=== PATIENT | female | born 1995 | race Caucasian/White ===

== ENCOUNTER 2023-10-18 16:47 | Outpatient (OUT) | payer OTHER, SELFPAY ==
[2023-10-18 17:05] LABS: Basophils Percent Auto 0.5 % (0.2-2.0); Eosinophils Absolute Auto 0.1 10^3/uL (0.0-0.7); Eosinophils Percent Auto 1.8 % (0.9-7.0); Hematocrit 37.3 % (36.0-48.0); Hemoglobin 12.3 g/dL (12.0-16.0); Immature Granulocytes Abs Auto 0.01 10^3/uL (0.00-0.03); Immature Granulocytes Pct Auto 0.2 % (0.0-0.5); Lymphocytes Absolute Auto 1.9 10^3/uL (1.2-3.8); Lymphocytes Percent Auto 29.3 % (20.5-60.0); Mean Corpuscular Hemoglobin 27.6 pg (26.7-34.0); Mean Corpuscular Volume 83.8 fL (81.0-99.0); Mean Platelet Volume 10.1 fL (9.5-13.5); Monocytes Absolute Auto 0.3 10^3/uL (0.3-0.8); Neutrophils Absolute Auto 4.2 10^3/uL (1.4-6.5); Neutrophils Percent Auto 63.2 % (43.0-75.0); Platelet Count 306 10^3/uL (150-450); Red Blood Count 4.45 10^6/uL (4.20-5.40); Red Cell Distribution Width 12.5 % (11.0-15.0); White Blood Count 6.6 10^3/uL (4.0-11.0)
[2023-10-18 17:12] LABS: Erythrocyte Sedimentation Rate 9 mm/hr (<=20)
[2023-10-18 17:41] LABS: Alanine Aminotransferase 16 U/L (14-59); Aspartate Amino Transferase 13 U/L (15-37); Estimated GFR (African America >60 (>=60); Estimated GFR (Non-African Ame >60 (>=60)
[2023-10-18 17:56] LABS: C Reactive Protein <0.50 mg/dL (<=0.50)
== END 2023-10-18 16:48 | disposition home or self-care (01) ==
LOC: LAB 16:52
PROVIDERS: PCP Nurse Practitioner Family
DX: M47.819 Spondylosis without myelopathy or radiculopathy, site unspecified (principal)
CPT/HCPCS: 36415; 82565; 84450; 84460; 84520; 85025; 85652; 86140

== ENCOUNTER 2024-07-08 10:54 | Outpatient (OUT) | payer OTHER, SELFPAY ==
--- OUTSIDE RECORDS SUMMARY | 2024-07-08 10:58 | XMS_ITS | CCD ---
Author Organization [facility] Care Team Providers Care Visualizer Name Role Phone VAN PINEDO Attending Unavailable VAN PINEDO Admitting Unavailable VAN PINEDO Referring Unavailable Bj Leon Primary Care Provider BRANDON ., DR BRENDAN Wilkerson Primary Care Unavailable AIDE ., DR RIGGINS Admitting Unavailable AIDE ., DR RIGGINS Consulting Unavailable AIDE ., DR RIGGINS Attending Unavailable LISA MCCARTHY Admitting Unavailable LISA MCCARTHY Primary Care Unavailable LISA MCCARTHY Consulting Unavailable LISA MCCARTHY Attending Unavailable Lisa Carpio Unavailable STEPHEN JOYCE Attending Unavailable HAIR SONG Attending Unavailable Monica Antunez Unavailable Medications Current Medications Medication Drug Class(es) Dates Sig (Normalized) Sig (Original) acetaminophen 325 mg / HYDROcodone bitartrate 5 mg oral tablet (2 sources) Opioid Agonist Start: 05-30-2020 End: 06-06-2020 take 1-2 tablets by mouth every four hours as needed for pain hydroCODone-aceta minophen 5-325 MG tablet Indications: Acute post-operative pain Take 1-2 tablets by mouth every 4 hours as needed for Moderate Pain or Severe Pain for up to 7 days. 10 tablet 0 05/30/2020 06/06/2020 Active Start: 05-30-2020 End: 05-30-2020 take 1 tablet by mouth every four hours as needed hydroCODone-acetaminophen (NORCO) 5-325 MG per tablet 1 tablet cholecalciferol 0.05 mg oral capsule (2 sources) Vitamin D take 1 capsule by mouth once daily Vitamin D3 50 MCG (1999 UT) TAKE 1 CAPSULE BY MOUTH EVERY DAY Oral for 90 Days Active Coricidin HBP (1 source) Coricidin HBP Active dextromethorphan hydrobromide 15 mg / guaiFENesin 400 mg / pseudoephedrine hydrochloride 60 mg oral tablet (1 source) alpha-Adrenergic Agonist, Uncompetitive L-dqgomt-R-aspartate Receptor Antagonist, Sigma-1 Agonist Start: 08-03-20 23 take 4 tablets by mouth every twenty-four hours as needed Capmist DM 60-15-400 MG as needed Orally every 4-6 hours as needed, max 4 tablets in 24 hours for 5 days Jul, Active ibuprofen 800 mg oral tablet (2 sources) Nonsteroidal Anti-inflammatory Drug Start: 05-30-20 20 take 1 tablet by mouth every eight hours as needed ibuprofen 800 MG tablet Take 1 tablet by mouth every 8 hours as needed for Mild Pain or Moderate Pain. 30 tablet 1 05/30/2020 Active Start: 05-30-2020 End: 05-30-2020 take 1 tablet by mouth every six hours as needed ibuprofen (MOTRIN) tablet 600 mg loratadine 10 mg oral tablet (2 sources) Loratadine 10 MG Oral for 30 Days Active sertraline 50 mg oral tablet (2 sources) Serotonin Reuptake Inhibitor Sertraline HCl 50 MG Oral for 60 Days Active Sertraline HCl 5 0 MG Oral for 60 Days Active Completed/Discontinued Medications Medication Drug Class(es) Dates Sig (Normalized) Sig (Original) acetaminophen 325 mg oral tablet (1 source) Start: 05-30-2020 End: 05-30-2020 take 1 tablet by mouth every four hours as needed acetaminophen (TYLENOL) tablet 325 mg amoxicillin 500 mg oral capsule (2 sources) Penicillin-class Antibacterial Amoxicillin 500 MG Oral for 10 Days Not-Taking calcium chloride 0.0014 meq/ml / potassium chloride 0.004 meq/ml / sodium chloride 0.103 meq/ml / sodium lactate 0.028 meq/ml injectable solution (2 sources) Start: 05-30-2020 End: 05-30-2020 lactated ringers IV solution chlorhexidine gluconate 1.2 mg/ml mouthwash (2 sources) Chlorhexidine Gluconate 0.12 % RINSE, SWISH AND SPIT 15 ML TWICE DAILY FOR TEN DAYS Mouth/Throat for 16 Days Not-Taking clindamycin 150 mg oral capsule (2 sources) Lincosamide Antibacterial Clindamycin HCl 150 MG Oral for 7 Days Not-Taking 1 ml diphenhydrAMINE hydrochloride 50 mg/ml cartridge (1 source) Histamine-1 Receptor Antagonist Start: 05-30-2020 End: 05-30-2020 take 25 mg intravenous route every six hours as needed diphenhydrAMINE (BENADRYL) injection 25 mg EPINEPHrine 0.01 mg/ml / lidocaine hydrochloride 10 mg/ml injectable solution (1 source) Antiarrhythmic, alpha-Adrenergic Agonist, beta-Adrenergic Agonist, Catecholamine, Amide Local Anesthetic Start: 05-30-2020 End: 05-30-2020 lidocaine-epinephrin e 1%-1:[id number] injection 1 ml HYDROmorphone hydrochloride 2 mg/ml cartridge (1 source) Opioid Agonist Start: 05-30-2020 End: 05-30-2020 take 1 mg intravenous route every four hours as needed HYDROmorphone (DILAUDID) injection 1 mg metoprolol tartrate 25 mg oral tablet (2 sources) beta-Adrenergic En take 0.5 tablet by mouth at bedtime Metoprolol Tartrate 25 MG TAKE 1/2 TABLET BY MOUTH IN THE MORNING AND AT BEDTIME Oral for 90 Days Not-Taking 2 ml ondansetron 2 mg/ml injection (1 source) Serotonin-3 Receptor Antagonist Start: 05-30-2020 End: 05-30-2020 ondansetron 4mg/2ml (ZOFRAN) injection 4 mg water 1000 mg/ml irrigation solution (1 source) Start: 05-30-2020 End: 05-30-2020 sterile water irrigation Problems Active Problems Problem Classification Problem Date Documented Date Episodic/Chronic Allergic reactions (3 sources) Allergy, unspecified, initial encounter; Translations: [Other urticaria] Onset: 04-14-2022 Episodic Cancer of cervix (1 source) High grade squamous intraepithelial lesion on cervical Papanicolaou smear; Translations: [HSIL (high grade squamous intraepithelial lesion) on Pap smear of cervix] Episodic Cardiac dysrhythmias (2 sources) Supraventricular tachycardia; Translations: [Supraventricular tachycardia] Onset: 03-22-2023 Chronic Malaise and fatigue (4 sources) Other fatigue; Translations: [OTHER FATIGUE] Onset: 01-22-2023 Episodic Other circulatory disease (2 sources) Postural orthostatic tachycardia syndrome ; Translations: [Postural orthostatic tachycardia syndrome (POTS)] Onset: 03-22-2023 Episodic Other connective tissue disease (2 sources) Hypermobility syndrome; Translations: [Hypermobility syndrome] Onset: 05-31-2023 Episodic Other nervous system disorders (1 source) Acute postoperative pain; Translations: [Acute post-operative pain] Episodic Other upper respiratory disease (1 source) Allergic rhinitis, unspecified Chronic Other upper respiratory disease (1 source) Nasal congestion Episodic Other upper respiratory infections (1 source) Acute pharyngitis, unspecified Episodic Rheumatoid arthritis and related disease (2 sources) Ankylosing spondylitis of unspecified sites in spine; Translations: [Ankylosing spondylitis of unspecified sites in spine] Onset: 05-31-2023 Chronic Unclassified (1 source) Patient encounter status; Translations: [Preop testing] Past or Other Problems Problem Classification Problem Date Documented Da te Episodic/Chronic Other skin disorders (4 sources) Localized swelling, mass and lump, head; Translations: [LOCALIZED SWELLING MASS AND LUMP HEAD] Onset: 04-12-2022 Episodic Viral infection (1 source) COVID-19 Results Test Name Value Interpretation Reference Range Facility COVID/FLU RT-PCRon SARS-CoV-2 (COVID-19) RNA DORINDA+probe Ql (Unsp spec) Positive [facility] Other COVID/FLU RT-PCR Negative [employer] Other [facility] 08-03-2023 S. pyogenes Org specific cx Ql (Throat) Negative [facility] Other [facility] Other [id number] 06-11-2023 [id number] Patient calls again with symptoms. Fatigue, chest pain, brain fog and high HR. Corlanor doesn't seem to be helping. Normal [facility] Patient Messageon 06-09-2023 Patient Message [id number] Zo Lange Nahun 1995 F Date Provider Department Center 06/09/2023 HAIR TAI [facility] CARD [place] [facility] Family History Problem Relation Age of Onset No Known Problems Mother Other Father Ankylosing spondylitis Other Celiac disease Other Rheum arthritis Other Seizures Neg Hx Fainting Neg Hx Sudden Neg Hx Arrhythmia Neg Hx SIDS Neg Hx Congenital heart disease Neg Hx Congenital Hearing Loss Neg Hx Family Status - Relation Status Age at Mother Father Other Alive Neg Hx Normal [facility] CATECHOLAMINES, FRACTIONATED , PLASMAon 05-31-2023 CATECHOLAMINE INTERPRETATION See Note Normal [facility] Comment on above: Order Comment: Supin e 30 minutes NE, EPI, DopamineUpright 30 minutes repeat NE, EPI, Dopamine Result Comment: INTE RPRETIVE INFORMATION: Catecholamines Panel, Plasma Small increases in catecholamines (less than 2 times the upper reference limit) usually are the result of physiological stimuli, drugs, or improper specimen collection. Significant elevation of one or more catecholamines (2 or more times the upper reference limit) is associated with an increased probability of a neuroendocrine tumor. Measurement of plasma or urine fractionated metanephrines provides better diagnostic sensitivity than measurement of catecholamines. Higher catecholamine concentrations are observed in specimens collected from upright or standing adults. Epinephrine may be increased by approximately 20 percent; norepinephrine up to 700 pg/mL; dopamine, unchanged. This test was developed and its performance characteristics determined by [email or web address]. It has not been cleared or approved by the US Food and Drug Administration. This test was performed in a CLIA certified laboratory and is intended for clinical purposes. Performed By: [email or web address] [address] [place] [address] Slater Apprentice: Akira Mercado MD, PhD CLIA Number: [id number] Performed By: #### L [id number] ####[facility] ([facility])[address] [place] [address] DOPAMINE (PG/ML) IN SER/PLAS <20 Normal 0-20 [facility] Comment on above: Order Comment: Supin e 30 minutes NE, EPI, DopamineUpright 30 minutes repeat NE, EPI, Dopamine Performed By: #### L [id number] ####[facility] [place] [address] EPINEPHRINE <10 Low 10-200 [facility] Comment on above: Order Comment: Supin e 30 minutes NE, EPI, DopamineUpright 30 minutes repeat NE, EPI, Dopamine Performed By: #### L [id number] ####[facility] ([facility])[address] [place] [address] NOREPINEPHRINE (PG/ML) IN PLASMA 211 pg/mL Normal 80-520 [facility] Comment on above: Order Comment: Supin e 30 minutes NE, EPI, DopamineUpright 30 minutes repeat NE, EPI, Dopamine Performed By: #### L [id number] ####[facility] ([place])[address] [place] [address] CORTISOLon 05-31-2023 CORTISOL (UG/DL) IN SER/PLAS 3.2 ug/dL Normal 0-9 [facility] Comment on above: Performed By: #### L [id number] ####[facility] ([place])[address] [place] [address] Consulton 05-31-2023 Consult [id number] Zo Lange 1995 F Date Provider Department Center 05/31/2023 135-HAIR SONG [facility] CARD [place] [facility] Family History Problem Relation Age of Onset No Known Problems Mother Other Father Ankylosing spondylitis Other Celiac disease Other Rheum arthritis Other Seizures Neg Hx Fainting Neg Hx Sudden Neg Hx Arrhythmia Neg Hx SIDS Neg Hx Congenital heart disease Neg Hx Congenital Hearing Loss Neg Hx Family Status - Relation Status Age at Mother Father Other Alive Neg Hx Level of Service:19042 NM OFFICE/OUTPATIENT ESTABLISHED MOD MDM 30-39 MIN Reason for Visit and Comments: Follow-up [791582] - POTS Normal [facility] Documentationon 05-31-2023 Documentation [id number] Zo Lange 1995 Date Provider Department Center 05/31/2023 3977-[facility]UL BECK [facility] CARD [place] [facility] Family History Problem Relation Age of Onset No Known Problems Mother Other Father Ankylosing spondylitis Other Celiac disease Other Rheum arthritis Other Seizures Neg Hx Fainting Neg Hx Sudden Neg Hx Arrhythmia Neg Hx SIDS Neg Hx Congenital heart disease Neg Hx Congenital Hearing Loss Neg Hx Family Status - Relation Status Age at Mother Father Other Alive Neg Hx Reason for Visit and Comments: Specialty Pharmacy Note [Other] - Corlanor Normal [facility] HISTAMINE, PLASMAon 05-31-20 23 HISTAMINE PLASMA <8 Normal 0-8 [facility] Comment on above: Result Comment: INTE RPRETIVE INFORMATION: Histamine, Plasma This test was developed and its performance characteristics determined by [email or web address]. It has not been cleared or approved by the US Food and Drug Administration. This test was performed in a CLIA certified laboratory and is intended for clinical purposes. Performed By: [email or web address] [address] [place] [address] Slater Apprentice: Akira Mercado MD, PhD CLIA Number: [id number] Performed By: #### L [id number] ####[facility] ([facility] [place] [address] Labon 05-31-2023 Lab [id number] Zo Lange 1995 F Date Provider Department [place] 05/31/2023 2245-[facility] OPD LAB RESOURCE [facility] [place] [facility] Family History Problem Relation Age of Onset No Known Problems Mother Other Father Ankylosing spondylitis Other Celiac disease Other Rheum arthritis Other Seizures Neg Hx Fainting Neg Hx Sudden Neg Hx Arrhythmia Neg Hx SIDS Neg Hx Congenital heart disease Neg Hx Congenital Hearing Loss Neg Hx Family Status - Relation Status Age at Mother Father Other Alive Neg Hx Normal [facility] METANEPHRINES PLASMAon 05-31 METANEPHRINE 0.11 nmol/L Normal 0.00-0.49 [facility] Comment on above: Performed By: #### L [id number] ####[facility] ([facility])[address] [place] [address] METANEPHRINE INTERP See Note Normal [facility] Comment on above: Result Comment: INTE RPRETIVE INFORMATION: Metanephrines, Plasma (Free) This test is useful in the detection of pheochromocytoma, a rare neuroendocrine tumor. The majority of patients with pheochromocytoma have a plasma normetanephrine concentration in excess of 2.2 nmol/L and/or a metanephrine concentration in excess of 1.1 nmol/L. Increased concentrations of these analytes serve as confirmation for diagnosis. Patients with essential hypertension and plasma concentrations of normetanephrine below 0.9 nmol/L and a metanephrine concentration below 0.5 nmol/L, can be excluded from further testing. If clinical suspicion remains, repeat testing or testing for metanephrines in a 24-hr. urine specimen should be considered. This test was developed and its performance characteristics determined by [email or web address]. It has not been cleared or approved by the [place] Food and Drug Administration. This test was performed in a CLIA certified laboratory and is intended for clinical purposes. Performed By: [email or web address] [address] [place] [address] Slater Apprentice: Akira Mercado MD, PhD CLIA Number: [id number] Performed By: #### L [id number] ####[facility] ([facility])[address] [place] [address] NORMETANEPHRINE 0.22 nmol/L Normal 0.00-0.89 [facility] Comment on above: Performed By: #### L [id number] ####[facility] ([facility])[address] [place] [address] PTH, INTACTon 05-31-2023 PARATHYRIN INTACT (PG/ML) IN SER/PLAS 27 pg/mL Normal 12-88 [facility] Comment on above: Performed By: #### L [id number] ####[facility] ([place])[address] [place] [address] THYROID PEROXIDASE ANTIBODYo n 05-31-2023 THYROPEROXIDASE AB (IU/ML) IN SER/PLAS 2.3 IU/mL Normal 0.0-9.0 [facility] Comment on above: Result Comment: Perf ormed By: [facility] [address] [place] [address] Slater Apprentice: Akira Mercado MD, PhD CLIA Number: [id number] Performed By: #### L [id number] ####[facility] ([facility])[address] [place] [address] THYROID STIMULATING IMMUNOGL OBULINon 05-31-2023 THYROID STIMULATING IMMUNOGLOBULIN <0.10 Normal <=0.54 [facility] Comment on above: Result Comment: INTE RPRETIVE INFORMATION: Thyroid Stimulating Immunoglobulin (TSI) 0.54 IU/L or less.........Consistent with healthy thyroid function or non-Graves thyroid or autoimmune disease. Those with healthy thyroid function typically have results less than 0.1 IU/L. 0.55 IU/L or greater......Consistent with Graves disease (autoimmune hyperthyroidism) This assay specifically detects thyroid stimulating autoantibodies. For diagnostic purposes, the results obtained from this assay should be used in combination with clinical examination, patient medical history, and other findings. Performed By: [email or web address] [address] [place] [address] Slater Apprentice: Akira Mercado MD, PhD CLIA Number: [id number] Performed By: #### L [id number] ####[facility] ([facility])[address] [place] [address] TRYPTASEon 05-31-2023 TRYPTASE (NG/ML) IN SER/PLAS 5.4 ug/L Normal <=10.9 [facility] Comment on above: Result Comment: Perf ormed By: [email or web address] [address] [place] [address] Slater Apprentice: Akira Mercado MD, PhD CLIA Number: [id number] Performed By: #### L [id number] ####[facility] ([facility])[address] [place] [address] [facility] 05-09-2023 S. pyogenes Org specific cx Ql (Throat) Negative [facility] [employer] Other Quick Strep [facility] [employer] Other 36on 03-30-2023 36 ? She can take two pills if BP is above 100 and HR is high. I agree with arm BP cuff for monitoring. Thanks. [facility] 36 Incomplete Note ? She can take two pills if BP is above 100 and HR is high. I agree with arm BP cuff for monitoring. Thanks. [facility] 36 She can take two pills if BP is above 100 and HR is high. I agree with arm BP cuff for monitoring. Thanks. [facility] 36 Patient called to make you aware that her HR is still in the 150's. She said after you started her on low dose metoprolol, the first two days were fine. Ever since then her HR has shot back up. She isn't scheduled with Lindsey yet so I will reach back out to the [facility] girls again. I advised patient to get a BP cuff if possible. Any suggestions for her? Thanks! [facility] 36on 03-22-2023 36 Hi Radha. Can you please get this patient set up to see Lindsey for POTS? Thanks so much. [facility] Center Office Visiton 03-22-2023 Follow-up visit [id number] Davidson Langecarlo Garnica 1995 F Date Provider Department Center 03/22/2023 STEPHEN PAYNE JAD Callahan No family history on file Level of Service:39791 NM OFFICE/OUTPATIENT ESTABLISHED LOW MDM 20-29 MIN Reason for Visit and Comments: Rapid Heart Rate [218807] Chest Pain [389792] Shortness of Breath [274353] Fatigue [46] Normal [facility] ESTROGENon 01-30-2023 Estrogens, Total 42 pg/mL Normal [facility] Comment on above: Result Comment: Prep ubertal < 40 Female Cycle: 1-10 Days 16 - 328 11-20 Days 34 - 501 21-30 Days 48 - 350 Post-Menopausal 40 - 244 Performed By: #### T SH, FT3, CMP, LIPID, T4 #### [facility] [address] [place] [address] Dr. John Patel FSHon 01-23-2023 FSH 5.0 mIU/mL Normal [facility] Comment on above: Result Comment: Adul t Female: Follicular phase 3.5 - 12.5 Ovulation phase 4.7 - 21.5 Luteal phase 1.7 - 7.7 Postmenopausal 25.8 - 134.8 Performed By: #### L [facility] #### [facility] [address] [place] [address] Dr. John Patel INSULINon 01-23-2023 Insulin 7.6 uIU/mL Normal 2.6-24.9 [facility] Comment on above: Performed By: #### T SH, FT3, CMP, LIPID, T4 #### [facility] [address] [place] [address] Dr. John Patel PROGESTERONEon 01-23-2023 Progesterone 0.2 ng/mL Normal [facility] Comment on above: Result Comment: Foll icular phase 0.1 - 0.9 Luteal phase 1.8 - 23.9 Ovulation phase 0.1 - 12.0 First trimester 11.0 - 44.3 Second trimester 25.4 - 83.3 Third trimester 58.7 - 214.0 Postmenopausal 0.0 - 0.1 Performed By: #### P ROGES #### [facility] [address] [place] [address] Dr. John Patel PROLACTINon 01-23-2023 Prolactin 8.6 ng/mL Normal 4.8-23.3 [facility] Comment on above: Performed By: #### T SH, FT3, CMP, LIPID, T4 #### [facility] [address] [place] [address] Dr. John Patel CBC AUTO DIFFon 01-22-2023 BASO # 0.0 103/ul Normal 0.0-0.1 [facility] Comment on above: Performed By: #### T SH, FT3, CMP, LIPID, T4 #### [facility] [address] [place] [address] Dr. John Patel Basophils/100 WBC (Bld) 0.5 % Normal 0.2-2.0 [facility] Comment on above: Performed By: #### T SH, FT3, CMP, LIPID, T4 #### [facility] [address] [place] [address] Dr. John Patel EO # 0.1 103/ul Normal 0.0-0.7 [facility] Comment on above: Performed By: #### T SH, FT3, CMP, LIPID, T4 #### [facility] [address] [place] [address] Dr. John Patel Eosinophils/100 WBC (Bld) 0.7 % Critically low 0.9-7.0 [facility] Comment on above: Performed By: #### T SH, FT3, CMP, LIPID, T4 #### [facility] [address] [place] [address] Dr. John Patel Erythrocyte distribution width (RBC) [Ratio] 12.3 % Normal 11.0-15.0 [facility] Comment on above: Performed By: #### T SH, FT3, CMP, LIPID, T4 #### [facility] [address] [place] [address] Dr. John Patel Hematocrit (Bld) [Volume fraction] 37.7 % Normal 36.0-48.0 [facility] Comment on above: Performed By: #### T SH, FT3, CMP, LIPID, T4 #### [facility] [address] [place] [address] Dr. John Patel Hemoglobin (Bld) [Mass/Vol] 12.8 g/dL Normal 12.0-16.0 [facility] Comment on above: Performed By: #### T SH, FT3, CMP, LIPID, T4 #### [facility] [address] [place] [address] Dr. John Patel IG # 0.03 10e3/ul Normal 0.00-0.03 [facility] Comment on above: Performed By: #### T SH, FT3, CMP, LIPID, T4 #### [facility] [address] [place] [address] Dr. John Patel IG % 0.4 % Normal 0.0-0.5 [facility] Comment on above: Performed By: #### T SH, FT3, CMP, LIPID, T4 #### [facility] [address] [place] [address] Dr. John Patel LYMPH # 1.8 103/ul Normal 1.2-3.8 [facility] Comment on above: Performed By: #### T SH, FT3, CMP, LIPID, T4 #### [facility] [address] [place] [address] Dr. John Patel Lymphocytes/100 WBC (Bld) 21.4 % Normal 20.5-60.0 [facility] Comment on above: Performed By: #### T SH, FT3, CMP, LIPID, T4 #### [facility] [address] [place] [address] Dr. John Patel MANUAL DIFF REQ NO Normal [facility] Comment on above: Performed By: #### T SH, FT3, CMP, LIPID, T4 #### [facility] [address] [place] [address] Dr. John Patel MCH (RBC) [Entitic mass] 27.6 pg Normal 26.7-34.0 [facility] Comment on above: Performed By: #### T SH, FT3, CMP, LIPID, T4 #### [facility] [address] [place] [address] Dr. John Patel MCHC (RBC) [Mass/Vol] 34.0 g/dL Normal 29.9-35.2 [facility] Comment on above: Performed By: #### T SH, FT3, CMP, LIPID, T4 #### [facility] [address] [place] [address] Dr. John Patel MCV (RBC) [Entitic vol] 81.3 fL Normal 81.0-99.0 [facility] Comment on above: Performed By: #### T SH, FT3, CMP, LIPID, T4 #### [facility] [address] [place] [address] Dr. John Patel MONO # 0.4 103/ul Normal 0.3-0.8 [facility] Comment on above: Performed By: #### T SH, FT3, CMP, LIPID, T4 #### [facility] [address] [place] [address] Dr. John Patel Monocytes/100 WBC (Bld) 4.5 % Normal 1.7-12.0 [facility] Comment on above: Performed By: #### T SH, FT3, CMP, LIPID, T4 #### [facility] Laboratory [address] [place] [address] Dr. John Patel NEUT # 6.2 103/ul Normal 1.4-6.5 [facility] Comment on above: Performed By: #### T SH, FT3, CMP, LIPID, T4 #### [facility] [address] [place] [address] Dr. John Patel Neutrophils/100 WBC (Bld) 72.5 % Normal 43.0-75.0 [facility] Comment on above: Performed By: #### T SH, FT3, CMP, LIPID, T4 #### [facility] [address] [place] [address] Dr. John Patel Platelet mean volume (Bld) [Entitic vol] 10.1 fL Normal 9.5-13.5 [facility] Comment on above: Performed By: #### T SH, FT3, CMP, LIPID, T4 #### [facility] [address] [address] [address] John Patel PLT 295 103/ul Normal 150-450 [facility] Comment on above: Performed By: #### T SH, FT3, CMP, LIPID, T4 #### [facility] [address] [address] [address] John Patel RBC 4.64 106/ul Normal 4.20-5.40 [facility] Comment on above: Performed By: #### T SH, FT3, CMP, LIPID, T4 #### [facility] [address] [address] [address] John Patel WBC 8.5 103/ul Normal 4.0-11.0 [facility] Comment on above: Performed By: #### T SH, FT3, CMP, LIPID, T4 #### [facility] [address] [place] [address] Dr. John Patel FREE T3on 01-22-2023 FREE T3 2.44 pg/mlL Normal 2.18-3.98 [facility] Comment on above: Performed By: #### T SH, FT3, CMP, LIPID, T4 #### [facility] [address] [place] [address] Dr. John Patel GLYCOHEMOGLOBIN A1Con 2022 ADA RECOMMENDATION SEE BELOW Normal [facility] Comment on above: Result Comment: ADA RECOMMENDED LIMIT 4.0 - 6.0 ADA THERAPEUTIC TARGET < 7.0 ACTION SUGGESTED > 7.0 Performed By: #### A 1C #### [facility] [address] [place] [address] Dr. John Patel Glucose [Mass/Vol] 94 mg/dL Normal [facility] Comment on above: Performed By: #### A 1C #### [facility] [address] [place] [address] Dr. John Patel HbA1c (Bld) [Mass fraction] 4.9 % Normal 4.5-6.2 [facility] Comment on above: Performed By: #### A 1C #### [facility] [address] [address] [address] John Patel IRONon 01-22-2023 Iron [Mass/Vol] 55.0 ug/dL Normal 50.0-170.0 [facility] Comment on above: Performed By: #### V ITAD, IRON #### [facility] [address] [address] [address] John Patel LIPID PROFILEon 01-22-2023 CHOL-HDL RATIO NORM SEE BELOW Normal [facility] Comment on above: Result Comment: 3.3 - 4.4 LOW RISK 4.4 - 7.1 AVERAGE RISK 7.1 - 11.0 MODERATE RISK >11.0 HIGH RISK Performed By: #### T SH, FT3, CMP, LIPID, T4 #### [facility] [address] [address] [address] John Patel Cholesterol [Mass/Vol] 156 mg/dL Normal <=200 [facility] Comment on above: Performed By: #### T SH, FT3, CMP, LIPID, T4 #### [facility] [address] [address] [address] John Patel Cholesterol in HDL [Mass/Vol] 50 mg/dL Normal 40-60 [facility] Comment on above: Performed By: #### T SH, FT3, CMP, LIPID, T4 #### [facility] [address] [address] [address] John Patel Cholesterol in LDL [Mass/Vol] 90.6 mg/dL Normal [facility] Comment on above: Performed By: #### T SH, FT3, CMP, LIPID, T4 #### [facility] [address] [address] [address] John Patel Cholesterol.total/Cho lesterol in HDL [Mass ratio] 3.1 {ratio} Normal [facility] Comment on above: Performed By: #### T SH, FT3, CMP, LIPID, T4 #### [facility] [address] [address] [address] John Patel HDL NORMAL > or = 60 mg/dl - LOW CARDIOVASCULAR RISK <40 mg/dl - HIGH CARDIOVASCULAR RISK Normal [facility] Comment on above: Performed By: #### T SH, FT3, CMP, LIPID, T4 #### [facility] [address] [address] [address] John Patel LDL CALC NORMAL SEE BELOW Normal [facility] Comment on above: Result Comment: <100 mg/dl OPTIMAL 100 - 129 mg/dl NEAR OR ABOVE OPTIMAL 130 - 159 mg/dl BORDERLINE HIGH 160 - 189 mg/dl HIGH >190 mg/dl VERY HIGH Performed By: #### T SH, FT3, CMP, LIPID, T4 #### [facility] [address] [address] [address] John Patel Triglyceride [Mass/Vol] 77 mg/dL Normal <=150 [facility] Comment on above: Performed By: #### T SH, FT3, CMP, LIPID, T4 #### [facility] [address] [address] [address] John Patel VLDL CALC 15.4 mg/dL Normal [facility] Comment on above: Performed By: #### T SH, FT3, CMP, LIPID, T4 #### [facility] [address] [address] [address] John Patel PROF 14(COMP METB)on 023 Albumin [Mass/Vol] 3.6 g/dL Normal 3.4-5.0 [facility] Comment on above: Performed By: #### T SH, FT3, CMP, LIPID, T4 #### [facility] [address] [address] [address] John Patel Albumin/Globulin [Mass ratio] 1.0 {ratio} Normal [facility] Comment on above: Performed By: #### T SH, FT3, CMP, LIPID, T4 #### [facility] [address] [address] [address] John Patel ALP [Catalytic activity/Vol] 67 U/L Normal 46-116 [facility] Comment on above: Performed By: #### T SH, FT3, CMP, LIPID, T4 #### [facility] [address] [address] [address] John Patel ALT [Catalytic activity/Vol] 23 U/L Normal 14-59 [facility] Comment on above: Performed By: #### T SH, FT3, CMP, LIPID, T4 #### [facility] [address] [place] [address] Dr. John Patel Anion gap [Moles/Vol] 14.8 mmol/L Normal [facility] Comment on above: Performed By: #### T SH, FT3, CMP, LIPID, T4 #### [facility] [address] [address] [address] John Patel AST [Catalytic activity/Vol] 12 U/L Critically low 15-37 [facility] Comment on above: Performed By: #### T SH, FT3, CMP, LIPID, T4 #### [facility] [address] [place] [address] Dr. John Patel Bilirubin [Mass/Vol] 0.3 mg/dL Normal 0.2-1.0 [facility] Comment on above: Performed By: #### T SH, FT3, CMP, LIPID, T4 #### [facility] [address] [place] [address] Dr. John Patel Calcium [Mass/Vol] 8.7 mg/dL Normal 8.5-10.1 [facility] Comment on above: Performed By: #### T SH, FT3, CMP, LIPID, T4 #### [facility] [address] [place] [address] Dr. John Patel Chloride [Moles/Vol] 106 mmol/L Normal 98-107 [facility] Comment on above: Performed By: #### T SH, FT3, CMP, LIPID, T4 #### [facility] [address] [place] [address] Dr. John Patel CO2 [Moles/Vol] 25.1 mmol/L Normal 21.0-32.0 [facility] Comment on above: Performed By: #### T SH, FT3, CMP, LIPID, T4 #### [facility] [address] [place] [address] Dr. John Patel Creatinine [Mass/Vol] 0.67 mg/dL Normal 0.55-1.02 [facility] Comment on above: Performed By: #### T SH, FT3, CMP, LIPID, T4 #### [facility] [address] [place] [address] Dr. John Patel EGFR-AF GREENLANDIC >60 Normal >=60 [facility] Comment on above: Performed By: #### T SH, FT3, CMP, LIPID, T4 #### [facility] [address] [place] [address] Dr. John Patel EGFR-NON AF GREENLANDIC >60 Normal >=60 [facility] Comment on above: Performed By: #### T SH, FT3, CMP, LIPID, T4 #### [facility] [address] [place] [address] Dr. John Patel Globulin (S) [Mass/Vol] 3.6 g/dL Normal [facility] Comment on above: Performed By: #### T SH, FT3, CMP, LIPID, T4 #### [facility] [address] [place] [address] Dr. John Patel Glucose [Mass/Vol] 89 mg/dL Normal 74-106 [facility] Comment on above: Performed By: #### T SH, FT3, CMP, LIPID, T4 #### [facility] [address] [place] [address] Dr. John Patel Potassium [Moles/Vol] 3.9 mmol/L Normal 3.5-5.1 [facility] Comment on above: Performed By: #### T SH, FT3, CMP, LIPID, T4 #### [facility] [address] [place] [address] Dr. John Patel Protein [Mass/Vol] 7.2 g/dL Normal 6.4-8.2 [facility] Comment on above: Performed By: #### T SH, FT3, CMP, LIPID, T4 #### [facility] [address] [place] [address] Dr. John Patel Sodium [Moles/Vol] 142 mmol/L Normal 136-145 [facility] Comment on above: Performed By: #### T SH, FT3, CMP, LIPID, T4 #### [facility] [address] [address] [address] John Patel Urea nitrogen [Mass/Vol] 10.0 mg/dL Normal 7.0-18.0 [facility] Comment on above: Performed By: #### T SH, FT3, CMP, LIPID, T4 #### [facility] [address] [place] [address] Dr. John Patel Urea nitrogen/Creatinine [Mass ratio] 14.9 mg/mg Normal [facility] Comment on above: Performed By: #### T SH, FT3, CMP, LIPID, T4 #### [facility] [address] [address] [address] John Patel T4on 01-22-2023 T4 [Mass/Vol] 6.60 ug/dL Normal 4.80-13.[address] [facility] Comment on above: Performed By: #### T SH, FT3, CMP, LIPID, T4 #### [facility] [address] [place] [address] Dr. John Patel TSHon 01-22-2023 TSH 1.541 uIU/mL Normal 0.358-3.740 [facility] Comment on above: Performed By: #### T SH, FT3, CMP, LIPID, T4 #### [facility] [address] [place] [address] Dr. John Patel VITAMIN D 25 OHon 01-22-2023 VIT D 25-OH 22.3 ng/mL Normal [facility] Comment on above: Performed By: #### V ITKAYLEIGH, IRON #### [facility] [address] [place] [address] Dr. John Patel VIT D RANGES SEE BELOW Normal [facility] Comment on above: Result Comment: <20 ng/mL Vit D deficient 20 - <30 ng/mL Vit D insufficient 30 - 100 ng/mL Vit D sufficient >100 ng/mL Potential Toxicity Performed By: #### V ITKAYLEIGH, IRON #### [facility] [address] [place] [address] Dr. John Patel Quantiferon TB-Gold+on 09-02 QFT MITOGEN ZAYRA > 10.00 Normal . [facility] Comment on above: Performed By: #### L 3400.8000 #### [facility] (refer to report for specific site) refer to report for address and phone number QFT NIL VALUE 0.03 IU/mL Normal . [facility] Comment on above: Performed By: #### L 3400.8000 #### [facility] (refer to report for specific site) refer to report for address and phone number QFT TB GOLD Comment Normal . [facility] Comment on above: Result Comment: The QuantiFERON-TB Gold Plus result is determined by subtracting the Nil value from either TB antigen (Ag) tube. The mitogen tube serves as a control for the test. Performed By: #### L 3400.8000 #### [facility] (refer to report for specific site) refer to report for address and phone number QFT TB POS CRIT Negative Normal Negative [facility] Comment on above: Result Comment: The specimen received for QuantiFERON testing was incubated by the ordering institution. Specific procedures outlined in our Directory of Services and in the package insert for the QuantiFERON Gold (In Tube) test must be followed to enable for proper stimulation of cells for the production of interferon gamma. Performed at: [facility] [id number] [place] Account Representative: Galindo Forte PhD, Phone: [phone] Performed By: #### L 3400.7999 #### [facility] (refer to report for specific site) refer to report for address and phone number QFT TB1+ AG ZAYRA 0.04 IU/mL Normal . [facility] Comment on above: Performed By: #### L 3400.7999 #### [facility] (refer to report for specific site) refer to report for address and phone number QFT TB2+ AG ZAYRA 0.02 IU/mL Normal . [facility] Comment on above: Performed By: #### L 3400.8000 #### [facility] (refer to report for specific site) refer to report for address and phone number CBC W/Diff, Automatedon 12-2 Absolute Neut 5.8 X10 3/uL Normal 2.0-7.7 [facility] Comment on above: Performed By: #### L 3400.8000 #### [facility] (refer to report for specific site) refer to report for address and phone number Basophils/100 WBC (Bld) 0.5 % Normal 0-1 [facility] Comment on above: Performed By: #### L 3400.8000 #### [facility] (refer to report for specific site) refer to report for address and phone number Eosinophils/100 WBC (Bld) 0.8 % Normal 0-5 [facility] Comment on above: Performed By: #### L 3400.8000 #### [facility] (refer to report for specific site) refer to report for address and phone number Erythrocyte distribution width (RBC) [Ratio] 12.3 % Normal 11.6-14.6 [facility] Comment on above: Performed By: #### L 3400.8000 #### [facility] (refer to report for specific site) refer to report for address and phone number Hematocrit (Bld) [Volume fraction] 37.7 % Normal 37-47 [facility] Comment on above: Performed By: #### L 3400.8000 #### [facility] (refer to report for specific site) refer to report for address and phone number Hemoglobin (Bld) [Mass/Vol] 12.5 g/dL Normal 12.0-15.0 [facility] Comment on above: Performed By: #### L 3400.8000 #### [facility] (refer to report for specific site) refer to report for address and phone number IM GRAN % 0.500 % Normal 0.0-0.9 [facility] Comment on above: Result Comment: IG% - Immature Granulocytes (promyelocytes, myelocytes and metamyelocytes) > 1% indicates that a LEFT SHIFT is Present. Performed By: #### L 3400.8000 #### [facility] (refer to report for specific site) refer to report for address and phone number Lymphocytes (Bld) [#/Vol] 1.92 X10 3/uL Normal 0.83-4.51 [facility] Comment on above: Performed By: #### L 3400.8000 #### [facility] (refer to report for specific site) refer to report for address and phone number Lymphocytes/100 WBC (Bld) 23.0 % Normal 19-41 [facility] Comment on above: Performed By: #### L 3400.8000 #### [facility] (refer to report for specific site) refer to report for address and phone number MCH (RBC) [Entitic mass] 28.0 pg Normal 27.0-32.0 [facility] Comment on above: Performed By: #### L 3400.8000 #### [facility] (refer to report for specific site) refer to report for address and phone number MCHC (RBC) [Mass/Vol] 33.2 g/dL Normal 32-36 [facility] Comment on above: Performed By: #### L 3400.8000 #### [facility] (refer to report for specific site) refer to report for address and phone number MCV (RBC) [Entitic vol] 84.5 fL Normal 81-99 [facility] Comment on above: Performed By: #### L 3400.8000 #### [facility] (refer to report for specific site) refer to report for address and phone number Monocytes/100 WBC (Bld) 5.5 % Normal 0-10 [facility] Comment on above: Performed By: #### L 3400.8000 #### [facility] (refer to report for specific site) refer to report for address and phone number Neutrophils/100 WBC (Bld) 69.7 % Normal 47-70 [facility] Comment on above: Performed By: #### L 3400.8000 #### [facility] (refer to report for specific site) refer to report for address and phone number NRBC, FLAGGED 0 % Normal 0-5 [facility] Comment on above: Performed By: #### L 3400.8000 #### [facility] (refer to report for specific site) refer to report for address and phone number Platelet mean volume (Bld) [Entitic vol] 10.6 fL Normal 6.2-12.0 [facility] Comment on above: Performed By: #### L 3400.8000 #### [facility] (refer to report for specific site) refer to report for address and phone number Platelets (Bld) [#/Vol] 307 10*3/uL Normal 150-450 [facility] Comment on above: Performed By: #### L 3400.8000 #### [facility] (refer to report for specific site) refer to report for address and phone number RBC (Bld) [#/Vol] 4.46 M/mm3 Normal 4.2-5.4 [facility] Comment on above: Performed By: #### L 3400.8000 #### [facility] (refer to report for specific site) refer to report for address and phone number RDW SD 37.5 fl Normal 35.1-43.9 [facility] Comment on above: Performed By: #### L 3400.8000 #### [facility] (refer to report for specific site) refer to report for address and phone number WBC (Bld) [#/Vol] 8.3 10*3/uL Normal 4.4-11.0 [facility] Comment on above: Performed By: #### L 3400.8000 #### [facility] (refer to report for specific site) refer to report for address and phone number Cerv Spine 4 or 5 Viewson Cerv Spine 4 or 5 Views [facility] Imaging Services [address] [place] [address] Cerv Spine 4 or 5 Views MR#: [id number] Acct: [id number] Name: ZO REZA Rep #: [id number] : 1995 F 25 From: Leonardo restrepo MD PCP: Dr. Bj Leon MD Status: [facility] CLI Study: Cerv Spine 4 or 5 Views Date of Exam: 08/27/20 Exam# [id number] Ordering Dr: Desi Moraes MD STUDY: X-RAY - CERVICAL SPINE REASON FOR EXAM: Female, 25 years old. RHEUMATOID ARTHRITIS, NECK PAIN TECHNIQUE: 5 view(s) of the cervical spine were obtained including oblique views. COMPARISON: None FINDINGS: Normal anterior atlantoaxial articulation. Normal odontoid process. Normal cervical lordosis. Normal vertebral bodies and endplates. Normal disc space heights. Normal visualized intervertebral neuroforamina. The soft tissue structures are unremarkable. RAD/Cerv Spine 4 or 5 Views IMPRESSION: Normal x-ray examination of the visualized cervical spine. Electronically Signed: Leonardo Albrecht, at 11:10 EST , Service support , CC: Dr. Bj Leon MD; Dr. Desi Moraes MD Sawsmith: Signed Normal [facility] Chest PA and Lateralon 08-27 Chest PA and Lateral [facility] Imaging Services [address] [place] [id number] Chest PA and Lateral MR#: [id number] Acct: [id number] Name: ZO REZA Rep #: [id number] : 1995 25 From: Matheus stahl MD PCP: Dr. Bj Leon MD Status: [facility] CLI Study: Chest PA and Lateral Date of Exam: 08/27/20 Exam# [id number] Ordering Dr: Desi Moraes MD STUDY: X-RAY CHEST REASON FOR EXAM: Female, 25 years old. RHEUMATOID ARTHRITIS, NECK PAIN TECHNIQUE: Frontal and lateral views of the chest. COMPARISON: None. FINDINGS: The lungs are clear and expanded. There is no demonstrated pleural abnormality. Normal size heart. Normal mediastinum and marianne. Normal visualized pulmonary arteries. Normal visualized aortic arch and descending thoracic aorta. Normal visualized thoracic spine. Normal visualized ribs, clavicles, and shoulders. There is no demonstrated abnormality of the visualized soft tissue structures of the upper abdomen. RAD/Chest PA and Lateral IMPRESSION: Normal x-ray examination of the chest. Electronically Signed: Matheus Garcia MD at 17:56 EST , Service support , CC: Dr. Bj Leon MD; Dr. Desi Moraes MD Sawsmith: Signed Normal [facility] Comprehensive Metabolic Prof ilon 08-27-2020 Albumin [Mass/Vol] 3.8 g/dL Normal 3.2-5.0 [facility] Comment on above: Performed By: #### L 3400.8000 #### [facility] (refer to report for specific site) refer to report for address and phone number Albumin/Globulin [Mass ratio] 1.1 {ratio} Normal 0.9-2.4 [facility] Comment on above: Performed By: #### L 3400.8000 #### [facility] (refer to report for specific site) refer to report for address and phone number ALK P 60 U/L Normal 45-117 [facility] Comment on above: Performed By: #### L 3400.8000 #### [facility] (refer to report for specific site) refer to report for address and phone number ALT [Catalytic activity/Vol] 19 U/L Normal 13-56 [facility] Comment on above: Performed By: #### L 3400.8000 #### [facility] (refer to report for specific site) refer to report for address and phone number AST [Catalytic activity/Vol] 11 U/L Low 15-37 [facility] Comment on above: Performed By: #### L 3400.8000 #### [facility] (refer to report for specific site) refer to report for address and phone number Bilirubin [Mass/Vol] 0.20 mg/dL Normal 0.20-1.00 [facility] Comment on above: Result Comment: For patients on eltrombopag therapy, use of Dimension Debary TBIL is not recommended. Performed By: #### L 3400.8000 #### [facility] (refer to report for specific site) refer to report for address and phone number Calcium [Mass/Vol] 8.6 mg/dL Normal 8.5-10.1 [facility] Comment on above: Performed By: #### L 3400.8000 #### [facility] (refer to report for specific site) refer to report for address and phone number Chloride [Moles/Vol] 105 mmol/L Normal 98-107 [facility] Comment on above: Performed By: #### L 3400.7999 #### [facility] (refer to report for specific site) refer to report for address and phone number CO2 [Moles/Vol] 29.0 mmol/L Normal 21.0-32.0 [facility] Comment on above: Performed By: #### L 3400.8000 #### [facility] (refer to report for specific site) refer to report for address and phone number Creatinine [Mass/Vol] 0.80 mg/dL Normal 0.55-1.02 [facility] Comment on above: Result Comment: The validity of the calculated GFR AND GFRAA in patients over 70 years has not been determined. Clinical correlation is essential. Performed By: #### L 3400.8000 #### [facility] (refer to report for specific site) refer to report for address and phone number EST GFR - AA 113 mL/min Normal >60 [facility] Comment on above: Result Comment: Afri can Macanese GFR Calc Performed By: #### L 3400.8000 #### [facility] (refer to report for specific site) refer to report for address and phone number GAP 5 Normal 5-15 [facility] Comment on above: Performed By: #### L 3400.8000 #### [facility] (refer to report for specific site) refer to report for address and phone number GFR/1.73 sq M predicted among non-blacks MDRD (S/P/Bld) [Vol rate/Area] 93 mL/min/{1.73_m2} Normal >60 [facility] Comment on above: Result Comment: Non- GFR Calc Performed By: #### L 3400.8000 #### [facility] (refer to report for specific site) refer to report for address and phone number Globulin (S) [Mass/Vol] 3.4 g/dL Normal 2.2-4.2 [facility] Comment on above: Performed By: #### L 3400.8000 #### [facility] (refer to report for specific site) refer to report for address and phone number Glucose [Mass/Vol] 81 mg/dL Normal 74-106 [facility] Comment on above: Result Comment: Frank santos note revised GLUCOSE reference range effective 2017. Performed By: #### L 3400.8000 #### [facility] (refer to report for specific site) refer to report for address and phone number Potassium [Moles/Vol] 3.8 mmol/L Normal 3.5-5.1 [facility] Comment on above: Performed By: #### L 3400.7999 #### [facility] (refer to report for specific site) refer to report for address and phone number Sodium [Moles/Vol] 139 mmol/L Normal 136-145 [facility] Comment on above: Performed By: #### L 3400.7999 #### [facility] (refer to report for specific site) refer to report for address and phone number T PROT 7.2 g/dL Normal 6.4-8.2 [facility] Comment on above: Performed By: #### L 3400.8000 #### [facility] (refer to report for specific site) refer to report for address and phone number Urea nitrogen [Mass/Vol] 14 mg/dL Normal 7-18 [facility] Comment on above: Performed By: #### L 3400.7999 #### [facility] (refer to report for specific site) refer to report for address and phone number Urea nitrogen [Mass/Vol] 17.4 RATIO Normal 10-20 [facility] Comment on above: Performed By: #### L 3400.8000 #### [facility] (refer to report for specific site) refer to report for address and phone number Quantiferon TB-Gold+on 06-28 QFT MITOGEN ZAYRA > 10.00 Normal . [facility] Comment on above: Performed By: #### L 3400.8000 #### [facility] (refer to report for specific site) refer to report for address and phone number QFT NIL VALUE 0.01 IU/mL Normal . [facility] Comment on above: Performed By: #### L 3400.8000 #### [facility] (refer to report for specific site) refer to report for address and phone number QFT TB GOLD Comment Normal . [facility] Comment on above: Result Comment: The QuantiFERON-TB Gold Plus result is determined by subtracting the Nil value from either TB antigen (Ag) tube. The mitogen tube serves as a control for the test. Performed By: #### L 3400.8000 #### [facility] (refer to report for specific site) refer to report for address and phone number QFT TB POS CRIT Negative Normal Negative [facility] Comment on above: Result Comment: The specimen received for QuantiFERON testing was incubated by the ordering institution. Specific procedures outlined in our Directory of Services and in the package insert for the QuantiFERON Gold (In Tube) test must be followed to enable for proper stimulation of cells for the production of interferon gamma. Performed at: [address] [id number] [place] Account Representative: Galindo Forte PhD, Phone: [phone] Performed By: #### L 3400.8000 #### [facility] (refer to report for specific site) refer to report for address and phone number QFT TB1+ AG ZAYRA 0.02 IU/mL Normal . [facility] Comment on above: Performed By: #### L 3400.8000 #### [facility] (refer to report for specific site) refer to report for address and phone number QFT TB2+ AG ZAYRA 0.01 IU/mL Normal . [facility] Comment on above: Performed By: #### L 3400.8000 #### [facility] (refer to report for specific site) refer to report for address and phone number CBC W/Diff, Automatedon 10-2 0-2020 Absolute Neut 6.6 X10 3/uL Normal 2.0-7.7 [facility] Comment on above: Performed By: #### L 100.0100 #### [facility] [address] [place], [address] Basophils/100 WBC (Bld) 0.3 % Normal 0-1 [facility] Comment on above: Performed By: #### L 100.0100 #### [facility] [address] [place], [address] Eosinophils/100 WBC (Bld) 0.6 % Normal 0-5 [facility] Comment on above: Performed By: #### L 100.0100 #### [facility] [address] [place], [address] Erythrocyte distribution width (RBC) [Ratio] 11.6 % Normal 11.6-14.6 [facility] Comment on above: Performed By: #### L 100.0100 #### [facility] [address] [place], [address] Hematocrit (Bld) [Volume fraction] 40.0 % Normal 37-47 [facility] Comment on above: Performed By: #### L 100.0100 #### [facility] [address] [place], [address] Hemoglobin (Bld) [Mass/Vol] 13.0 g/dL Normal 12.0-15.0 [facility] Comment on above: Performed By: #### L 100.0100 #### [facility] [address] [place], [address] IM GRAN % 0.400 % Normal 0.0-0.9 [facility] Comment on above: Result Comment: IG% - Immature Granulocytes (promyelocytes, myelocytes and metamyelocytes) > 1% indicates that a LEFT SHIFT is Present. Performed By: #### L 100.0100 #### [facility] [address] [place], [address] Lymphocytes (Bld) [#/Vol] 1.85 X10 3/uL Normal 0.83-4.51 [facility] Comment on above: Performed By: #### L 100.0100 #### [facility] [address] [place], [address] Lymphocytes/100 WBC (Bld) 20.5 % Normal 19-41 [facility] Comment on above: Performed By: #### L 100.0100 #### [facility] [address] [place], [address] MCH (RBC) [Entitic mass] 27.3 pg Normal 27.0-32.0 [facility] Comment on above: Performed By: #### L 100.0100 #### [facility] [address] [place], [address] MCHC (RBC) [Mass/Vol] 32.5 g/dL Normal 32-36 [facility] Comment on above: Performed By: #### L 100.0100 #### [facility] [address] [place], [address] MCV (RBC) [Entitic vol] 84.0 fL Normal 81-99 [facility] Comment on above: Performed By: #### L 100.0100 #### [facility] [address] [place], [address] Monocytes/100 WBC (Bld) 4.9 % Normal 0-10 [facility] Comment on above: Performed By: #### L 100.0100 #### [facility] [address] [place], [address] Neutrophils/100 WBC (Bld) 73.3 % High 47-70 [facility] Comment on above: Performed By: #### L 100.0100 #### [facility] [address] [place], [address] NRBC, FLAGGED 0 % Normal 0-5 [facility] Comment on above: Performed By: #### L 100.0100 #### [facility] [address] [place], [address] Platelet mean volume (Bld) [Entitic vol] 10.7 fL Normal 6.2-12.0 [facility] Comment on above: Performed By: #### L 100.0100 #### [facility] [address] [place], [address] Platelets (Bld) [#/Vol] 339 10*3/uL Normal 150-450 [facility] Comment on above: Performed By: #### L 100.0100 #### [facility] [address] [place], [address] RBC (Bld) [#/Vol] 4.76 M/mm3 Normal 4.2-5.4 [facility] Comment on above: Performed By: #### L 100.0100 #### [facility] [address] [place], [address] RDW SD 35.3 fl Normal 35.1-43.9 [facility] Comment on above: Performed By: #### L 100.0100 #### [facility] [address] [place], [address] WBC (Bld) [#/Vol] 9.0 10*3/uL Normal 4.4-11.0 [facility] Comment on above: Performed By: #### L 100.0100 #### [facility] [address] [place], [address] Comprehensive Metabolic Prof [facility] 06-25-2020 Albumin [Mass/Vol] 4.0 g/dL Normal 3.2-5.0 [facility] Comment on above: Performed By: #### L 500.4050 #### [facility] [address] [place], [address] Albumin/Globulin [Mass ratio] 1.1 {ratio} Normal 0.9-2.4 [facility] Comment on above: Performed By: #### L 500.4050 #### [facility] [address] [place], [address] ALK P 69 U/L Normal 45-117 [facility] Comment on above: Performed By: #### L 500.4050 #### [facility] [address] [place], [address] ALT [Catalytic activity/Vol] 17 U/L Normal 13-56 [facility] Comment on above: Performed By: #### L 500.4050 #### [facility] [address] [place], [address] AST [Catalytic activity/Vol] 11 U/L Low 15-37 [facility] Comment on above: Performed By: #### L 500.4050 #### [facility] [address] [place], [address] Bilirubin [Mass/Vol] 0.40 mg/dL Normal 0.20-1.00 [facility] Comment on above: Result Comment: For patients on eltrombopag therapy, use of Dimension Debary TBIL is not recommended. Performed By: #### L 500.4050 #### [facility] [address] [place], [address] Calcium [Mass/Vol] 9.1 mg/dL Normal 8.5-10.1 [facility] Comment on above: Performed By: #### L 500.4050 #### [facility] [address] [place], [address] Chloride [Moles/Vol] 105 mmol/L Normal 98-107 [facility] Comment on above: Performed By: #### L 500.4050 #### [facility] [address] [place], [address] CO2 [Moles/Vol] 30.0 mmol/L Normal 21.0-32.0 [facility] Comment on above: Performed By: #### L 500.4050 #### [facility] [address] [place], [address] Creatinine [Mass/Vol] 0.67 mg/dL Normal 0.55-1.02 [facility] Comment on above: Result Comment: The validity of the calculated GFR AND GFRAA in patients over 70 years has not been determined. Clinical correlation is essential. Performed By: #### L 500.4050 #### [facility] [address] [place], [address] EST GFR - AA 139 mL/min Normal >60 [facility] Comment on above: Result Comment: Afri can Macanese GFR Calc Performed By: #### L 500.4050 #### [facility] [address] [place], [address] GAP 5 Normal 5-15 [facility] Comment on above: Performed By: #### L 500.4050 #### [facility] [address] [place], [address] GFR/1.73 sq M predicted among non-blacks MDRD (S/P/Bld) [Vol rate/Area] 115 mL/min/{1.73_m2} Normal >60 [facility] Comment on above: Result Comment: Non- GFR Calc Performed By: #### L 500.4050 #### [facility] [address] [place], [address] Globulin (S) [Mass/Vol] 3.5 g/dL Normal 2.2-4.2 [facility] Comment on above: Performed By: #### L 500.4050 #### [facility] [address] [place], [address] Glucose [Mass/Vol] 83 mg/dL Normal 74-106 [facility] Comment on above: Result Comment: Frank santos note revised GLUCOSE reference range effective 2017. Performed By: #### L 500.4050 #### [facility] [address] [place], [address] Potassium [Moles/Vol] 3.5 mmol/L Normal 3.5-5.1 [facility] Comment on above: Performed By: #### L 500.4050 #### [facility] [address] [place], [address] Sodium [Moles/Vol] 140 mmol/L Normal 136-145 [facility] Comment on above: Performed By: #### L 500.4050 #### [facility] [address] [place], [address] T PROT 7.5 g/dL Normal 6.4-8.2 [facility] Comment on above: Performed By: #### L 500.4050 #### [facility] [address] [place], [address] Urea nitrogen [Mass/Vol] 11.9 RATIO Normal 10-20 [facility] Comment on above: Performed By: #### L 500.4050 #### [facility] [address] [place], [address] Urea nitrogen [Mass/Vol] 8 mg/dL Normal 7-18 [facility] Comment on above: Performed By: #### L 500.4050 #### [facility] [address] [place], [address] HCG QUALITATIVE, URINEon HCG ( test) Ql (U) Negative [facility] Comment on above: Testing performed at [place], [place] [address] URINALYSIS, MACROon 05-30-20 20 Bilirubin Ql (U) Negative NEGATIVE [facility] Clarity (U) CLEAR CLEAR [facility] Color (U) YELLOW YELLOW [facility] Glucose Test strip (U) [Mass/Vol] Negative NEGATIVE mg/dl [facility] Hemoglobin Ql (U) Negative NEGATIVE [facility] Ketones (U) [Mass/Vol] Negative NEGATIVE mg/dl [facility] Leukocyte esterase Test strip Ql (U) Negative NEGATIVE [facility] Comment on above: Testing performed at [place], [place] [address] Nitrite Ql (U) Negative NEGATIVE [facility] pH (U) 5.5 [pH] [facility] Protein Ql (U) Negative NEGATIVE mg/dl [facility] Specific gravity (U) [Rel density] 1.025 [facility] Urobilinogen (U) [Mass/Vol] 0.2 [facility] URINE HCG QUALon 05-30-2020 Beta HCG ( test) Ql (U) Negative Normal [facility] Comment on above: Result Comment: Test ing performed at [place] [address] Performed By: #### U HCGT, UMAC #### [place] [address] URINE MACROSCOPICon 05-30-20 20 Bilirubin Ql (U) Negative Normal NEGATIVE [facility] Comment on above: Performed By: #### U HCGT, UMAC #### [place] [address] Clarity (U) CLEAR Normal CLEAR [facility] Comment on above: Performed By: #### U HCGT, UMAC #### [place] [address] Color (U) YELLOW Normal YELLOW [facility] Comment on above: Performed By: #### U HCGT, UMAC #### [place] [address] Glucose Ql (U) Negative Normal NEGATIVE [facility] Comment on above: Performed By: #### U HCGT, UMAC #### [place] [address] pH (U) 5.5 [pH] Normal 5.0-7.0 [facility] Comment on above: Performed By: #### U HCGT, UMAC #### [place] [address] Protein (U) [Mass/Vol] Negative Normal NEGATIVE [facility] Comment on above: Performed By: #### U HCGT, UMAC #### [place] [address] URINE HEMOGLOBIN Negative Normal NEGATIVE [facility] Comment on above: Performed By: #### U HCGT, UMAC #### Testing performed at [facility] [address] [place] [address] URINE KETONE Negative Normal NEGATIVE [facility] Comment on above: Performed By: #### U HCGT, UMAC #### Testing performed at [facility] [address] [place] [address] URINE LEUKOTEST Negative Normal NEGATIVE [facility] Comment on above: Result Comment: Test ing performed at [place] [address] Performed By: #### U HCGT, UMAC #### Testing performed at [place] [id number] URINE NITRATES Negative Normal NEGATIVE [facility] Comment on above: Performed By: #### U HCGT, UMAC #### Testing performed at [address] [address] URINE SPEC GRAVITY 1.025 Normal 1.010-1.025 [facility] Comment on above: Performed By: #### U HCGT, UMAC #### Testing performed at [address] [address] Urobilinogen Qn (U) 0.2 {Edna'U}/dL Normal 0.2-1.0 [facility] Comment on above: Performed By: #### U HCGT, UMAC #### Testing performed at [place] [id number] COVID-19, MOLECULARon 2019 SARS-COV-2 RNA (NIHARIKA) Not Detected Normal Not Detected [facility] Comment on above: Result Comment: This test was performed under the FDA's Emergency Use Authorization (EUA). Testing was performed using the Yehuda SARS-CoV-2 assay on the Niharika Yehuda 6800 System. This test has not been approved for use in asymptomatic patients and its performance in this patient population has not been evaluated. Negative results do not rule out the presence of SARS-CoV-2/COVID-19. Fact sheets for this EUA can be found at the following links: For Healthcare Providers: https://www.fda.gov/media/294255/download For Patients: https://www.fda.gov/media/435449/download Performed By: #### L [id number] #### [facility] [place] [address] Homero Kaur M.D. [id number] CBC W/Diff, Automatedon - Absolute Neut 4.6 X10 3/uL Normal 2.0-7.7 [facility] Comment on above: Performed By: #### L 100.0100 #### [facility] [address] [place], [address] Basophils/100 WBC (Bld) 0.4 % Normal 0-1 [facility] Comment on above: Performed By: #### L 100.0100 #### [facility] [address] [place], [address] Eosinophils/100 WBC (Bld) 1.6 % Normal 0-5 [facility] Comment on above: Performed By: #### L 100.0100 #### [facility] [address] [place], [address] Erythrocyte distribution width (RBC) [Ratio] 12.5 % Normal 11.6-14.6 [facility] Comment on above: Performed By: #### L 100.0100 #### [facility] [address] [place], [address] Hematocrit (Bld) [Volume fraction] 40.2 % Normal 37-47 [facility] Comment on above: Performed By: #### L 100.0100 #### [facility] [address] [place], [address] Hemoglobin (Bld) [Mass/Vol] 13.0 g/dL Normal 12.0-15.0 [facility] Comment on above: Performed By: #### L 100.0100 #### [facility] [address] [place], [address] IM GRAN % 0.300 % Normal 0.0-0.9 [facility] Comment on above: Result Comment: IG% - Immature Granulocytes (promyelocytes, myelocytes and metamyelocytes) > 1% indicates that a LEFT SHIFT is Present. Performed By: #### L 100.0100 #### [facility] [address] [place], [address] Lymphocytes (Bld) [#/Vol] 1.77 X10 3/uL Normal 0.83-4.51 [facility] Comment on above: Performed By: #### L 100.0100 #### [facility] [address] [place], [address] Lymphocytes/100 WBC (Bld) 25.4 % Normal 19-41 [facility] Comment on above: Performed By: #### L 100.0100 #### [facility] [address] [place], [address] MCH (RBC) [Entitic mass] 28.1 pg Normal 27.0-32.0 [facility] Comment on above: Performed By: #### L 100.0100 #### [facility] [address] [place], [address] MCHC (RBC) [Mass/Vol] 32.3 g/dL Normal 32-36 [facility] Comment on above: Performed By: #### L 100.0100 #### [facility] [address] [place], [address] MCV (RBC) [Entitic vol] 86.8 fL Normal 81-99 [facility] Comment on above: Performed By: #### L 100.0100 #### [facility] [address] [place], [address] Monocytes/100 WBC (Bld) 6.6 % Normal 0-10 [facility] Comment on above: Performed By: #### L 100.0100 #### [facility] [address] [place], [address] Neutrophils/100 WBC (Bld) 65.7 % Normal 47-70 [facility] Comment on above: Performed By: #### L 100.0100 #### [facility] [address] [place], [address] NRBC, FLAGGED 0 % Normal 0-5 [facility] Comment on above: Performed By: #### L 100.0100 #### [facility] [address] [place], [address] Platelet mean volume (Bld) [Entitic vol] 10.7 fL Normal 6.2-12.0 [facility] Comment on above: Performed By: #### L 100.0100 #### [facility] [address] [place], [address] Platelets (Bld) [#/Vol] 288 10*3/uL Normal 150-450 [facility] Comment on above: Performed By: #### L 100.0100 #### [facility] [address] [place], [address] RBC (Bld) [#/Vol] 4.63 M/mm3 Normal 4.2-5.4 [facility] Comment on above: Performed By: #### L 100.0100 #### [facility] [address] [place], [address] RDW SD 38.6 fl Normal 35.1-43.9 [facility] Comment on above: Performed By: #### L 100.0100 #### [facility] [address] [place], [address] WBC (Bld) [#/Vol] 7.0 10*3/uL Normal 4.4-11.0 [facility] Comment on above: Performed By: #### L 100.0100 #### [facility] [address] [place], [address] [facility] Albumin [Mass/Vol] 3.7 g/dL Normal 3.2-5.0 [facility] Comment on above: Performed By: #### L 500.4050 #### [facility] [address] [place], [address] Albumin/Globulin [Mass ratio] 1.1 {ratio} Normal 0.9-2.4 [facility] Comment on above: Performed By: #### L 500.4050 #### [facility] [address] [place], [address] ALK P 60 U/L Normal 45-117 [facility] Comment on above: Performed By: #### L 500.4050 #### [facility] [address] [place], [address] ALT [Catalytic activity/Vol] 21 U/L Normal 13-56 [facility] Comment on above: Performed By: #### L 500.4050 #### [facility] [address] [place], [address] AST [Catalytic activity/Vol] 12 U/L Low 15-37 [facility] Comment on above: Performed By: #### L 500.4050 #### [facility] [address] [place], [address] Bilirubin [Mass/Vol] 0.40 mg/dL Normal 0.20-1.00 [facility] Comment on above: Result Comment: For patients on eltrombopag therapy, use of Dimension Debary TBIL is not recommended. Performed By: #### L 500.4050 #### [facility] [address] [place], [address] Calcium [Mass/Vol] 8.8 mg/dL Normal 8.5-10.1 [facility] Comment on above: Performed By: #### L 500.4050 #### [facility] [address] [place], [address] Chloride [Moles/Vol] 105 mmol/L Normal 98-107 [facility] Comment on above: Performed By: #### L 500.4050 #### [facility] [address] [place], [address] CO2 [Moles/Vol] 28.0 mmol/L Normal 21.0-32.0 [facility] Comment on above: Performed By: #### L 500.4050 #### [facility] [address] [place], [address] Creatinine [Mass/Vol] 0.74 mg/dL Normal 0.55-1.02 [facility] Comment on above: Result Comment: The validity of the calculated GFR AND GFRAA in patients over 70 years has not been determined. Clinical correlation is essential. Performed By: #### L 500.4050 #### [facility] [address] [place], [address] EST GFR - AA 125 mL/min Normal >60 [facility] Comment on above: Result Comment: Afri can Macanese GFR Calc Performed By: #### L 500.4050 #### [facility] [address] [place], [address] GAP 6 Normal 5-15 [facility] Comment on above: Performed By: #### L 500.4050 #### [facility] [address] [place], [address] GFR/1.73 sq M predicted among non-blacks MDRD (S/P/Bld) [Vol rate/Area] 103 mL/min/{1.73_m2} Normal >60 [facility] Comment on above: Result Comment: Non- GFR Calc Performed By: #### L 500.4050 #### [facility] [address] [place], [address] Globulin (S) [Mass/Vol] 3.4 g/dL Normal 2.2-4.2 [facility] Comment on above: Performed By: #### L 500.4050 #### [facility] [address] [place], [address] Glucose [Mass/Vol] 76 mg/dL Normal 74-106 [facility] Comment on above: Result Comment: Frank santos note revised GLUCOSE reference range effective 2017. Performed By: #### L 500.4050 #### [facility] [address] [place], [address] Potassium [Moles/Vol] 3.6 mmol/L Normal 3.5-5.1 [facility] Comment on above: Performed By: #### L 500.4050 #### [facility] [address] [place], [address] Sodium [Moles/Vol] 139 mmol/L Normal 136-145 [facility] Comment on above: Performed By: #### L 500.4050 #### [facility] [address] [place], [address] T PROT 7.1 g/dL Normal 6.4-8.2 [facility] Comment on above: Performed By: #### L 500.4050 #### [facility] [address] [place], [address] Urea nitrogen [Mass/Vol] 9 mg/dL Normal 7-18 [facility] Comment on above: Performed By: #### L 500.4050 #### [facility] [address] [place], [address] Urea nitrogen [Mass/Vol] 12.2 RATIO Normal 10-20 [facility] Comment on above: Performed By: #### L 500.4050 #### [facility] [address] [place], [address] CBC W/Diff, Automatedon 04-0 -2019 Absolute Neut 5.3 X10 3/uL Normal 2.0-7.7 [facility] Comment on above: Performed By: #### L 100.0100 #### [facility] [address] [place], [address] Basophils/100 WBC (Bld) 0.3 % Normal 0-1 [facility] Comment on above: Performed By: #### L 100.0100 #### [facility] [address] [place], [address] Eosinophils/100 WBC (Bld) 1.0 % Normal 0-5 [facility] Comment on above: Performed By: #### L 100.0100 #### [facility] [address] [place], [address] Erythrocyte distribution width (RBC) [Ratio] 12.3 % Normal 11.6-14.6 [facility] Comment on above: Performed By: #### L 100.0100 #### [facility] [address] [place], [address] Hematocrit (Bld) [Volume fraction] 39.4 % Normal 37-47 [facility] Comment on above: Performed By: #### L 100.0100 #### [facility] [address] [place], [address] Hemoglobin (Bld) [Mass/Vol] 12.9 g/dL Normal 12.0-15.0 [facility] Comment on above: Performed By: #### L 100.0100 #### [facility] [address] [place], [address] IM GRAN % 1.000 % High 0.0-0.9 [facility] Comment on above: Result Comment: IG% - Immature Granulocytes (promyelocytes, myelocytes and metamyelocytes) > 1% indicates that a LEFT SHIFT is Present. Performed By: #### L 100.0100 #### [facility] [address] [place], [address] Lymphocytes (Bld) [#/Vol] 1.86 X10 3/uL Normal 0.83-4.51 [facility] Comment on above: Performed By: #### L 100.0100 #### [facility] [address] [place], [address] Lymphocytes/100 WBC (Bld) 23.9 % Normal 19-41 [facility] Comment on above: Performed By: #### L 100.0100 #### [facility] [address] [place], [address] MCH (RBC) [Entitic mass] 28.0 pg Normal 27.0-32.0 [facility] Comment on above: Performed By: #### L 100.0100 #### [facility] [address] [place], [address] MCHC (RBC) [Mass/Vol] 32.7 g/dL Normal 32-36 [facility] Comment on above: Performed By: #### L 100.0100 #### [facility] [address] [place], [address] MCV (RBC) [Entitic vol] 85.5 fL Normal 81-99 [facility] Comment on above: Performed By: #### L 100.0100 #### [facility] [address] [place], [address] Monocytes/100 WBC (Bld) 6.0 % Normal 0-10 [facility] Comment on above: Performed By: #### L 100.0100 #### [facility] [address] [place], [address] Neutrophils/100 WBC (Bld) 67.8 % Normal 47-70 [facility] Comment on above: Performed By: #### L 100.0100 #### [facility] [address] [place], [address] NRBC, FLAGGED 0 % Normal 0-5 [facility] Comment on above: Performed By: #### L 100.0100 #### [facility] [address] [place], [address] Platelet mean volume (Bld) [Entitic vol] 10.4 fL Normal 6.2-12.0 [facility] Comment on above: Performed By: #### L 100.0100 #### [facility] [address] [place], [address] Platelets (Bld) [#/Vol] 264 10*3/uL Normal 150-450 [facility] Comment on above: Performed By: #### L 100.0100 #### [facility] [address] [place], [address] RBC (Bld) [#/Vol] 4.61 M/mm3 Normal 4.2-5.4 [facility] Comment on above: Performed By: #### L 100.0100 #### [facility] [address] [place], [address] RDW SD 37.8 fl Normal 35.1-43.9 [facility] Comment on above: Performed By: #### L 100.0100 #### [facility] [address] [place], [address] WBC (Bld) [#/Vol] 7.8 10*3/uL Normal 4.4-11.0 [facility] Comment on above: Performed By: #### L 100.0100 #### [facility] [address] [place], [address] Comprehensive Metabolic Prof ilon 12-14-2019 Albumin [Mass/Vol] 3.9 g/dL Normal 3.2-5.0 [facility] Comment on above: Performed By: #### L 500.4050 #### [facility] [address] [place], [address] Albumin/Globulin [Mass ratio] 1.2 {ratio} Normal 0.9-2.4 [facility] Comment on above: Performed By: #### L 500.4050 #### [facility] [address] [place], [address] ALK P 65 U/L Normal 45-117 [facility] Comment on above: Performed By: #### L 500.4050 #### [facility] [address] [place], [address] ALT [Catalytic activity/Vol] 20 U/L Normal 13-56 [facility] Comment on above: Performed By: #### L 500.4050 #### [facility] [address] [place], [address] AST [Catalytic activity/Vol] 11 U/L Low 15-37 [facility] Comment on above: Performed By: #### L 500.4050 #### [facility] [address] [place], [address] Bilirubin [Mass/Vol] 0.40 mg/dL Normal 0.20-1.00 [facility] Comment on above: Result Comment: For patients on eltrombopag therapy, use of Dimension Debary TBIL is not recommended. Performed By: #### L 500.4050 #### [facility] [address] [place], [address] Calcium [Mass/Vol] 8.9 mg/dL Normal 8.5-10.1 [facility] Comment on above: Performed By: #### L 500.4050 #### [facility] [address] [place], [address] Chloride [Moles/Vol] 105 mmol/L Normal 98-107 [facility] Comment on above: Performed By: #### L 500.4050 #### [facility] [address] [place], [address] CO2 [Moles/Vol] 30.0 mmol/L Normal 21.0-32.0 [facility] Comment on above: Performed By: #### L 500.4050 #### [facility] [address] [place], [address] Creatinine [Mass/Vol] 0.69 mg/dL Normal 0.55-1.02 [facility] Comment on above: Result Comment: The validity of the calculated GFR AND GFRAA in patients over 70 years has not been determined. Clinical correlation is essential. Performed By: #### L 500.4050 #### [facility] [address] [place], [address] EST GFR - AA 135 mL/min Normal >60 [facility] Comment on above: Result Comment: Afri can Macanese GFR Calc Performed By: #### L 500.4050 #### [facility] [address] [place], [address] GAP 4 Low 5-15 [facility] Comment on above: Performed By: #### L 500.4050 #### [facility] [address] [place], [address] GFR/1.73 sq M predicted among non-blacks MDRD (S/P/Bld) [Vol rate/Area] 112 mL/min/{1.73_m2} Normal >60 [facility] Comment on above: Result Comment: Non- GFR Calc Performed By: #### L 500.4050 #### [facility] [address] [place], [address] Globulin (S) [Mass/Vol] 3.2 g/dL Normal 2.2-4.2 [facility] Comment on above: Performed By: #### L 500.4050 #### [facility] [address] [place], [address] Glucose [Mass/Vol] 81 mg/dL Normal 74-106 [facility] Comment on above: Result Comment: Frank santos note revised GLUCOSE reference range effective 2017. Performed By: #### L 500.4050 #### [facility] [address] [place], [address] Potassium [Moles/Vol] 3.9 mmol/L Normal 3.5-5.1 [facility] Comment on above: Performed By: #### L 500.4050 #### [facility] [address] [place], [address] Sodium [Moles/Vol] 139 mmol/L Normal 136-145 [facility] Comment on above: Performed By: #### L 500.4050 #### [facility] [address] [place], [address] T PROT 7.1 g/dL Normal 6.4-8.2 [facility] Comment on above: Performed By: #### L 500.4050 #### [facility] [address] [place], [address] Urea nitrogen [Mass/Vol] 14.5 RATIO Normal 10-20 [facility] Comment on above: Performed By: #### L 500.4050 #### [facility] [address] [place], [address] Urea nitrogen [Mass/Vol] 10 mg/dL Normal 7-18 [facility] Comment on above: Performed By: #### L 500.4050 #### [facility] [address] [place], [address] CBC W/Diff, Automatedon 09-06 Absolute Neut 5.0 X10 3/uL Normal 2.0-7.7 [facility] Comment on above: Performed By: #### L 100.0100 #### [facility] [address] [place], [address] Basophils/100 WBC (Bld) 0.4 % Normal 0-1 [facility] Comment on above: Performed By: #### L 100.0100 #### [facility] [address] [place], [address] Eosinophils/100 WBC (Bld) 1.1 % Normal 0-5 [facility] Comment on above: Performed By: #### L 100.0100 #### [facility] [address] [place], [address] Erythrocyte distribution width (RBC) [Ratio] 12.2 % Normal 11.6-14.6 [facility] Comment on above: Performed By: #### L 100.0100 #### [facility] [address] [place], [address] Hematocrit (Bld) [Volume fraction] 39.5 % Normal 37-47 [facility] Comment on above: Performed By: #### L 100.0100 #### [facility] [address] [place], [address] Hemoglobin (Bld) [Mass/Vol] 13.0 g/dL Normal 12.0-15.0 [facility] Comment on above: Performed By: #### L 100.0100 #### [facility] [address] [place], [address] IM GRAN % 0.300 % Normal 0.0-0.9 [facility] Comment on above: Result Comment: IG% - Immature Granulocytes (promyelocytes, myelocytes and metamyelocytes) > 1% indicates that a LEFT SHIFT is Present. Performed By: #### L 100.0100 #### [facility] [address] [place], [address] Lymphocytes (Bld) [#/Vol] 1.95 X10 3/uL Normal 0.83-4.51 [facility] Comment on above: Performed By: #### L 100.0100 #### [facility] [address] [place], [address] Lymphocytes/100 WBC (Bld) 26.0 % Normal 19-41 [facility] Comment on above: Performed By: #### L 100.0100 #### [facility] [address] [place], [address] MCH (RBC) [Entitic mass] 27.8 pg Normal 27.0-32.0 [facility] Comment on above: Performed By: #### L 100.0100 #### [facility] [address] [place], [address] MCHC (RBC) [Mass/Vol] 32.9 g/dL Normal 32-36 [facility] Comment on above: Performed By: #### L 100.0100 #### [facility] [address] [place], [address] MCV (RBC) [Entitic vol] 84.4 fL Normal 81-99 [facility] Comment on above: Performed By: #### L 100.0100 #### [facility] [address] [place], [address] Monocytes/100 WBC (Bld) 6.1 % Normal 0-10 [facility] Comment on above: Performed By: #### L 100.0100 #### [facility] [address] [place], [address] Neutrophils/100 WBC (Bld) 66.1 % Normal 47-70 [facility] Comment on above: Performed By: #### L 100.0100 #### [facility] [address] [place], [address] NRBC, FLAGGED 0 % Normal 0-5 [facility] Comment on above: Performed By: #### L 100.0100 #### [facility] [address] [place], [address] Platelet mean volume (Bld) [Entitic vol] 10.7 fL Normal 6.2-12.0 [facility] Comment on above: Performed By: #### L 100.0100 #### [facility] [address] [place], [address] Platelets (Bld) [#/Vol] 302 10*3/uL Normal 150-450 [facility] Comment on above: Performed By: #### L 100.0100 #### [facility] [address] [place], [address] RBC (Bld) [#/Vol] 4.68 M/mm3 Normal 4.2-5.4 [facility] Comment on above: Performed By: #### L 100.0100 #### [facility] [address] [place], [address] RDW SD 36.5 fl Normal 35.1-43.9 [facility] Comment on above: Performed By: #### L 100.0100 #### [facility] [address] [place], [address] WBC (Bld) [#/Vol] 7.5 10*3/uL Normal 4.4-11.0 [facility] Comment on above: Performed By: #### L 100.0100 #### [facility] [address] [place], [address] Comprehensive Metabolic [facility] 09-20-2019 Albumin [Mass/Vol] 3.9 g/dL Normal 3.2-5.0 [facility] Comment on above: Performed By: #### L 500.4050 #### [facility] [address] [place], [address] Albumin/Globulin [Mass ratio] 1.2 {ratio} Normal 0.9-2.4 [facility] Comment on above: Performed By: #### L 500.4050 #### [facility] [address] [place], [address] ALK P 66 U/L Normal 45-117 [facility] Comment on above: Performed By: #### L 500.4050 #### [facility] [address] [place], [address] ALT [Catalytic activity/Vol] 18 U/L Normal 13-56 [facility] Comment on above: Performed By: #### L 500.4050 #### [facility] [address] [place], [address] AST [Catalytic activity/Vol] 10 U/L Low 15-37 [facility] Comment on above: Performed By: #### L 500.4050 #### [facility] [address] [place], [address] Bilirubin [Mass/Vol] 0.40 mg/dL Normal 0.20-1.00 [facility] Comment on above: Performed By: #### L 500.4050 #### [facility] [address] [place], [address] Calcium [Mass/Vol] 9.4 mg/dL Normal 8.5-10.1 [facility] Comment on above: Performed By: #### L 500.4050 #### [facility] [address] [place], [address] Chloride [Moles/Vol] 108 mmol/L High 98-107 [facility] Comment on above: Performed By: #### L 500.4050 #### [facility] [address] [place], [address] CO2 [Moles/Vol] 28.0 mmol/L Normal 21.0-32.0 [facility] Comment on above: Performed By: #### L 500.4050 #### [facility] [address] [place], [address] Creatinine [Mass/Vol] 0.85 mg/dL Normal 0.55-1.02 [facility] Comment on above: Result Comment: The validity of the calculated GFR AND GFRAA in patients over 70 years has not been determined. Clinical correlation is essential. Performed By: #### L 500.4050 #### [facility] [address] [place], [address] EST GFR - AA 106 mL/min Normal >60 [facility] Comment on above: Result Comment: Afri can Macanese GFR Calc Performed By: #### L 500.4050 #### [facility] [address] [place], [address] GAP 3 Low 5-15 [facility] Comment on above: Performed By: #### L 500.4050 #### [facility] [address] [place], [address] GFR/1.73 sq M predicted among non-blacks MDRD (S/P/Bld) [Vol rate/Area] 88 mL/min/{1.73_m2} Normal >60 [facility] Comment on above: Result Comment: Non- GFR Calc Performed By: #### L 500.4050 #### [facility] [address] [place], [address] Globulin (S) [Mass/Vol] 3.2 g/dL Normal 2.2-4.2 [facility] Comment on above: Performed By: #### L 500.4050 #### [facility] [address] [place], [address] Glucose [Mass/Vol] 64 mg/dL Low 74-106 [facility] Comment on above: Result Comment: Frank santos note revised GLUCOSE reference range effective 2017. Performed By: #### L 500.4050 #### [facility] [address] [place], [address] Potassium [Moles/Vol] 4.2 mmol/L Normal 3.5-5.1 [facility] Comment on above: Performed By: #### L 500.4050 #### [facility] [address] [place], [address] Sodium [Moles/Vol] 139 mmol/L Normal 136-145 [facility] Comment on above: Performed By: #### L 500.4050 #### [facility] [address] [place], [address] T PROT 7.1 g/dL Normal 6.4-8.2 [facility] Comment on above: Performed By: #### L 500.4050 #### [facility] [address] [place], [address] Urea nitrogen [Mass/Vol] 11 mg/dL Normal 7-18 [facility] Comment on above: Performed By: #### L 500.4050 #### [facility] [address] [place], [address] Urea nitrogen [Mass/Vol] 12.9 RATIO Normal 10-20 [facility] Comment on above: Performed By: #### L 500.4050 #### [facility] [address] [place], [address] Lab Miscellaneouson 02-01-20 19 Status See Ref Lab Report Normal [facility] Comment on above: Order Comment: [place] [id number] Performed By: #### 1 [id number] #### MIYA Send Outs Subsection [facility] [place] [address] Status See Ref Lab Report Normal [facility] Comment on above: Order Comment: Anti CCP [id number] Performed By: #### 1 [id number] #### MIYA Send Outs Subsection [facility] [place] [address] RF Quanton 01-28-2019 RA Latex Turbid <10.0 Normal 0.0-13.9 [facility] Comment on above: Result Comment: Perf ormed At: [facility] [address] [id number] Reanna Medley PhD Ph:[phone] Performed By: #### 1 [id number] #### MIYA Send Outs Subsection [address] [place] [address] Auto Diffon 01-27-2019 Basophils (Bld) [#/Vol] 0.0 E3/mcL Normal 0.0-0.2 [facility] Comment on above: Order Comment: Order Added by Discern Expert. Performed By: #### 2 [id number] #### MIYA [employer] [address] [place] [address] Basophils/100 WBC (Bld) 0.5 % Normal 0.0-2.0 [facility] Comment on above: Order Comment: Order Added by Discern Expert. Performed By: #### 2 [id number] #### MIYA [employer] [address] [place] [address] Eos Absolute 0.1 E3/mcL Normal 0.0-0.7 [facility] Comment on above: Order Comment: Order Added by Discern Expert. Performed By: #### 2 [id number] #### MI[facility] [employer] [address] [place] [address] Eosinophils/100 WBC (Bld) 1.8 % Normal 0.0-11.0 [facility] Comment on above: Order Comment: Order Added by Discern Expert. Performed By: #### 2 [id number] #### MIYA [employer] [address] [place] [address] 127[address] Lymphocytes (Bld) [#/Vol] 1.5 E3/mcL Normal 1.2-3.4 [facility] Comment on above: Order Comment: Order Added by Discern Expert. Performed By: #### 2 [id number] #### MIYA RemHemo [address] [place] [address]40 Lymphocytes/100 WBC (Bld) 32.6 % Normal 20.0-55.0 [facility] Comment on above: Order Comment: Order Added by Discern Expert. Performed By: #### 2 [id number] #### MIYA RemHemo [address] [place] [address] [place]o Absolute 0.3 E3/mcL Normal 0.0-0.7 [facility] Comment on above: Order Comment: Order Added by Discern Expert. Performed By: #### 2 [id number] #### MIYA SalcedoHemo [address] [place] [address] Monocytes/100 WBC (Bld) 7.2 % Normal 0.0-10.0 [facility] Comment on above: Order Comment: Order Added by Discern Expert. Performed By: #### 2 [id number] #### MIYA SalcedoHemo [address] [place] [address] Neutro Absolute 2.7 E3/mcL Normal 1.4-6.5 [facility] Comment on above: Order Comment: Order Added by Discern Expert. Performed By: #### 2 [id number] #### MIYA RemHemo [address] [place] [address] Neutro Auto 57.9 % Normal 37.0-75.0 [facility] Comment on above: Order Comment: Order Added by Discern Expert. Performed By: #### 2 [id number] #### MIYA SalcedoHemo [facility] [place] [address] CBC w/ Auto Diffon 9 Erythrocyte distribution width (RBC) [Ratio] 12.5 % Normal 11.5-14.5 [facility] Comment on above: Performed By: #### 2 [id number] #### MIYA SalcedoHemo [address] [place] [address] Hematocrit (Bld) [Volume fraction] 38.8 % Normal 36.0-48.0 [facility] Comment on above: Performed By: #### 2 [id number] #### MIYA SalcedoHemo [address] [place] [address] Hemoglobin (Bld) [Mass/Vol] 13.3 g/dL Normal 12.0-16.0 [facility] Comment on above: Performed By: #### 2 [id number] #### MIYA SalcedoHemo [address] [place] [address] MCH (RBC) [Entitic mass] 27.7 pg Normal 27.0-31.0 [facility] Comment on above: Performed By: #### 2 695123 #### MIYA SalcedoHemo [address] [place] [address] MCHC (RBC) [Mass/Vol] 34.3 g/dL Normal 33.0-37.0 [facility] Comment on above: Performed By: #### 2 [id number] #### MIYA SalcedoHemo [facility] [place] [address] MCV (RBC) [Entitic vol] 80.7 fL Normal 78.0-100.0 [facility] Comment on above: Performed By: #### 2 [id number] #### MIYA DenisseHemo [facility] [place] [address] Platelet mean volume (Bld) [Entitic vol] 8.5 fL Normal 7.4-11.0 [facility] Comment on above: Performed By: #### 2 [id number] #### MIYA DenisseHemo [facility] [place] [address] Platelets (Bld) [#/Vol] 303 E3/mcL Normal 130-400 [facility] Comment on above: Performed By: #### 2 [id number] #### MIYA RemHemo [address] [place] [address] 35761 RBC (Bld) [#/Vol] 4.80 E6/mcL Normal 3.90-5.40 [facility] Comment on above: Performed By: #### 2 [id number] #### MIYA DenisseHemo [address] [place] [address] 24339 WBC (Bld) [#/Vol] 4.6 E3/mcL Normal 3.6-11.0 [facility] Comment on above: Performed By: #### 2 658436 #### MIYA RemHemo [address] [place] [address] CMPon 01-27-2019 Albumin [Mass/Vol] 4.1 g/dL Normal 3.4-5.0 [facility] Comment on above: Performed By: #### 2 [id number] #### MIYA [employer] [address] [place] [address]249 Albumin/Globulin [Mass ratio] 1.4 {ratio} Normal 1.1-1.9 [facility] Comment on above: Performed By: #### 2 [id number] #### MIYA [employer] [address] [place] [address] 10092 Alk Phos 81 Int._Unit/L Normal 33-110 [facility] Comment on above: Performed By: #### 2 [id number] #### MIYA [employer] [address] [place] [address] 34037 ALT [Catalytic activity/Vol] 10 Int._Unit/L Normal 7-45 [facility] Comment on above: Performed By: #### 2 [id number] #### MIYA [employer] [address] [place] [address] Anion gap [Moles/Vol] 9 mmol/L Low 10-20 [facility] Comment on above: Performed By: #### 2 [id number] #### [facility] [employer] [address] [place] [address] 24396 AST [Catalytic activity/Vol] 13 Int._Unit/L Normal 9-39 [facility] Comment on above: Performed By: #### 2 [id number] #### [facility] [employer] [address] [place] [address]407 Bili Total 0.36 mg/dL Normal 0.00-1.20 [facility] Comment on above: Performed By: #### 2 [id number] #### [facility] [employer] [address] [place] [address] 37062 Calcium [Mass/Vol] 9.6 mg/dL Normal 8.6-10.3 [facility] Comment on above: Performed By: #### 2 845537 #### [facility] [employer] [address] [place] [address] 35741 Chloride [Moles/Vol] 106 mmol/L Normal 98-107 [facility] Comment on above: Performed By: #### 2 153737 #### MIYA [employer] [address] [place] [address] 36922 CO2 [Moles/Vol] 29.0 mmol/L Normal 21.0-32.0 [facility] Comment on above: Performed By: #### 2 837675 #### MIYA [employer] [address] [place] [address] 13698 Creatinine [Mass/Vol] 0.7 mg/dL Normal 0.5-1.1 [facility] Comment on above: Performed By: #### 2 144031 #### MIYA [employer] [address] [place] [address] 88718 Globulin (S) [Mass/Vol] 3.0 g/dL Normal 2.0-4.0 [facility] Comment on above: Performed By: #### 2 036142 #### MIYA [employer] [address] [place] [address] 98808 Glucose [Mass/Vol] 95 mg/dL Normal 70-99 [facility] Comment on above: Performed By: #### 2 605383 #### MIYA [employer] [address] [place] [address] 64864 Potassium [Moles/Vol] 4.2 mmol/L Normal 3.5-5.3 [facility] Comment on above: Performed By: #### 2 [id number] #### MIYA [employer] [address] [place] [address] 00677 Protein [Mass/Vol] 7.0 g/dL Normal 6.4-8.2 [facility] Comment on above: Performed By: #### 2 639784 #### MIYA [employer] [address] [place] [address] 07122 Sodium [Moles/Vol] 140 mmol/L Normal 136-145 [facility] Comment on above: Performed By: #### 2 769265 #### MIYA [employer] [address] [place] [address] 42091 Urea nitrogen [Mass/Vol] 13 mg/dL Normal 6-23 [facility] Comment on above: Performed By: #### 2 207491 #### MIYA [employer] [address] [place] [address] 66107 Urea nitrogen/Creatinine [Mass ratio] 18.6 ratio Normal 5.4-30.0 [facility] Comment on above: Performed By: #### 2 [id number] #### MIYA [employer] [address] [place] [address] 69283 CRPon 01-27-2019 CRP [Mass/Vol] 0.36 mg/dL Normal 0.00-1.00 [facility] Comment on above: Performed By: #### 2 [id number] #### MIYA [employer] [address] [place] [address] 51599 Lab Miscellaneouson 01-28-20 19 Test Name [id number] Normal [facility] Comment on above: Order Comment: [place] [id number] Performed By: #### 1 [id number] #### MIYA [employer] Outs Subsection [address] [place] [address] Test Name [id number] [facility] Comment on above: Order Comment: Anti CCP [id number] Performed By: #### 1 [id number] #### MIYA [employer] [address] [place] [address] Sed Rate Automatedon 019 Sed Rate Automated 9 mm/hr [facility] Comment on above: Result Comment: AGE- SPECIFIC REFERENCE RANGES FOR SEDIMENTATION RATE AUTOMATED REFERENCE RANGE - MM/HR AGE MEN WOMEN 0-2 0-2 - PUBERTY 3-13 3-13 PUBERTY - 50 YRS 0-15 0-20 > 50 YRS 0-20 0-30 Performed By: #### 1 [id number] #### MIYA Hematology Manual Subsection [facility] [place] [id number] XR Spine Cervical 2 or 3 Vie wson 01-27-2019 XR Spine Cervical 2 or 3 Views Exam Date/Time: 01/27/2019 10:54 EDT Reason for Exam: Neck Pain Report STUDY: XR Spine Cervical 2 or 3 Views; 01/27/2019 10:54 am INDICATION: Neck Pain. COMPARISON: None. ACCESSION NUMBER(S): [id number] ORDERING CLINICIAN: Bj Leon TECHNIQUE: 3 views of the cervical spine including AP, lateral and open-mouth odontoid views were obtained. FINDINGS: There is no evidence of acute fracture identified. The vertebral bodies are well aligned without evidence of subluxation. No prevertebral soft tissue swelling is present. The disc spaces and posterior facet joints are well preserved throughout without significant degenerative changes. IMPRESSION: 1. No evidence of acute fracture. FINAL REPORT Dictated: 01/27/2019 1:03 pm Yanick Adams MD Signed (Electronic Signature): 01/27/2019 1:03 pm Signed by: Yanick Adams MD Technologist: HLNahun [facility] eGFRon 01-27-2019 GFR/1.73 sq M predicted among non-blacks MDRD (S/P/Bld) [Vol rate/Area] mL/min/{1.73_m2} [facility] Comment on above: Order Comment: Order added by Discern Expert. Performed By: #### 1 [id number] #### MIYA [employer] [facility] [place] [id number] Vital Signs Date Time Vital Sign Value Performing Clinician Facility 08-03-2023 09:35-0500 Body height 165.1 cm Monica Tulio Other [facility] Other 08-03-2023 09:35-0500 Body mass index (BMI) [Ratio] 26.39 kg/m2 Monica Antunez Other [facility] Other 08-03-2023 09:35-0500 Body temperature 99.1 [degF] Monica Antunez Other [facility] Other 08-03-2023 09:35-0500 Body weight 71.94 kg Monica Antunez Other [facility] Other 08-03-2023 09:35-0500 Diastolic blood pressure 72 mm[Hg] Monica Antunez Other [facility] Other 08-03-2023 09:35-0500 Respiratory rate 18 /min Monica Antunez Other [facility] Other 08-03-2023 09:35-0500 SaO2% (BldA) [Mass fraction] 99 % Monica Antunez Other [facility] Other 08-03-2023 09:35-0500 Systolic blood pressure 111 mm[Hg] Monica Antunez Other [facility] Other 05-09-2023 11:00-0400 Body height 165.1 cm Lisa Carpio Other [facility] Other 05-09-2023 11:00-0400 Body mass index (BMI) [Ratio] 25.29 kg/m2 Lisa Carpio Other [facility] Other 05-09-2023 11:00-0400 Body temperature 98 [degF] Lisa Carpio Other [facility] Other 05-09-2023 11:00-0400 Body weight 68.95 kg Lisa Carpio Other [facility] Other 05-09-2023 11:00-0400 Diastolic blood pressure 64 mm[Hg] Lisa Jansenmond Other [facility] Other 05-09-2023 11:00-0400 Respiratory rate 18 /min Lisa Jansenmond Other [facility] Other 05-09-2023 11:00-0400 SaO2% (BldA) [Mass fraction] 96 % Lisa Carpio Other [facility] Other 05-09-2023 11:00-0400 Systolic blood pressure 98 mm[Hg] Lisa Carpio Other [facility] Other 05-30-2020 09:15-0400 BP Diastolic 68 mm[Hg] GLG Sys tem 05-30-2020 09:15-0400 BP Systolic 102 mm[Hg] [facility] 05-30-2020 09:15-0400 Pulse (Heart Rate) 88 /min GLG [facility] 05-30-2020 09:15-0400 Pulse Oximetry 99 % [facility] tem 05-30-2020 09:15-0400 Respiratory Rate 16 /min N[facility]az 05-30-2020 08:14-0400 Body Temperature 97.39 [degF] [facility] 05-30-2020 06:27-0400 BMI (Body Mass Index) 21.63 kg/m2 [facility] 05-30-2020 06:27-0400 Body weight 58.97 kg [facility] 05-30-2020 06:27-0400 Height 165.1 cm [facility] Encounters Encounter Date Encounter Type Care Provider Facility Start: 08-03-2023 End: 08-03-2023 ambulatory Monica Antunez Other [facility] Other Start: 08-03-2023 Office outpatient vi sit 15 minutes Monica Antunez [facility] Start: [facility] Start: 05-31-2023 ambulatory HAIR SONG [facility] Start: 05-09-2023 End: 05-09-2023 ambulatory Lisa Carpio Other [place] [facility] Other Start: 05-09-2023 Office outpatient ne w 20 minutes Lisa Carpio [facility] Start: 03-22-2023 End: 03-22-2023 ambulatory [facility] Start: 01-22-2023 End: 01-23-2023 ambulatory LISA MCCARTHY Facility:[facility] Start: 04-12-2022 End: 04-12-[address] BRENDAN TAYLOR . Facility:[facility] Start: 05-30-2020 End: 05-30-2020 Subsequent hospital visit by physician Van Pinedo Work Phone: [employer] [facility] Comment on above: HSIL (high grade squ amous intraepithelial lesion) on Pap smear of cervix Start: 05-26-2020 End: 05-26-2020 Patient encounter procedure VAN PNIEDO [facility] Start: 05-10-2020 End: 05-10-2020 Patient encounter procedure VAN RODRIGUEZN [facility] Procedures Date Procedure Procedure Detail Performing Clinician Start: 05-30-2020 Choriogonadotropin ( test) [Presence] in Urine Van Pinedo Work Phone: Start: 05-30-2020 Urinalysis, reagent strip without microscopy Van Pinedo Work Phone: Plan of Treatment Date Care Activity Detail Author Start: 05-07-2020 Influenza vaccination INFLUENZA VACC INE (#1) [facility] Start: 2017 Screening for malign ant neoplasm of cervix CERVICAL CANCER SCREENING DISCUSSION [facility] Start: 2015 Third diphtheria, te tanus and acellular pertussis (DTaP) vaccination TDAP (ADULT) [facility] Start: 2014 Tetanus vaccination TETANUS [facility] Start: 2012 Screening for Chlamy makenna trachomatis CHLAMYDIA SCREEN [facility] Start: 2009 HIV screening HIV SCREENING DISCUSSI ON [facility] Start: 2007 Vaccination for twila n papillomavirus HPV VACCINE ADOL (1 - 2-dose series) [facility] Start: 1996 GONORRHEA SCREEN GONORRHEA SCREEN [facility] SURGICAL PATHOLOGY REQUEST SURGICAL PATHOLOGY REQUEST Surg Path Routine HSIL (high grade squamous intraepithelial lesion) on Pap smear of cervix Release Upon Ordering for 1 Occurrences starting 05/30/2020 [facility] Comment on above: Release Upon Orderin g for 1 Occurrences starting 05/30/2020 Payers Date Payer Category Payer Private Health Insurance [facility] [id number] 2019-Present [id number] 2019 Unknown [id number] 1996 Unknown [id number] 1996 Unknown [id number] 1996 Unknown [id number] 1996 Unknown [id number] 1959 Unknown [id number] 1959 Unknown [id number] Social History Date Type Detail Facility Start: 05-30-2020 Tobacco smoking status NHIS Never smoker [facility] Start: 05-30-2020 Tobacco use and exposure Never used [facility] Start: 05-30-2020 Alcohol intake Ex-drinker (finding) [facility] Start: 05-23-2020 Alcohol Comment rarely [facility] Sex Assigned At Not on file [facility] Exposure to SARS-CoV-2 (event) Not sure [facility] Sex Assigned At Sex Assigned At Bir th [facility] Other Evaluation note 08-03-2023 Note Date & Type Note Facility 08-03-2023 Evaluation note Encounter Date Diagnosis Assessment Notes Jul, Sinus congestion (ICD-10 - R09.81) Jul, COVID-19 (ICD-10 - U07.1) Rapid COVID test performed in office today. Advised patient that test was positive. Influenza A/B and rapid Strep test negative. Instructed patient to isolate per CDC guidelines for 5 days from symptom onset, mask 5 days following. May return to work/activities outside home after isolation period as long as symptoms are improving and has been afebrile for 24 hours without use of antipyretic. Advised patient that treatment of COVID is with viral supportive care, rx of Capmist, Tylenol/Motrin as needed for body aches/fever. Increase fluids and rest. Encouraged use of cool mist humidifier. Follow-up with PCP to advise of positive result and further management. Immediate eval for SOB, difficulty, chest pain, fevers that do not break with antipyretic or any other concerning symptoms as reviewed on patient education handout. Patient verbalizes understanding and is agreeable to treatment plan. Patient left in stable condition [facility] Other Progress note 05-31-2023 Note Date & Type Note Facility 05-31-2023 Note Called and spoke wit h patient - she just picked Corlanor up from her local pharmacy. No questions at this time and we will no longer follow up until time for PA renewal. Mari Voss, Dionne, [facility] Outpatient Clinical Pharmacist [facility] [id number] 06/03/23 10:57 AM [facility] Progress note 05-31-2023 Note Date & Type Note Facility 05-31-2023 Note New rx received for Corlanor 5mg BID for treatment of G90.A POTS. PA required. Previous meds tried: Florinef (10/27-03/26) Failure Bystolic (10/27-03/26) INTOLERANT Wellbutrin (10/27-03/26) Failure Metoprolol (03/26-Current) Insufficient, sometimes INTOLERANT PA initiated via fax to [facility]. Calling pt to discuss PA process. Pt informed. F/U upon determination. Paul Beck CPhT [facility] 232:54 PM [facility] Progress note 05-31-2023 Note Date & Type Note Facility 05-31-2023 Note PA Approved through 05/29/2024. Patient wants to get it filled at the [facility] in [place]. Transferred prescription via fax ([phone]) at 10:45 AM today. Jesse Rios (Robbie), Dionne, PGY-1 [employer] 06/01/23 10:47 AM [facility] [phone] [facility] Progress note 05-31-2023 Note Date & Type Note Facility 05-31-2023 Note Zo Lange is a ple asant 27 year old adule referred to Dr Tereso Garcia and the S[facility]ope [facility]onomic Disorders [facility] in the Heart [facility] Vascular Center at the [facility] for an evaluation of known postural orthostatic tachycardia syndrome or POTS. She was initially evaluated by Dr. Nenita Lombardo at our clinic several years ago. She then was evaluated by Eli Carballo APRN and Stephen Kan APRN. This is my first encounter with Zo. Chief Complaint: POTS management To briefly recap symptoms of orthostatic intolerance (upright lightheaded, dizziness, near syncope, visual disturbance, fatigue, exercise and activity intolerance, short of breath,fbrain fog, nausea, GI distress) began in high school. Managed well. Symptoms however worse in the last few years. She developed ankylosis spondylitis, unspecified. She developed chronic urticaria. Review of Systems Constitutional: Positive for malaise/fatigue. Cardiovascular: Positive for near-syncope and palpitations. Negative for syncope. Musculoskeletal: Positive for joint pain. Negative for falls. Gastrointestinal: Positive for constipation and nausea. Negative for vomiting. Neurological: Positive for dizziness and light-headedness. Objective Vitals reviewed. Constitutional: Appearance: Healthy appearance. Not in distress. Neck: Vascular: No JVR. JVD normal. Pulmonary: Effort: Pulmonary effort is normal. Breath sounds: Normal breath sounds. No wheezing. No rhonchi. No rales. Chest: Chest wall: Not tender to palpatation. Cardiovascular: PMI at left midclavicular line. Normal rate. Regular rhythm. Normal S1. Normal S2. Murmurs: There is no murmur. No gallop. No click. No rub. Pulses: Intact distal pulses. Edema: Peripheral edema absent. Abdominal: General: Bowel sounds are normal. Palpations: Abdomen is soft. Tenderness: There is no abdominal tenderness. Musculoskeletal: Normal range of motion. General: No tenderness. Comments: Beighton 5th digits, thumbs, elbows, hips.03/14 Skin: General: Skin is warm and dry. Neurological: General: No focal deficit present. Mental Status: Alert and oriented to person, place and time. Assessment/Plan The primary encounter diagnosis was POTS (postural orthostatic tachycardia syndrome). Diagnoses of Chronic urticaria, Ankylosing spondylitis of unspecified sites in spine (CMS/HCC), and Hypermobility syndrome were also pertinent to this visit. Postural orthostatic tachycardia syndrome (POTS) is a syndrome of orthostatic intolerance (OI) commonly seen in rapidly growing adolescents (especially females). Patients typically present with symptoms of upright tachycardia, dizziness, lightheadedness, near syncope, syncope, fatigue, GI distress, headaches, exercise intolerance, brain fog, nausea. This is a disorder of autonomic nervous system dysregulation. The onset of POTS is often post infectious and at puberty. Many adolescents improve slowly over time into their mid 20's. Our job is to keep them socially, academically, emotionally and physically engaged. Patients typically need academic support and may need to reduce school schedule, participate in home-bound instruction, or a combination of at home and on-line. Parents/patients should work with disability services to provide needed academic accomodations if necessary. Often patients also have underlying connective tissue disturbance of Philip Danlos III hypermobility. 70% of patients with hypermobility syndrome have OI/POTS/ dysautonomia. The connective tissue in EDS hypermobility results in increase in elasticity of the ligaments, veins and sometime the skin. This then results in venous pooling and upright tachycardia (the venous system is responsible for holding volume in the dependent extremities and splanchnic vasculature when upright). Additionally, we also know that a number of patients have onset of POTS post viral or pathogen exposure (surgeries, immunizations, other illness). This exposure then likely results in an inflammatory or immune response, which effect the ANS. Our research and others have identified autoantibodies to autonomic receptors (Jose et al, 2019 JAHA). 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 This syndrome is associated with autonomic instability including postural orthostatic tachycardia syndrome. Briefly, mast cells store histamine and other inflammatory mediators. These cells are important in immune function. Current thought is that widespread inappropriate degranulation of the mast cell due to a number of triggers (foods, exercise, stress, hormones, medications etc) result in a release of large amounts of histamine and other inflammatory mediators. This is interpreted by the autonomic nervous system as hypotension (vasodilation). The ANS sympathetic division then tasha an adrenaline type response with release of NE and (more content not included)... [facility] Evaluation note 05-09-2023 Note Date & Type Note Facility 05-09-2023 Evaluation note Encounter Date Diagnosis Assessment Notes May, Sore throat (ICD-10 - J02.9) May, Allergic rhinitis, unspecified seasonality, unspecified trigger (ICD-10 - J30.9) Drink plenty fluids, get plenty of rest. Double up on your loratadine until your symptoms improved. Take Tylenol or Motrin for aches pains or fevers. Follow-up with family physician if no improvement in 2 to 3 days [facility] Other Progress note 03-22-2023 Note Date & Type Note Facility 03-22-2023 Note Cardiology Clinic No te Subjective Zo Lange is a 27 y.o. year old female patient being seen for Rapid Heart Rate, Chest Pain, Shortness of Breath, and Fatigue Patient Active Problem List Diagnosis Postural orthostatic tachycardia syndrome No family history on file. Social History Tobacco Use Smoking status: Never Smokeless tobacco: Never HPI 27-year-old female presents to clinic for routine follow-up for POTS-states that she used to work for the [employer] and had to quit related to symptoms, and the exertion and heat from the job. 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 Review of Systems Constitutional: Positive for malaise/fatigue. Cardiovascular: Positive for near-syncope, palpitations and syncope. Negative for chest pain, dyspnea on exertion, irregular heartbeat, leg swelling, orthopnea and paroxysmal nocturnal dyspnea. Neurological: Positive for light-headedness. Objective Visit Vitals BP 110/73 (BP Location: Left arm, Patient Position: Sitting, BP Cuff Size: Adult) Pulse 83 Ht 1.651 m (5' 5 ) Wt 69.4 kg (153 lb) SpO2 99% BMI 25.46 kg/m??? Smoking Status Never BSA 1.78 m??? Physical Exam General: Awake, alert, NAD Pulm: Breath sounds clear to ascultation bilaterally with no wheeze, crackles or rhonchi Cards: Regular rate and rhythm, S1, S2. No S3 or S4 gallop. Murmur: none Abd: Soft, Nontender, physiologic bowel sounds are present Extr: Lower extremity edema: none. DP pulses: 2+ Skin: warm, dry, well perfused Neuro: A&Ox3, No gross deficits Allergies No Known Allergies Medications Current Outpatient Medications: calcium carbonate-vitamin D3 500 mg-5 mcg (200 unit) tablet, Take 1 tablet by mouth in the morning., Disp: , Rfl: loratadine (Claritin) 10 mg tablet, Take 10 mg by mouth in the morning., Disp: , Rfl: metoprolol tartrate (Lopressor) 25 mg tablet, Take 0.5 tablets (12.5 mg) by mouth in the morning and at bedtime., Disp: 30 tablet, Rfl: 1 sertraline (Zoloft) 50 mg tablet, Take 50 mg by mouth in the morning., Disp: , Rfl: Recent Labs 01/22/2023 WBC 8.5, hemoglobin 12.8, hematocrit 37.7, platelets 295 Sodium 142, potassium 3.9, chloride 106, CO2 25.1, glucose 89, BUN 10, serum creatinine 0.67, estimated GFR greater than 60% total cholesterol 156, HDL 50, triglycerides 77, LDL 90.6 Imaging and other tests Event monitor: 10/10/2020 - 11/08/2020 Baseline sample showed sinus tachycardia with artifact with a heart rate of 105 bpm. There were 0 critical, 0 serious, and 8 stable events that occurred. Stable events showed sinus tachycardia/Sinus arrhythmia. Assessment Diagnoses and all orders for this visit: Postural orthostatic tachycardia syndrome - metoprolol tartrate (Lopressor) 25 mg tablet; Take 0.5 tablets (12.5 mg) by mouth in the morning and at bedtime. POTS (postural orthostatic tachycardia syndrome) - ECG 12 lead Plan 1. Postural orthostatic tachycardia - EKG here today shows sinus rhythm with a rate of 84 bpm. I reviewed pulse rate recorded by her smart watch which show rates ranging from 40s to 170s, averaging over 100 bpm. - She has previously done well on metoprolol, we will start her on metoprolol titrate 12.5 mg twice daily. She reports her depression is well controlled. - Additionally, we will refer her to the neurocardiogenic clinic for further evaluation and management. Stephen Joyce, [employer] [facility] History general Narrative - Reported Note Date & Type Note Facility History general Narrative - Reported Type Medical History Seasonal allergic rhinitis Medical History Depression Medical History POTS (postural ortho static tachycardia syndrome) Medical History Vitamin D deficiency, unspecifie d Surgical History LEEP Surgical History wisdom teeth [place] Other Summary Purpose Family History No Family History Records FoundNo Family History Records FoundNo Family History Records FoundNo Family History Records FoundNo Family History Records FoundNo Family History Records FoundNo Family History Records Found Advance Directives No Advanced Directives Records FoundNo Advanced Directives Records FoundNo Advanced Directives Records FoundNo Advanced Directives Records FoundNo Advanced Directives Records FoundNo Advanced Directives Records FoundNo Advanced Directives Records Found Discharge Instructions * Attachments The following attachments cannot be sent through Care Everywhere. * LEEP (Loop Electrosurgical Excision Procedure): Post-op (Lao) documented in this encounter Assessments Diagnosis Acute post-operative pain- Primary Preop testing Preoperative examination, unspecified HSIL (high grade squamous intraepithelial lesion) on Pap smear of cervix Additional Source Comments INFORMATION SOURCE (unrecogn ized section and content) DATE CREATED AUTHOR 03/18/2019 [facility] DATE CREATED AUTHOR AUTHOR'S ORGANIZ ATION 05/15/2020 [facility] DATE CREATED AUTHOR AUTHOR'S ORGANIZ ATION 05/27/2020 [facility] DATE CREATED AUTHOR AUTHOR'S ORGANIZ ATION 06/06/2020 [facility] DATE CREATED AUTHOR AUTHOR'S ORGANIZ ATION 09/02/2020 [facility] DATE CREATED AUTHOR AUTHOR'S ORGANIZ ATION 01/30/2023 [facility] DATE CREATED AUTHOR AUTHOR'S ORGANIZ ATION 06/14/2023 [facility] Reason for Visit (unrecogniz ed section and content) BODY ACHES, NAUSEA, CONGESTI ON Status Reason Specialty Diagnoses / Procedures Re ferred By Contact Referred To Contact Diagnoses HSIL (high grade squamous intraepithelial lesion) on Pap smear of cervix HSIL (high grade squamous intraepithelial lesion) on Pap smear of cervix [R87.613] Procedures NM CONIZATION CERVIX,LOOP ELECTRD CONIZATION CERVIX W/ LOOP ELECTRODE EXCISION (LEEP) Nenita Smyth RN - 05/30/2020 8:19 AM EDTGNenita juarez RN - 05/30/2020 8:18 AM EDT Nursing Notes (unrecognized section and content) Transported to via cart with Emerald Quintana CRNA. Monitors applied and report given to Shira Strauss RN at bedside Fire risk level of 2 determined during Time Out. ? application site is dry prior to draping and use of surgical equipment. ? No pooling of prep solution around patient or surgical area. ? All prep materials have been removed from the OR prior to draping and use of surgical devices. Monitored by: OR staff OR room temp: 68 OR room humidity: 42 documented in this encounter Nursing Notes - Amina Sanchez RN - 05/30/2020 9:40 AM EDTNursing Notes - Vianey Strauss RN - 05/30/2020 8:55 AM EDTOp Note - Van Pinedo MD - 05/30/2020 8:18 AM EDT Miscellaneous Notes (unrecog nized section and content) Discharge instructions given, pt states understanding, AVS and Rx handed to pt, IV discontinued by [employer]OM[employer] COACH, pt to waiting car via wheelchair in company of [employer] SUPER[employer]. Transferred patient to OP bay 1, report given to Jaime SIMS. at bedside. POST OPERATIVE/PROCEDURE NOTE Zo Reza ([id number]) SURGEON Surgeon(s) and Role: * Van Pinedo MD - Primary ROVING TECHNICIAN None ANESTHESIOLOGIST CHILD ADOLESCENT PSYCHIATRIST: Bao Quintana III, APRN-CHILD ADOLESCENT PSYCHIATRIST SURGICAL STAFF Safety Associate: Taz Peng RN; Nenita Smyth RN Quality Liaison: Na Martin PROCEDURE PERFORMED Procedure(s) (LRB): CONIZATION CERVIX W/ LOOP ELECTRODE EXCISION (LEEP) (N/A) PRIMARY CLOSURE N/A ANESTHESIA (type of) General ESTIMATED BLOOD LOSS Minimal PRE OPERATIVE DIAGNOSIS HSIL (high grade squamous intraepithelial lesion) on Pap smear of cervix [R87.613] POST OPERATIVE DIAGNOSIS HSIL (high grade squamous intraepithelial lesion) on Pap smear of cervix [R87.613] FINDINGS Colposcopy was performed at the time of surgery and colposcopic findings were reflected with previously performed colposcopic exam at [facility] CONDITION OF PATIENT Stable COMPLICATIONS None SPECIMENS Cytology specimen sent ID Type Source Tests Collected by Time Destination A : Endocervix Permanent TISSUE SURGICAL PATHOLOGY REQUEST Van Pinedo MD 05/30/2020816 B : Exocervix Permanent TISSUE SURGICAL PATHOLOGY REQUEST Van Pinedo MD 05/30/2020816 Procedure in detail: The patient was taken to the operating room and underwent general endotracheal anesthesia. She was placed in the dorsal lithotomy position and underwent prep and drape. After prep and drape coated speculum was inserted into the vagina and the cervix was visualized. Acetic acid solution was applied to the cervix and colposcopic exam was performed with findings as noted above. Paracervical block was initiated by injecting 1% lidocaine with epinephrine into the stroma of the cervix. At this point the 10 x 25 mm loop was used to make a single pass through the ectocervix. A second endocervical pass was then made with a 10 x 10 mm loop. The specimens were handed off to the nurse and labeled ectocervix and endocervix. The cone bed was then coagulated with the 5 mm ball and then an area 5 mm distal to the distal margins of the cone bed was coagulated with the 5 mm ball. Monsel's astringent was then applied to the cervix and hemostasis was verified. All instruments were removed, the patient was taken out of the dorsal lithotomy position, her anesthesia was reversed, she was extubated and transferred to the recovery room in stable condition. Van Pinedo MD May 30, 2020 8:18 AM Please see immediate operative note. Patient arrived PACU, received report from Nenita SIMS and Bernabe RICHARD. Applied luly pad, no vaginal bleeding noted. Safety maintained. documented in this encounter FOR RECORDS PERTAINING TO PATIENTS WHO ARE OR HAVE BEEN ENROLLED IN A CHEMICAL DEPENDENCY/SUBSTANCEABUSE PROGRAM, SOME INFORMATION MAY BE OMITTED. This clinical summary was aggregated from multiple sources. Caution should be exercised in using it in the provision of clinical care. This summary normalizes information from multiple sources, and as a consequence, information in this document may materially change the coding, format and clinical context of patient data. In addition, data may be omitted in some cases. CLINICAL DECISIONS SHOULD BE BASED ON THE PRIMARY CLINICAL RECORDS. [facility]. provides no warranty or guarantee of the accuracy or completeness of information in this document.
[2024-07-08 11:22] LABS: Bilirubin Urine NEGATIVE (NEGATIVE); Blood Urine SMALL (NEGATIVE); Color Urine LT. YELLOW (YELLOW); Glucose Urine UA NEGATIVE (NEGATIVE); Ketones Urine NEGATIVE (NEGATIVE); Leukocyte Esterase Urine TRACE (NEGATIVE); Nitrite Urine NEGATIVE (NEGATIVE); Protein Urine NEGATIVE (NEG/TRACE); Specific Gravity Urine 1.015 (1.005-1.025); Urobilinogen Urine 0.2 EU/dL (0.2-1.0); pH Urine 7.5 (5.0-9.0)
[2024-07-08 12:32] LABS: Clarity Urine SLIGHTLY CLOUDY (CLEAR)
[2024-07-08 12:33] LABS: Bacteria Urine MODERATE #/HPF (NONE SEEN); Cast Seen? NONE SEEN #/LPF (NONE SEEN); Crystals Seen? None Seen #/HPF (None Seen); Mucus Urine NONE SEEN (NONE SEEN); Urine Culture Indicated ALREADY ORDERED
[2024-07-08 12:35] LABS: Squamous Epithelial Cell Urine MANY #/LPF (NONE/RARE)
== END 2024-07-08 10:55 | disposition home or self-care (01) ==
LOC: LAB 10:56
PROVIDERS: PCP Nurse Practitioner Family; Visit Provider Nurse Practitioner Family
DX: R31.9 Hematuria, unspecified (principal)
CPT/HCPCS: 81001; 87086; 87150; 87186

== ENCOUNTER 2024-11-09 11:57 | Outpatient (OUT) | payer OTHER, SELFPAY ==
--- OUTSIDE RECORDS SUMMARY | 2024-11-09 12:08 | XMS_ITS | CCD ---
Author Organization [facility] Care Team Providers Care Print Manager Name Role Phone VAN PINEDO Attending Unavailable [...] oral tablet (1 source) alpha-Adrenergic Agonist, Uncompetitive K-qyhpih-P-aspartate Receptor Antagonist, Sigma-1 Agonist Start: 08-03-20 23 [...] Anesthetic Start: 05-30-2020 End: 05-30-2020 lidocaine-epinephrin e 1%-1:967415 injection 1 ml HYDROmorphone hydrochloride 2 mg/ml [...] (COVID-19) RNA DORINDA+probe Ql (Unsp spec) Positive [employer] Other COVID/FLU RT-PCR Negative [employer] Other Quick Strepon 08-03-2023 S. pyogenes Org specific cx Ql (Throat) Negative [employer] Other Quick Strep [employer] Other [id number] 06-11-2023 [id number] Patient calls again with symptoms. Fatigue, chest pain, brain fog and high HR. Corlanor doesn't seem to be helping. Normal [facility] Patient Messageon 06-09-2023 Patient Message [id number] Zo Lange Nahun 1995 F Date Provider Department Center 06/09/2023 HAIR TAI [facility] CARD [place] HeartVAS Family History Problem [...] Mother Father Other Alive Neg Hx Normal [facility] CATECHOLAMINES, FRACTIONATED , PLASMAon 05-31-2023 CATECHOLAMINE INTERPRETATION See Note Normal [facility] Comment on above: Order Comment: Supin e [...] developed and its performance characteristics determined by [facility]. It has not been cleared or approved by the US Food and Drug Administration. This test was performed in a CLIA certified laboratory and is intended for clinical purposes. Performed By: [facility] [address] [place] [address] Dyeing Machine Back Tender: Akira Mercado MD, PhD CLIA Number: [id number] Performed By: #### L [id number] ####[facility] ([facility])[address] [place] [address] DOPAMINE (PG/ML) IN SER/PLAS <20 Normal 0-20 [facility] Comment on above: Order Comment: Supin e 30 minutes NE, EPI, DopamineUpright 30 minutes repeat NE, EPI, Dopamine Performed By: #### L [id number] ####[facility] ([facility] [place] [address] EPINEPHRINE <10 Low 10-200 [facility] Comment on above: Order Comment: Supin e 30 minutes NE, EPI, DopamineUpright 30 minutes repeat NE, EPI, Dopamine Performed By: #### L [id number] ####[facility] ([facility])[address] [place] [address] NOREPINEPHRINE (PG/ML) IN PLASMA 211 pg/mL Normal 80-520 [facility] Comment on above: Order Comment: Supin e 30 minutes NE, EPI, DopamineUpright 30 minutes repeat NE, EPI, Dopamine Performed By: #### L [id number] ####[facility] ([place])[address] [place] [address] CORTISOLon 05-31-2023 CORTISOL (UG/DL) IN SER/PLAS 3.2 ug/dL Normal 0-9 [facility] Comment on above: Performed By: #### L [id number] ####[facility] ([place])[address] [place] [address] Consulton 05-31-2023 Consult [id number] Zo Lange 1995 F Date Provider Department Center 05/31/2023 135-[facility]IR [facility] CARD [place] HeartVAS Family History Problem Relation Age of Onset No Known Problems Mother Other Father Ankylosing spondylitis Other Celiac disease Other Rheum arthritis Other Seizures Neg Hx Fainting Neg Hx Sudden Neg Hx Arrhythmia Neg Hx SIDS Neg Hx Congenital heart disease Neg Hx Congenital Hearing Loss Neg Hx Family Status - Relation Status Age at Mother Father Other Alive Neg Hx Level of Service:04096 MS OFFICE/OUTPATIENT ESTABLISHED MOD MDM 30-39 MIN Reason for Visit and Comments: Follow-up [564235] - POTS Normal [facility] Documentationon 05-31-2023 Documentation [id number] Zo Lange 1995 Date Provider Department Center [...] Specialty Pharmacy Note [Other] - Corlanor Normal [facility] HISTAMINE, PLASMAon 05-31-20 23 HISTAMINE PLASMA <8 Normal 0-8 [facility] Comment on above: Result Comment: INTE RPRETIVE INFORMATION: Histamine, Plasma This test was developed and its performance characteristics determined by [facility] [employer]. It has not been cleared or approved by the US Food and Drug Administration. This test was performed in a CLIA certified laboratory and is intended for clinical purposes. Performed By: [facility] [address] [place] [address] Dyeing Machine Back Tender: Akira Mercado MD, PhD CLIA Number: [id number] Performed By: #### L [id number] ####[facility] ([facility])[address] [place] [address] Labon 05-31-2023 Lab [id number] Zo Lange 1995 F Date Provider Department [place] 05/31/2023 [id number] RESOURCE [facility] [place] Medical Family History Problem Relation Age of Onset No Known Problems Mother Other Father Ankylosing spondylitis Other Celiac disease Other Rheum arthritis Other Seizures Neg Hx Fainting Neg Hx Sudden Neg Hx Arrhythmia Neg Hx SIDS Neg Hx Congenital heart disease Neg Hx Congenital Hearing Loss Neg Hx Family Status - Relation Status Age at Mother Father Other Alive Neg Hx Normal [facility] METANEPHRINES PLASMAon 05-31 METANEPHRINE 0.11 nmol/L Normal 0.00-0.49 [facility] Comment on above: Performed By: #### L [id number] ####[facility] ([facility])[address] [place] [address] METANEPHRINE INTERP See Note Normal [facility] Comment on above: Result Comment: INTE [...] developed and its performance characteristics determined by [facility]. It has not been cleared or approved by the US Food and Drug Administration. This test was performed in a CLIA certified laboratory and is intended for clinical purposes. Performed By: [facility] [address] [place] [address] Dyeing Machine Back Tender: Akira Mercado MD, PhD CLIA Number: [id number] Performed By: #### L [id number] ####[facility] ([facility])[address] [place] [address] NORMETANEPHRINE 0.22 nmol/L Normal 0.00-0.89 [facility] Comment on above: Performed By: #### L [id number] ####[facility] ([facility])[address] [place] [address] PTH, INTACTon 05-31-2023 PARATHYRIN INTACT (PG/ML) IN SER/PLAS 27 pg/mL Normal 12-88 [facility] Comment on above: Performed By: #### L [id number] ####[facility] ([place])[address] [place] [address] THYROID PEROXIDASE ANTIBODYo n 05-31-2023 THYROPEROXIDASE AB (IU/ML) IN SER/PLAS 2.3 IU/mL Normal 0.0-9.0 [facility] Comment on above: Result Comment: Perf ormed By: [employer] [address] [place] [address] Dyeing Machine Back Tender: Akira Mercado MD, PhD CLIA Number: [id number] Performed By: #### L [id number] ####[facility] ([facility])[address] [place] [address] THYROID STIMULATING IMMUNOGL OBULINon 05-31-2023 THYROID STIMULATING IMMUNOGLOBULIN <0.10 Normal <=0.54 [facility] Comment on above: Result Comment: INTE [...] medical history, and other findings. Performed By: [facility] [address] [place] [address] Dyeing Machine Back Tender: Akira Mercado MD, PhD CLIA Number: [id number] Performed By: #### L [id number] ####[facility] ([facility])[address] [place] [address] TRYPTASEon 05-31-2023 TRYPTASE (NG/ML) IN SER/PLAS 5.4 ug/L Normal <=10.9 [facility] Comment on above: Result Comment: Perf ormed By: [facility] [address] [place] [address] Dyeing Machine Back Tender: Akira Mercado MD, PhD CLIA Number: [id number] Performed By: #### L [id number] ####[facility] ([facility])[address] [place] [address] [facility] 05-09-2023 S. pyogenes Org specific cx Ql (Throat) Negative [facility] [employer] Other [facility] Other 36on 03-30-2023 36 ? She can take two pills if BP is above 100 and HR is high. I agree with arm BP cuff for monitoring. Thanks. [facility] 36 Incomplete Note ? She can take two pills if BP is above 100 and HR is high. I agree with arm BP cuff for monitoring. Thanks. [facility] 36 She can take two pills if BP is above 100 and HR is high. I agree with arm BP cuff for monitoring. Thanks. [facility] 36 Patient called to make you aware that her HR is still in the 150's. She said after you started her on low dose metoprolol, the first two days were fine. Ever since then her HR has shot back up. She isn't scheduled with Lindsey yet so I will reach back out to the [facility] girls again. I advised patient to get a BP cuff if possible. Any suggestions for her? Thanks! [facility] 36on 03-22-2023 36 Hi Radha. Can you please get this patient set up to see Lindsey for POTS? Thanks so much. [facility] Office Visiton 03-22-2023 Follow-up visit [id number] Davidson Langecarlo Garnica 1995 F Date Provider Department Center 03/22/2023 STEPHEN PAYNE JAD Callahan No family history on file Level of Service:05586 MS OFFICE/OUTPATIENT ESTABLISHED LOW MDM 20-29 MIN Reason for Visit and Comments: Rapid Heart Rate [556355] Chest Pain [051460] Shortness of Breath [041890] Fatigue [46] Normal [facility] ESTROGENon 01-30-2023 Estrogens, Total 42 pg/mL Normal [facility] Comment on above: Result Comment: Prep ubertal < 40 Female Cycle: 1-10 Days 16 - 328 11-20 Days 34 - 501 21-30 Days 48 - 350 Post-Menopausal 40 - 244 Performed By: #### T SH, FT3, CMP, LIPID, T4 #### [facility] [address] [place] [address] Dr. John Patel FSHon 01-23-2023 FSH 5.0 mIU/mL Normal [facility] Comment on above: Result Comment: Adul t Female: Follicular phase 3.5 - 12.5 Ovulation phase 4.7 - 21.5 Luteal phase 1.7 - 7.7 Postmenopausal 25.8 - 134.8 Performed By: #### L [facility] #### [facility] [address] [place] [address] Dr. John Patel INSULINon 01-23-2023 Insulin 7.6 uIU/mL Normal 2.6-24.9 [facility] Comment on above: Performed By: #### T SH, FT3, CMP, LIPID, T4 #### [facility] [address] [place] [address] Dr. John Patel PROGESTERONEon 01-23-2023 Progesterone 0.2 ng/mL Normal [facility] Comment on above: Result Comment: Foll icular phase 0.1 - 0.9 Luteal phase 1.8 - 23.9 Ovulation phase 0.1 - 12.0 First trimester 11.0 - 44.3 Second trimester 25.4 - 83.3 Third trimester 58.7 - 214.0 Postmenopausal 0.0 - 0.1 Performed By: #### P ROGES #### [facility] [address] [place] [address] Dr. John Patel PROLACTINon 01-23-2023 Prolactin 8.6 ng/mL Normal 4.8-23.3 [facility] Comment on above: Performed By: #### T SH, FT3, CMP, LIPID, T4 #### [facility] [address] [place] [address] Dr. John Patel CBC AUTO DIFFon 01-22-2023 BASO # 0.0 103/ul Normal 0.0-0.1 [facility] Comment on above: Performed By: #### T SH, FT3, CMP, LIPID, T4 #### [facility] [address] [place] [address] Dr. John Patel Basophils/100 WBC (Bld) 0.5 % Normal 0.2-2.0 [facility] Comment on above: Performed By: #### T SH, FT3, CMP, LIPID, T4 #### [facility] [address] [place] [address] Dr. John Patel EO # 0.1 103/ul Normal 0.0-0.7 [facility] Comment on above: Performed By: #### T SH, FT3, CMP, LIPID, T4 #### [facility] [address] [place] [address] Dr. John Patel Eosinophils/100 WBC (Bld) 0.7 % Critically low 0.9-7.0 [facility] Comment on above: Performed By: #### T SH, FT3, CMP, LIPID, T4 #### [facility] [address] [place] [address] Dr. John Patel Erythrocyte distribution width (RBC) [Ratio] 12.3 % Normal 11.0-15.0 [facility] Comment on above: Performed By: #### T SH, FT3, CMP, LIPID, T4 #### [facility] [address] [place] [address] Dr. John Patel Hematocrit (Bld) [Volume fraction] 37.7 % Normal 36.0-48.0 [facility] Comment on above: Performed By: #### T SH, FT3, CMP, LIPID, T4 #### [facility] [address] [place] [address] Dr. John Patel Hemoglobin (Bld) [Mass/Vol] 12.8 g/dL Normal 12.0-16.0 [facility] Comment on above: Performed By: #### T SH, FT3, CMP, LIPID, T4 #### [facility] [address] [place] [address] Dr. John Patel IG # 0.03 10e3/ul Normal 0.00-0.03 [facility] Comment on above: Performed By: #### T SH, FT3, CMP, LIPID, T4 #### [facility] [address] [place] [address] Dr. John Patel IG % 0.4 % Normal 0.0-0.5 [facility] Comment on above: Performed By: #### T SH, FT3, CMP, LIPID, T4 #### [facility] [address] [place] [address] Dr. Jhon Patel LYMPH # 1.8 103/ul Normal 1.2-3.8 [facility] Comment on above: Performed By: #### T SH, FT3, CMP, LIPID, T4 #### [facility] [address] [place] [address] Dr. John Patel Lymphocytes/100 WBC (Bld) 21.4 % Normal 20.5-60.0 [facility] Comment on above: Performed By: #### T SH, FT3, CMP, LIPID, T4 #### [facility] [address] [place] [address] Dr. John Patel MANUAL DIFF REQ NO Normal [facility] Comment on above: Performed By: #### T SH, FT3, CMP, LIPID, T4 #### [facility] [address] [place] [address] Dr. John Patel MCH (RBC) [Entitic mass] 27.6 pg Normal 26.7-34.0 [facility] Comment on above: Performed By: #### T SH, FT3, CMP, LIPID, T4 #### [facility] [address] [place] [address] Dr. John Patel MCHC (RBC) [Mass/Vol] 34.0 g/dL Normal 29.9-35.2 [facility] Comment on above: Performed By: #### T SH, FT3, CMP, LIPID, T4 #### [facility] [address] [place] [address] Dr. John Patel MCV (RBC) [Entitic vol] 81.3 fL Normal 81.0-99.0 [facility] Comment on above: Performed By: #### T SH, FT3, CMP, LIPID, T4 #### [facility] [address] [place] [address] Dr. John Patel MONO # 0.4 103/ul Normal 0.3-0.8 [facility] Comment on above: Performed By: #### T SH, FT3, CMP, LIPID, T4 #### [facility] [address] [place] [address] Dr. John Patel Monocytes/100 WBC (Bld) 4.5 % Normal 1.7-12.0 [facility] Comment on above: Performed By: #### T SH, FT3, CMP, LIPID, T4 #### [facility] [address] [place] [address] Dr. John Patel NEUT # 6.2 103/ul Normal 1.4-6.5 [facility] Comment on above: Performed By: #### T SH, FT3, CMP, LIPID, T4 #### [facility] [address] [place] [address] Dr. John Patel Neutrophils/100 WBC (Bld) 72.5 % Normal 43.0-75.0 [facility] Comment on above: Performed By: #### T SH, FT3, CMP, LIPID, T4 #### [facility] [address] [place] [address] Dr. John Patel Platelet mean volume (Bld) [Entitic vol] 10.1 fL Normal 9.5-13.5 [facility] Comment on above: Performed By: #### T SH, FT3, CMP, LIPID, T4 #### [facility] [address] [address] [address] John Patel PLT 295 103/ul Normal 150-450 [facility] Comment on above: Performed By: #### T SH, FT3, CMP, LIPID, T4 #### [facility] [address] [address] [address] John Patel RBC 4.64 106/ul Normal 4.20-5.40 [facility] Comment on above: Performed By: #### T SH, FT3, CMP, LIPID, T4 #### [facility] [address] [address] [address] John Patel WBC 8.5 103/ul Normal 4.0-11.0 [facility] Comment on above: Performed By: #### T SH, FT3, CMP, LIPID, T4 #### [facility] [address] [place] [address] Dr. John Patel FREE T3on 01-22-2023 FREE T3 2.44 pg/mlL Normal 2.18-3.98 [facility] Comment on above: Performed By: #### T SH, FT3, CMP, LIPID, T4 #### [facility] [address] [place] [address] Dr. John Patel GLYCOHEMOGLOBIN A1Con 2022 ADA RECOMMENDATION SEE BELOW Normal [facility] Comment on above: Result Comment: ADA RECOMMENDED LIMIT 4.0 - 6.0 ADA THERAPEUTIC TARGET < 7.0 ACTION SUGGESTED > 7.0 Performed By: #### A 1C #### [facility] [address] [place] [address] Dr. John Patel Glucose [Mass/Vol] 94 mg/dL Normal [facility] Comment on above: Performed By: #### A 1C #### [facility] [address] [place] [address] Dr. John Patel HbA1c (Bld) [Mass fraction] 4.9 % Normal 4.5-6.2 [facility] Comment on above: Performed By: #### A 1C #### [facility] [address] [address] [address] John Patel IRONon 01-22-2023 Iron [Mass/Vol] 55.0 ug/dL Normal 50.0-170.0 [facility] Comment on above: Performed By: #### V ITAD, IRON #### [facility] [address] [address] [address] John Patel LIPID PROFILEon 01-22-2023 CHOL-HDL RATIO NORM SEE BELOW Normal [facility] Comment on above: Result Comment: 3.3 - 4.4 LOW RISK 4.4 - 7.1 AVERAGE RISK 7.1 - 11.0 MODERATE RISK >11.0 HIGH RISK Performed By: #### T SH, FT3, CMP, LIPID, T4 #### [facility] [address] [address] [address] John Patel Cholesterol [Mass/Vol] 156 mg/dL Normal <=200 [facility] Comment on above: Performed By: #### T SH, FT3, CMP, LIPID, T4 #### [facility] [address] [address] [address] John Patel Cholesterol in HDL [Mass/Vol] 50 mg/dL Normal 40-60 [facility] Comment on above: Performed By: #### T SH, FT3, CMP, LIPID, T4 #### [facility] [address] [address] [address] John Patel Cholesterol in LDL [Mass/Vol] 90.6 mg/dL Normal [facility] Comment on above: Performed By: #### T SH, FT3, CMP, LIPID, T4 #### [facility] [address] [address] [address] John Patel Cholesterol.total/Cho lesterol in HDL [Mass ratio] 3.1 {ratio} Normal [facility] Comment on above: Performed By: #### T SH, FT3, CMP, LIPID, T4 #### [facility] [address] [address] [address] John Patel HDL NORMAL > or = 60 mg/dl - LOW CARDIOVASCULAR RISK <40 mg/dl - HIGH CARDIOVASCULAR RISK Normal [facility] Comment on above: Performed By: #### T SH, FT3, CMP, LIPID, T4 #### [facility] [address] [address] [address] John Patel LDL CALC NORMAL SEE BELOW Normal [facility] Comment on above: Result Comment: <100 mg/dl OPTIMAL 100 - 129 mg/dl NEAR OR ABOVE OPTIMAL 130 - 159 mg/dl BORDERLINE HIGH 160 - 189 mg/dl HIGH >190 mg/dl VERY HIGH Performed By: #### T SH, FT3, CMP, LIPID, T4 #### [facility] [address] [address] [address] John Patel Triglyceride [Mass/Vol] 77 mg/dL Normal <=150 [facility] Comment on above: Performed By: #### T SH, FT3, CMP, LIPID, T4 #### [facility] [address] [address] [address] John Patel VLDL CALC 15.4 mg/dL Normal [facility] Comment on above: Performed By: #### T SH, FT3, CMP, LIPID, T4 #### [facility] [address] [address] [address] John Patel PROF 14(COMP METB)on 023 Albumin [Mass/Vol] 3.6 g/dL Normal 3.4-5.0 [facility] Comment on above: Performed By: #### T SH, FT3, CMP, LIPID, T4 #### [facility] [address] [address] [address] John Patel Albumin/Globulin [Mass ratio] 1.0 {ratio} Normal [facility] Comment on above: Performed By: #### T SH, FT3, CMP, LIPID, T4 #### [facility] [address] [address] [address] John Patel ALP [Catalytic activity/Vol] 67 U/L Normal 46-116 [facility] Comment on above: Performed By: #### T SH, FT3, CMP, LIPID, T4 #### [facility] [address] [address] [address] John Patel ALT [Catalytic activity/Vol] 23 U/L Normal 14-59 [facility] Comment on above: Performed By: #### T SH, FT3, CMP, LIPID, T4 #### [facility] [address] [place] [address] Dr. John Patel Anion gap [Moles/Vol] 14.8 mmol/L Normal [facility] Comment on above: Performed By: #### T SH, FT3, CMP, LIPID, T4 #### [facility] [address] [address] [address] John Patel AST [Catalytic activity/Vol] 12 U/L Critically low 15-37 [facility] Comment on above: Performed By: #### T SH, FT3, CMP, LIPID, T4 #### [facility] [address] [place] [address] Dr. John Patel Bilirubin [Mass/Vol] 0.3 mg/dL Normal 0.2-1.0 [facility] Comment on above: Performed By: #### T SH, FT3, CMP, LIPID, T4 #### [facility] [address] [place] [address] Dr. John Patel Calcium [Mass/Vol] 8.7 mg/dL Normal 8.5-10.1 [facility] Comment on above: Performed By: #### T SH, FT3, CMP, LIPID, T4 #### [facility] [address] [place] [address] Dr. John Patel Chloride [Moles/Vol] 106 mmol/L Normal 98-107 [facility] Comment on above: Performed By: #### T SH, FT3, CMP, LIPID, T4 #### [facility] [address] [place] [address] Dr. John Patel CO2 [Moles/Vol] 25.1 mmol/L Normal 21.0-32.0 [facility] Comment on above: Performed By: #### T SH, FT3, CMP, LIPID, T4 #### [facility] [address] [place] [address] Dr. John Patel Creatinine [Mass/Vol] 0.67 mg/dL Normal 0.55-1.02 [facility] Comment on above: Performed By: #### T SH, FT3, CMP, LIPID, T4 #### [facility] [address] [place] [address] Dr. John Patel EGFR-AF JORDANIAN >60 Normal >=60 [facility] Comment on above: Performed By: #### T SH, FT3, CMP, LIPID, T4 #### [facility] [address] [place] [address] Dr. John Patel EGFR-NON AF JORDANIAN >60 Normal >=60 [facility] Comment on above: Performed By: #### T SH, FT3, CMP, LIPID, T4 #### [facility] [address] [place] [address] Dr. John Patel Globulin (S) [Mass/Vol] 3.6 g/dL Normal [facility] Comment on above: Performed By: #### T SH, FT3, CMP, LIPID, T4 #### [facility] [address] [place] [address] Dr. John Patel Glucose [Mass/Vol] 89 mg/dL Normal 74-106 [facility] Comment on above: Performed By: #### T SH, FT3, CMP, LIPID, T4 #### [facility] [address] [place] [address] Dr. John Patel Potassium [Moles/Vol] 3.9 mmol/L Normal 3.5-5.1 [facility] Comment on above: Performed By: #### T SH, FT3, CMP, LIPID, T4 #### [facility] [address] [place] [address] Dr. John Patel Protein [Mass/Vol] 7.2 g/dL Normal 6.4-8.2 [facility] Comment on above: Performed By: #### T SH, FT3, CMP, LIPID, T4 #### [facility] [address] [place] [address] Dr. John Patel Sodium [Moles/Vol] 142 mmol/L Normal 136-145 [facility] Comment on above: Performed By: #### T SH, FT3, CMP, LIPID, T4 #### [facility] [address] [address] [address] John Patel Urea nitrogen [Mass/Vol] 10.0 mg/dL Normal 7.0-18.0 [facility] Comment on above: Performed By: #### T SH, FT3, CMP, LIPID, T4 #### [facility] [address] [place] [address] Dr. John Patel Urea nitrogen/Creatinine [Mass ratio] 14.9 mg/mg Normal [facility] Comment on above: Performed By: #### T SH, FT3, CMP, LIPID, T4 #### [facility] [address] [address] [address] John Patel T4on 01-22-2023 T4 [Mass/Vol] 6.60 ug/dL Normal 4.80-13.90 [facility] Comment on above: Performed By: #### T SH, FT3, CMP, LIPID, T4 #### [facility] [address] [place] [address] Dr. John Patel TSHon 01-22-2023 TSH 1.541 uIU/mL Normal 0.358-3.740 [facility] Comment on above: Performed By: #### T SH, FT3, CMP, LIPID, T4 #### [facility] [address] [place] [address] Dr. John Patel VITAMIN D 25 OHon 01-22-2023 VIT D 25-OH 22.3 ng/mL Normal [facility] Comment on above: Performed By: #### V ITKAYLEIGH, IRON #### [facility] [address] [place] [address] Dr. John Patel VIT D RANGES SEE BELOW Normal [facility] Comment on above: Result Comment: <20 ng/mL Vit D deficient 20 - <30 ng/mL Vit D insufficient 30 - 100 ng/mL Vit D sufficient >100 ng/mL Potential Toxicity Performed By: #### V ITKAYLEIGH, IRON #### [facility] [address] [place] [address] Dr. John Patel Quantiferon TB-Gold+on 09-02 QFT MITOGEN ZAYRA > 10.00 Normal . [facility] Comment on above: Performed By: #### L 3400.8000 #### [facility] (refer to report for specific site) refer to report for address and phone number QFT NIL VALUE 0.03 IU/mL Normal . [facility] Comment on above: Performed By: #### L 3400.8000 #### [facility] (refer to report for specific site) refer to report for address and phone number QFT TB GOLD Comment Normal . [facility] Comment on above: Result Comment: The QuantiFERON-TB Gold Plus result is determined by subtracting the Nil value from either TB antigen (Ag) tube. The mitogen tube serves as a control for the test. Performed By: #### L 3400.8000 #### [facility] (refer to report for specific site) refer to report for address and phone number QFT TB POS CRIT Negative Normal Negative [facility] Comment on above: Result Comment: The specimen received for QuantiFERON testing was incubated by the ordering institution. Specific procedures outlined in our Directory of Services and in the package insert for the QuantiFERON Gold (In Tube) test must be followed to enable for proper stimulation of cells for the production of interferon gamma. Performed at: [facility] [id number] Creative Services Specialist: Galindo Forte PhD, Phone: [phone] Performed By: #### L 3400.7999 #### [facility] (refer to report for specific site) refer to report for address and phone number QFT TB1+ AG ZAYRA 0.04 IU/mL Normal . [facility] Comment on above: Performed By: #### L 3400.7999 #### [facility] (refer to report for specific site) refer to report for address and phone number QFT TB2+ AG ZAYRA 0.02 IU/mL Normal . [facility] Comment on above: Performed By: #### L 3400.8000 #### [facility] (refer to report for specific site) refer to report for address and phone number CBC W/Diff, Automatedon 12-2 Absolute Neut 5.8 X10 3/uL Normal 2.0-7.7 [facility] Comment on above: Performed By: #### L 3400.8000 #### [facility] (refer to report for specific site) refer to report for address and phone number Basophils/100 WBC (Bld) 0.5 % Normal 0-1 [facility] Comment on above: Performed By: #### L 3400.8000 #### [facility] (refer to report for specific site) refer to report for address and phone number Eosinophils/100 WBC (Bld) 0.8 % Normal 0-5 [facility] Comment on above: Performed By: #### L 3400.8000 #### [facility] (refer to report for specific site) refer to report for address and phone number Erythrocyte distribution width (RBC) [Ratio] 12.3 % Normal 11.6-14.6 [facility] Comment on above: Performed By: #### L 3400.8000 #### [facility] (refer to report for specific site) refer to report for address and phone number Hematocrit (Bld) [Volume fraction] 37.7 % Normal 37-47 [facility] Comment on above: Performed By: #### L 3400.8000 #### [facility] (refer to report for specific site) refer to report for address and phone number Hemoglobin (Bld) [Mass/Vol] 12.5 g/dL Normal 12.0-15.0 [facility] Comment on above: Performed By: #### L 3400.8000 #### [facility] (refer to report for specific site) refer to report for address and phone number IM GRAN % 0.500 % Normal 0.0-0.9 [facility] Comment on above: Result Comment: IG% - Immature Granulocytes (promyelocytes, myelocytes and metamyelocytes) > 1% indicates that a LEFT SHIFT is Present. Performed By: #### L 3400.8000 #### [facility] (refer to report for specific site) refer to report for address and phone number Lymphocytes (Bld) [#/Vol] 1.92 X10 3/uL Normal 0.83-4.51 [facility] Comment on above: Performed By: #### L 3400.8000 #### [facility] (refer to report for specific site) refer to report for address and phone number Lymphocytes/100 WBC (Bld) 23.0 % Normal 19-41 [facility] Comment on above: Performed By: #### L 3400.8000 #### [facility] (refer to report for specific site) refer to report for address and phone number MCH (RBC) [Entitic mass] 28.0 pg Normal 27.0-32.0 [facility] Comment on above: Performed By: #### L 3400.8000 #### [facility] (refer to report for specific site) refer to report for address and phone number MCHC (RBC) [Mass/Vol] 33.2 g/dL Normal 32-[address] [facility] Comment on above: Performed By: #### L 3400.8000 #### [facility] (refer to report for specific site) refer to report for address and phone number MCV (RBC) [Entitic vol] 84.5 fL Normal 81-99 [facility] Comment on above: Performed By: #### L 3400.8000 #### [facility] (refer to report for specific site) refer to report for address and phone number Monocytes/100 WBC (Bld) 5.5 % Normal 0-10 [facility] Comment on above: Performed By: #### L 3400.8000 #### [facility] (refer to report for specific site) refer to report for address and phone number Neutrophils/100 WBC (Bld) 69.7 % Normal 47-70 [facility] Comment on above: Performed By: #### L 3400.8000 #### [facility] (refer to report for specific site) refer to report for address and phone number NRBC, FLAGGED 0 % Normal 0-5 [facility] Comment on above: Performed By: #### L 3400.8000 #### [facility] (refer to report for specific site) refer to report for address and phone number Platelet mean volume (Bld) [Entitic vol] 10.6 fL Normal 6.2-12.0 [facility] Comment on above: Performed By: #### L 3400.8000 #### [facility] (refer to report for specific site) refer to report for address and phone number Platelets (Bld) [#/Vol] 307 10*3/uL Normal 150-450 [facility] Comment on above: Performed By: #### L 3400.8000 #### [facility] (refer to report for specific site) refer to report for address and phone number RBC (Bld) [#/Vol] 4.46 M/mm3 Normal 4.2-5.4 [facility] Comment on above: Performed By: #### L 3400.8000 #### [facility] (refer to report for specific site) refer to report for address and phone number RDW SD 37.5 fl Normal 35.1-43.9 [facility] Comment on above: Performed By: #### L 3400.8000 #### [facility] (refer to report for specific site) refer to report for address and phone number WBC (Bld) [#/Vol] 8.3 10*3/uL Normal 4.4-11.0 [facility] Comment on above: Performed By: #### L 3400.8000 #### [facility] (refer to report for specific site) refer to report for address and phone number Cerv Spine 4 or 5 Viewson Cerv Spine 4 or 5 Views [facility] [address] [place] [address] Cerv Spine 4 or 5 Views MR#: [id number] Acct: [id number] Name: ZO REZA Rep #: [id number] : 1995 F 25 From: Leonardo restrepo MD PCP: Dr. Bj Leon MD Status: [facility] CLI Study: Cerv Spine 4 or 5 Views Date of Exam: 08/27/20 Exam# [id number] Ordering Dr: Desi Moraes MD STUDY: X-RAY [...] Bj Leon MD; Dr. Desi Moraes MD Frog Farmer: Signed Normal [facility] Chest PA and Lateralon 08-27 Chest PA and Lateral [facility] [address] [place] [address] Chest PA and Lateral MR#: [id number] Acct: [id number] Name: ZO REZA Rep #: [id number] : 1995 25 From: Matheus stahl MD PCP: Dr. jB Leon MD Status: [facility] CLI Study: Chest PA and Lateral Date of Exam: 08/27/20 Exam# [id number] Ordering Dr: Desi Moraes MD STUDY: X-RAY [...] Bj Leon MD; Dr. Desi Moraes MD Frog Farmer: Signed Normal [facility] Comprehensive Metabolic Prof ilon 08-27-2020 Albumin [Mass/Vol] 3.8 g/dL Normal 3.2-5.0 [facility] Comment on above: Performed By: #### L 3400.8000 #### [facility] (refer to report for specific site) refer to report for address and phone number Albumin/Globulin [Mass ratio] 1.1 {ratio} Normal 0.9-2.4 [facility] Comment on above: Performed By: #### L 3400.8000 #### [facility] (refer to report for specific site) refer to report for address and phone number ALK P 60 U/L Normal 45-117 [facility] Comment on above: Performed By: #### L 3400.8000 #### [facility] (refer to report for specific site) refer to report for address and phone number ALT [Catalytic activity/Vol] 19 U/L Normal 13-56 [facility] Comment on above: Performed By: #### L 3400.8000 #### [facility] (refer to report for specific site) refer to report for address and phone number AST [Catalytic activity/Vol] 11 U/L Low 15-37 [facility] Comment on above: Performed By: #### L 3400.8000 #### [facility] (refer to report for specific site) refer to report for address and phone number Bilirubin [Mass/Vol] 0.20 mg/dL Normal 0.20-1.00 [facility] Comment on above: Result Comment: For patients on eltrombopag therapy, use of Dimension [place] TBIL is not recommended. Performed By: #### L 3400.8000 #### [facility] (refer to report for specific site) refer to report for address and phone number Calcium [Mass/Vol] 8.6 mg/dL Normal 8.5-10.1 [facility] Comment on above: Performed By: #### L 3400.8000 #### [facility] (refer to report for specific site) refer to report for address and phone number Chloride [Moles/Vol] 105 mmol/L Normal 98-107 [facility] Comment on above: Performed By: #### L 3400.7999 #### [facility] (refer to report for specific site) refer to report for address and phone number CO2 [Moles/Vol] 29.0 mmol/L Normal 21.0-32.0 [facility] Comment on above: Performed By: #### L 3400.8000 #### [facility] (refer to report for specific site) refer to report for address and phone number Creatinine [Mass/Vol] 0.80 mg/dL Normal 0.55-1.[address] [facility] Comment on above: Result Comment: The validity of the calculated GFR AND GFRAA in patients over 70 years has not been determined. Clinical correlation is essential. Performed By: #### L 3400.8000 #### [facility] (refer to report for specific site) refer to report for address and phone number EST GFR - AA 113 mL/min Normal >60 [facility] Comment on above: Result Comment: Afri can [place] GFR Calc Performed By: #### L 3400.8000 #### [facility] (refer to report for specific site) refer to report for address and phone number GAP 5 Normal 5-15 [facility] Comment on above: Performed By: #### L 3400.8000 #### [facility] (refer to report for specific site) refer to report for address and phone number GFR/1.73 sq M predicted among non-blacks MDRD (S/P/Bld) [Vol rate/Area] 93 mL/min/{1.73_m2} Normal >60 [facility] Comment on above: Result Comment: Non- GFR Calc Performed By: #### L 3400.8000 #### [facility] (refer to report for specific site) refer to report for address and phone number Globulin (S) [Mass/Vol] 3.4 g/dL Normal 2.2-4.2 [facility] Comment on above: Performed By: #### L 3400.8000 #### [facility] (refer to report for specific site) refer to report for address and phone number Glucose [Mass/Vol] 81 mg/dL Normal 74-106 [facility] Comment on above: Result Comment: Frank santos note revised GLUCOSE reference range effective 2017. Performed By: #### L 3400.8000 #### [facility] (refer to report for specific site) refer to report for address and phone number Potassium [Moles/Vol] 3.8 mmol/L Normal 3.5-5.[address] [facility] Comment on above: Performed By: #### L 3400.7999 #### [facility] (refer to report for specific site) refer to report for address and phone number Sodium [Moles/Vol] 139 mmol/L Normal 136-145 [facility] Comment on above: Performed By: #### L 3400.7999 #### [facility] (refer to report for specific site) refer to report for address and phone number T PROT 7.2 g/dL Normal 6.4-8.2 [facility] Comment on above: Performed By: #### L 3400.8000 #### [facility] (refer to report for specific site) refer to report for address and phone number Urea nitrogen [Mass/Vol] 14 mg/dL Normal 7-18 [facility] Comment on above: Performed By: #### L 3400.7999 #### [facility] (refer to report for specific site) refer to report for address and phone number Urea nitrogen [Mass/Vol] 17.4 RATIO Normal 10-20 [facility] Comment on above: Performed By: #### L 3400.8000 #### [facility] (refer to report for specific site) refer to report for address and phone number Quantiferon TB-Gold+on 06-28 QFT MITOGEN ZAYRA > 10.00 Normal . [facility] Comment on above: Performed By: #### L 3400.8000 #### [facility] (refer to report for specific site) refer to report for address and phone number QFT NIL VALUE 0.01 IU/mL Normal . [facility] Comment on above: Performed By: #### L 3400.8000 #### [facility] (refer to report for specific site) refer to report for address and phone number QFT TB GOLD Comment Normal . [facility] Comment on above: Result Comment: The QuantiFERON-TB Gold Plus result is determined by subtracting the Nil value from either TB antigen (Ag) tube. The mitogen tube serves as a control for the test. Performed By: #### L 3400.8000 #### [facility] (refer to report for specific site) refer to report for address and phone number QFT TB POS CRIT Negative Normal Negative [facility] Comment on above: Result Comment: The specimen received for QuantiFERON testing was incubated by the ordering institution. Specific procedures outlined in our Directory of Services and in the package insert for the QuantiFERON Gold (In Tube) test must be followed to enable for proper stimulation of cells for the production of interferon gamma. Performed at: [address] [id number] Creative Services Specialist: Galindo Forte PhD, Phone: [phone] Performed By: #### L 3400.8000 #### [facility] (refer to report for specific site) refer to report for address and phone number QFT TB1+ AG ZAYRA 0.02 IU/mL Normal . [facility] Comment on above: Performed By: #### L 3400.8000 #### [facility] (refer to report for specific site) refer to report for address and phone number QFT TB2+ AG ZAYRA 0.01 IU/mL Normal . [facility] Comment on above: Performed By: #### L 3400.8000 #### [facility] (refer to report for specific site) refer to report for address and phone number CBC W/Diff, Automatedon 10-2 0-2020 Absolute Neut 6.6 X10 3/uL Normal 2.0-7.7 [facility] Comment on above: Performed By: #### L 100.0100 #### [facility] [address] [place], [address] Basophils/100 WBC (Bld) 0.3 % Normal 0-1 [facility] Comment on above: Performed By: #### L 100.0100 #### [facility] [address] [place], [address] Eosinophils/100 WBC (Bld) 0.6 % Normal 0-5 [facility] Comment on above: Performed By: #### L 100.0100 #### [facility] [address] [place], [address] Erythrocyte distribution width (RBC) [Ratio] 11.6 % Normal 11.6-14.6 [facility] Comment on above: Performed By: #### L 100.0100 #### [facility] [address] [place], [address] Hematocrit (Bld) [Volume fraction] 40.0 % Normal 37-47 [facility] Comment on above: Performed By: #### L 100.0100 #### [facility] [address] [place], [address] Hemoglobin (Bld) [Mass/Vol] 13.0 g/dL Normal 12.0-15.0 [facility] Comment on above: Performed By: #### L 100.0100 #### [facility] [address] [place], [address] IM GRAN % 0.400 % Normal 0.0-0.9 [facility] Comment on above: Result Comment: IG% - Immature Granulocytes (promyelocytes, myelocytes and metamyelocytes) > 1% indicates that a LEFT SHIFT is Present. Performed By: #### L 100.0100 #### [facility] [address] [place], [address] Lymphocytes (Bld) [#/Vol] 1.85 X10 3/uL Normal 0.83-4.51 [facility] Comment on above: Performed By: #### L 100.0100 #### [facility] [address] [place], [address] Lymphocytes/100 WBC (Bld) 20.5 % Normal 19-41 [facility] Comment on above: Performed By: #### L 100.0100 #### [facility] [address] [place], [address] MCH (RBC) [Entitic mass] 27.3 pg Normal 27.0-32.0 [facility] Comment on above: Performed By: #### L 100.0100 #### [facility] [address] [place], [address] MCHC (RBC) [Mass/Vol] 32.5 g/dL Normal 32-[address] [facility] Comment on above: Performed By: #### L 100.0100 #### [facility] [address] [place], [address] MCV (RBC) [Entitic vol] 84.0 fL Normal 81-99 [facility] Comment on above: Performed By: #### L 100.0100 #### [facility] [address] [place], [address] Monocytes/100 WBC (Bld) 4.9 % Normal 0-10 [facility] Comment on above: Performed By: #### L 100.0100 #### [facility] [address] [place], [address] Neutrophils/100 WBC (Bld) 73.3 % High 47-70 [facility] Comment on above: Performed By: #### L 100.0100 #### [facility] [address] [place], [address] NRBC, FLAGGED 0 % Normal 0-5 [facility] Comment on above: Performed By: #### L 100.0100 #### [facility] [address] [place], [address] Platelet mean volume (Bld) [Entitic vol] 10.7 fL Normal 6.2-12.0 [facility] Comment on above: Performed By: #### L 100.0100 #### [facility] [address] [place], [address] Platelets (Bld) [#/Vol] 339 10*3/uL Normal 150-450 [facility] Comment on above: Performed By: #### L 100.0100 #### [facility] [address] [place], [address] RBC (Bld) [#/Vol] 4.76 M/mm3 Normal 4.2-5.4 [facility] Comment on above: Performed By: #### L 100.0100 #### [facility] [address] [place], [address] RDW SD 35.3 fl Normal 35.1-43.9 [facility] Comment on above: Performed By: #### L 100.0100 #### [facility] [address] [place], [address] WBC (Bld) [#/Vol] 9.0 10*3/uL Normal 4.4-11.0 [facility] Comment on above: Performed By: #### L 100.0100 #### [facility] [address] [place], [address] Comprehensive Metabolic Prof [facility] 06-25-2020 Albumin [Mass/Vol] 4.0 g/dL Normal 3.2-5.0 [facility] Comment on above: Performed By: #### L 500.4050 #### [facility] [address] [place], [address] Albumin/Globulin [Mass ratio] 1.1 {ratio} Normal 0.9-2.4 [facility] Comment on above: Performed By: #### L 500.4050 #### [facility] [address] [place], [address] ALK P 69 U/L Normal 45-117 [facility] Comment on above: Performed By: #### L 500.4050 #### [facility] [address] [place], [address] ALT [Catalytic activity/Vol] 17 U/L Normal 13-56 [facility] Comment on above: Performed By: #### L 500.4050 #### [facility] [address] [place], [address] AST [Catalytic activity/Vol] 11 U/L Low 15-37 [facility] Comment on above: Performed By: #### L 500.4050 #### [facility] [address] [place], [address] Bilirubin [Mass/Vol] 0.40 mg/dL Normal 0.20-1.00 [facility] Comment on above: Result Comment: For patients on eltrombopag therapy, use of Dimension [place] TBIL is not recommended. Performed By: #### L 500.4050 #### [facility] [address] [place], [address] Calcium [Mass/Vol] 9.1 mg/dL Normal 8.5-10.1 [facility] Comment on above: Performed By: #### L 500.4050 #### [facility] [address] [place], [address] Chloride [Moles/Vol] 105 mmol/L Normal 98-107 [facility] Comment on above: Performed By: #### L 500.4050 #### [facility] [address] [place], [address] CO2 [Moles/Vol] 30.0 mmol/L Normal 21.0-32.0 [facility] Comment on above: Performed By: #### L 500.4050 #### [facility] [address] [place], [address] Creatinine [Mass/Vol] 0.67 mg/dL Normal 0.55-1.[address] [facility] Comment on above: Result Comment: The validity of the calculated GFR AND GFRAA in patients over 70 years has not been determined. Clinical correlation is essential. Performed By: #### L 500.4050 #### [facility] [address] [place], [address] EST GFR - AA 139 mL/min Normal >60 [facility] Comment on above: Result Comment: Afri can [place] GFR Calc Performed By: #### L 500.4050 #### [facility] [address] [place], [address] GAP 5 Normal 5-15 [facility] Comment on above: Performed By: #### L 500.4050 #### [facility] [address] [place], [address] GFR/1.73 sq M predicted among non-blacks MDRD (S/P/Bld) [Vol rate/Area] 115 mL/min/{1.73_m2} Normal >60 [facility] Comment on above: Result Comment: Non- GFR Calc Performed By: #### L 500.4050 #### [facility] [address] [place], [address] Globulin (S) [Mass/Vol] 3.5 g/dL Normal 2.2-4.2 [facility] Comment on above: Performed By: #### L 500.4050 #### [facility] [address] [place], [address] Glucose [Mass/Vol] 83 mg/dL Normal 74-106 [facility] Comment on above: Result Comment: Frank santos note revised GLUCOSE reference range effective 2017. Performed By: #### L 500.4050 #### [facility] [address] [place], [address] Potassium [Moles/Vol] 3.5 mmol/L Normal 3.5-5.[address] [facility] Comment on above: Performed By: #### L 500.4050 #### [facility] [address] [place], [address] Sodium [Moles/Vol] 140 mmol/L Normal 136-145 [facility] Comment on above: Performed By: #### L 500.4050 #### [facility] [address] [place], [address] T PROT 7.5 g/dL Normal 6.4-8.2 [facility] Comment on above: Performed By: #### L 500.4050 #### [facility] [address] [place], [address] Urea nitrogen [Mass/Vol] 11.9 RATIO Normal 10-20 [facility] Comment on above: Performed By: #### L 500.4050 #### [facility] [address] [place], [address] Urea nitrogen [Mass/Vol] 8 mg/dL Normal 7-18 [facility] Comment on above: Performed By: #### L 500.4050 #### [facility] [address] [place], [address] HCG QUALITATIVE, URINEon HCG ( test) Ql (U) Negative [facility] Comment on above: Testing performed at [place], [place] [address] URINALYSIS, MACROon 05-30-20 20 Bilirubin Ql (U) [...] System Comment on above: Testing performed at [place], [place] [address] Nitrite Ql (U) Negative NEGATIVE [facility] System pH (U) 5.5 [pH] [facility] Protein Ql (U) Negative NEGATIVE mg/dl [facility] Specific gravity (U) [Rel density] 1.025 [facility] Urobilinogen (U) [Mass/Vol] 0.2 [facility] URINE HCG QUALon 05-30-2020 Beta HCG ( test) Ql (U) Negative Normal [facility] Comment on above: Result Comment: Test ing performed at [place] [address] Performed By: #### U HCGT, UMAC #### [place] [address] URINE MACROSCOPICon 05-30-20 20 Bilirubin Ql (U) Negative Normal NEGATIVE [facility] Comment on above: Performed By: #### U HCGT, UMAC #### [place] [address] Clarity (U) CLEAR Normal CLEAR [facility] Comment on above: Performed By: #### U HCGT, UMAC #### [place] [address] Color (U) YELLOW Normal YELLOW [facility] Comment on above: Performed By: #### U HCGT, UMAC #### [place] [address] Glucose Ql (U) Negative Normal NEGATIVE [facility] Comment on above: Performed By: #### U HCGT, UMAC #### [place] [address] pH (U) 5.5 [pH] Normal 5.0-7.0 [facility] Comment on above: Performed By: #### U HCGT, UMAC #### [place] [address] Protein (U) [Mass/Vol] Negative Normal NEGATIVE [facility] Comment on above: Performed By: #### U HCGT, UMAC #### [place] [address] URINE HEMOGLOBIN Negative Normal NEGATIVE [facility] Comment on above: Performed By: #### U HCGT, UMAC #### Testing performed at [facility] [address] [place] [address] URINE KETONE Negative Normal NEGATIVE [facility] Comment on above: Performed By: #### U HCGT, UMAC #### Testing performed at [facility] [address] [place] [address] URINE LEUKOTEST Negative Normal NEGATIVE [facility] Comment on above: Result Comment: Test ing performed at [place] [address] Performed By: #### U HCGT, UMAC #### Testing performed at [place] [id number] URINE NITRATES Negative Normal NEGATIVE [facility] Comment on above: Performed By: #### U HCGT, UMAC #### Testing performed at [address] [address] URINE SPEC GRAVITY 1.025 Normal 1.010-1.025 [facility] Comment on above: Performed By: #### U HCGT, UMAC #### Testing performed at [address] [address] Urobilinogen Qn (U) 0.2 {Edna'U}/dL Normal 0.2-1.0 [facility] Comment on above: Performed By: #### U HCGT, UMAC #### Testing performed at [place] [id number] COVID-19, MOLECULARon 2019 SARS-COV-2 RNA (NIHARIKA) Not Detected Normal Not Detected [facility] Comment on above: Result Comment: This test [...] at the following links: For Healthcare Providers: https://www.fda.gov/media/982956/download For Patients: https://www.fda.gov/media/841991/download Performed By: #### L [id number] #### [facility] [place] [address] Homero Kaur M.D. [id number] CBC W/Diff, Automatedon - Absolute Neut 4.6 X10 3/uL Normal 2.0-7.7 [facility] Comment on above: Performed By: #### L 100.0100 #### [facility] [address] [place], [address] Basophils/100 WBC (Bld) 0.4 % Normal 0-1 [facility] Comment on above: Performed By: #### L 100.0100 #### [facility] [address] [place], [address] Eosinophils/100 WBC (Bld) 1.6 % Normal 0-5 [facility] Comment on above: Performed By: #### L 100.0100 #### [facility] [address] [place], [address] Erythrocyte distribution width (RBC) [Ratio] 12.5 % Normal 11.6-14.6 [facility] Comment on above: Performed By: #### L 100.0100 #### [facility] [address] [place], [address] Hematocrit (Bld) [Volume fraction] 40.2 % Normal 37-47 [facility] Comment on above: Performed By: #### L 100.0100 #### [facility] [address] [place], [address] Hemoglobin (Bld) [Mass/Vol] 13.0 g/dL Normal 12.0-15.0 [facility] Comment on above: Performed By: #### L 100.0100 #### [facility] [address] [place], [address] IM GRAN % 0.300 % Normal 0.0-0.9 [facility] Comment on above: Result Comment: IG% - Immature Granulocytes (promyelocytes, myelocytes and metamyelocytes) > 1% indicates that a LEFT SHIFT is Present. Performed By: #### L 100.0100 #### [facility] [address] [place], [address] Lymphocytes (Bld) [#/Vol] 1.77 X10 3/uL Normal 0.83-4.51 [facility] Comment on above: Performed By: #### L 100.0100 #### [facility] [address] [place], [address] Lymphocytes/100 WBC (Bld) 25.4 % Normal 19-41 [facility] Comment on above: Performed By: #### L 100.0100 #### [facility] [address] [place], [address] MCH (RBC) [Entitic mass] 28.1 pg Normal 27.0-32.0 [facility] Comment on above: Performed By: #### L 100.0100 #### [facility] [address] [place], [address] MCHC (RBC) [Mass/Vol] 32.3 g/dL Normal 32-[address] [facility] Comment on above: Performed By: #### L 100.0100 #### [facility] [address] [place], [address] MCV (RBC) [Entitic vol] 86.8 fL Normal 81-99 [facility] Comment on above: Performed By: #### L 100.0100 #### [facility] [address] [place], [address] Monocytes/100 WBC (Bld) 6.6 % Normal 0-10 [facility] Comment on above: Performed By: #### L 100.0100 #### [facility] [address] [place], [address] Neutrophils/100 WBC (Bld) 65.7 % Normal 47-70 [facility] Comment on above: Performed By: #### L 100.0100 #### [facility] [address] [place], [address] NRBC, FLAGGED 0 % Normal 0-5 [facility] Comment on above: Performed By: #### L 100.0100 #### [facility] [address] [place], [address] Platelet mean volume (Bld) [Entitic vol] 10.7 fL Normal 6.2-12.0 [facility] Comment on above: Performed By: #### L 100.0100 #### [facility] [address] [place], [address] Platelets (Bld) [#/Vol] 288 10*3/uL Normal 150-450 [facility] Comment on above: Performed By: #### L 100.0100 #### [facility] [address] [place], [address] RBC (Bld) [#/Vol] 4.63 M/mm3 Normal 4.2-5.4 [facility] Comment on above: Performed By: #### L 100.0100 #### [facility] [address] [place], [address] RDW SD 38.6 fl Normal 35.1-43.9 [facility] Comment on above: Performed By: #### L 100.0100 #### [facility] [address] [place], [address] WBC (Bld) [#/Vol] 7.0 10*3/uL Normal 4.4-11.0 [facility] Comment on above: Performed By: #### L 100.0100 #### [facility] [address] [place], [address] [facility] Albumin [Mass/Vol] 3.7 g/dL Normal 3.2-5.0 [facility] Comment on above: Performed By: #### L 500.4050 #### [facility] [address] [place], [address] Albumin/Globulin [Mass ratio] 1.1 {ratio} Normal 0.9-2.4 [facility] Comment on above: Performed By: #### L 500.4050 #### [facility] [address] [place], [address] ALK P 60 U/L Normal 45-117 [facility] Comment on above: Performed By: #### L 500.4050 #### [facility] [address] [place], [address] ALT [Catalytic activity/Vol] 21 U/L Normal 13-56 [facility] Comment on above: Performed By: #### L 500.4050 #### [facility] [address] [place], [address] AST [Catalytic activity/Vol] 12 U/L Low 15-37 [facility] Comment on above: Performed By: #### L 500.4050 #### [facility] [address] [place], [address] Bilirubin [Mass/Vol] 0.40 mg/dL Normal 0.20-1.00 [facility] Comment on above: Result Comment: For patients on eltrombopag therapy, use of Dimension [place] TBIL is not recommended. Performed By: #### L 500.4050 #### [facility] [address] [place], [address] Calcium [Mass/Vol] 8.8 mg/dL Normal 8.5-10.1 [facility] Comment on above: Performed By: #### L 500.4050 #### [facility] [address] [place], [address] Chloride [Moles/Vol] 105 mmol/L Normal 98-107 [facility] Comment on above: Performed By: #### L 500.4050 #### [facility] [address] [place], [address] CO2 [Moles/Vol] 28.0 mmol/L Normal 21.0-32.0 [facility] Comment on above: Performed By: #### L 500.4050 #### [facility] [address] [place], [address] Creatinine [Mass/Vol] 0.74 mg/dL Normal 0.55-1.[address] [facility] Comment on above: Result Comment: The validity of the calculated GFR AND GFRAA in patients over 70 years has not been determined. Clinical correlation is essential. Performed By: #### L 500.4050 #### [facility] [address] [place], [address] EST GFR - AA 125 mL/min Normal >60 [facility] Comment on above: Result Comment: Afri can [place] GFR Calc Performed By: #### L 500.4050 #### [facility] [address] [place], [address] GAP 6 Normal 5-15 [facility] Comment on above: Performed By: #### L 500.4050 #### [facility] [address] [place], [address] GFR/1.73 sq M predicted among non-blacks MDRD (S/P/Bld) [Vol rate/Area] 103 mL/min/{1.73_m2} Normal >60 [facility] Comment on above: Result Comment: Non- GFR Calc Performed By: #### L 500.4050 #### [facility] [address] [place], [address] Globulin (S) [Mass/Vol] 3.4 g/dL Normal 2.2-4.2 [facility] Comment on above: Performed By: #### L 500.4050 #### [facility] [address] [place], [address] Glucose [Mass/Vol] 76 mg/dL Normal 74-106 [facility] Comment on above: Result Comment: Frank santos note revised GLUCOSE reference range effective 2017. Performed By: #### L 500.4050 #### [facility] [address] [place], [address] Potassium [Moles/Vol] 3.6 mmol/L Normal 3.5-5.[address] [facility] Comment on above: Performed By: #### L 500.4050 #### [facility] [address] [place], [address] Sodium [Moles/Vol] 139 mmol/L Normal 136-145 [facility] Comment on above: Performed By: #### L 500.4050 #### [facility] [address] [place], [address] T PROT 7.1 g/dL Normal 6.4-8.2 [facility] Comment on above: Performed By: #### L 500.4050 #### [facility] [address] [place], [address] Urea nitrogen [Mass/Vol] 9 mg/dL Normal 7-18 [facility] Comment on above: Performed By: #### L 500.4050 #### [facility] [address] [place], [address] Urea nitrogen [Mass/Vol] 12.2 RATIO Normal 10-20 [facility] Comment on above: Performed By: #### L 500.4050 #### [facility] [address] [place], [address] CBC W/Diff, Automatedon 04-0 -2019 Absolute Neut 5.3 X10 3/uL Normal 2.0-7.7 [facility] Comment on above: Performed By: #### L 100.0100 #### [facility] [address] [place], [address] Basophils/100 WBC (Bld) 0.3 % Normal 0-1 [facility] Comment on above: Performed By: #### L 100.0100 #### [facility] [address] [place], [address] Eosinophils/100 WBC (Bld) 1.0 % Normal 0-5 [facility] Comment on above: Performed By: #### L 100.0100 #### [facility] [address] [place], [address] Erythrocyte distribution width (RBC) [Ratio] 12.3 % Normal 11.6-14.6 [facility] Comment on above: Performed By: #### L 100.0100 #### [facility] [address] [place], [address] Hematocrit (Bld) [Volume fraction] 39.4 % Normal 37-47 [facility] Comment on above: Performed By: #### L 100.0100 #### [facility] [address] [place], [address] Hemoglobin (Bld) [Mass/Vol] 12.9 g/dL Normal 12.0-15.0 [facility] Comment on above: Performed By: #### L 100.0100 #### [facility] [address] [place], [address] IM GRAN % 1.000 % High 0.0-0.9 [facility] Comment on above: Result Comment: IG% - Immature Granulocytes (promyelocytes, myelocytes and metamyelocytes) > 1% indicates that a LEFT SHIFT is Present. Performed By: #### L 100.0100 #### [facility] [address] [place], [address] Lymphocytes (Bld) [#/Vol] 1.86 X10 3/uL Normal 0.83-4.51 [facility] Comment on above: Performed By: #### L 100.0100 #### [facility] [address] [place], [address] Lymphocytes/100 WBC (Bld) 23.9 % Normal 19-41 [facility] Comment on above: Performed By: #### L 100.0100 #### [facility] [address] [place], [address] MCH (RBC) [Entitic mass] 28.0 pg Normal 27.0-32.0 [facility] Comment on above: Performed By: #### L 100.0100 #### [facility] [address] [place], [address] MCHC (RBC) [Mass/Vol] 32.7 g/dL Normal 32-[address] [facility] Comment on above: Performed By: #### L 100.0100 #### [facility] [address] [place], [address] MCV (RBC) [Entitic vol] 85.5 fL Normal 81-99 [facility] Comment on above: Performed By: #### L 100.0100 #### [facility] [address] [place], [address] Monocytes/100 WBC (Bld) 6.0 % Normal 0-10 [facility] Comment on above: Performed By: #### L 100.0100 #### [facility] [address] [place], [address] Neutrophils/100 WBC (Bld) 67.8 % Normal 47-70 [facility] Comment on above: Performed By: #### L 100.0100 #### [facility] [address] [place], [address] NRBC, FLAGGED 0 % Normal 0-5 [facility] Comment on above: Performed By: #### L 100.0100 #### [facility] [address] [place], [address] Platelet mean volume (Bld) [Entitic vol] 10.4 fL Normal 6.2-12.0 [facility] Comment on above: Performed By: #### L 100.0100 #### [facility] [address] [place], [address] Platelets (Bld) [#/Vol] 264 10*3/uL Normal 150-450 [facility] Comment on above: Performed By: #### L 100.0100 #### [facility] [address] [place], [address] RBC (Bld) [#/Vol] 4.61 M/mm3 Normal 4.2-5.4 [facility] Comment on above: Performed By: #### L 100.0100 #### [facility] [address] [place], [address] RDW SD 37.8 fl Normal 35.1-43.9 [facility] Comment on above: Performed By: #### L 100.0100 #### [facility] [address] [place], [address] WBC (Bld) [#/Vol] 7.8 10*3/uL Normal 4.4-11.0 [facility] Comment on above: Performed By: #### L 100.0100 #### [facility] [address] [place], [address] Comprehensive Metabolic Prof ilon 12-14-2019 Albumin [Mass/Vol] 3.9 g/dL Normal 3.2-5.0 [facility] Comment on above: Performed By: #### L 500.4050 #### [facility] [address] [place], [address] Albumin/Globulin [Mass ratio] 1.2 {ratio} Normal 0.9-2.4 [facility] Comment on above: Performed By: #### L 500.4050 #### [facility] [address] [place], [address] ALK P 65 U/L Normal 45-117 [facility] Comment on above: Performed By: #### L 500.4050 #### [facility] [address] [place], [address] ALT [Catalytic activity/Vol] 20 U/L Normal 13-56 [facility] Comment on above: Performed By: #### L 500.4050 #### [facility] [address] [place], [address] AST [Catalytic activity/Vol] 11 U/L Low 15-37 [facility] Comment on above: Performed By: #### L 500.4050 #### [facility] [address] [place], [address] Bilirubin [Mass/Vol] 0.40 mg/dL Normal 0.20-1.00 [facility] Comment on above: Result Comment: For patients on eltrombopag therapy, use of Dimension [place] TBIL is not recommended. Performed By: #### L 500.4050 #### [facility] [address] [place], [address] Calcium [Mass/Vol] 8.9 mg/dL Normal 8.5-10.1 [facility] Comment on above: Performed By: #### L 500.4050 #### [facility] [address] [place], [address] Chloride [Moles/Vol] 105 mmol/L Normal 98-107 [facility] Comment on above: Performed By: #### L 500.4050 #### [facility] [address] [place], [address] CO2 [Moles/Vol] 30.0 mmol/L Normal 21.0-32.0 [facility] Comment on above: Performed By: #### L 500.4050 #### [facility] [address] [place], [address] Creatinine [Mass/Vol] 0.69 mg/dL Normal 0.55-1.[address] [facility] Comment on above: Result Comment: The validity of the calculated GFR AND GFRAA in patients over 70 years has not been determined. Clinical correlation is essential. Performed By: #### L 500.4050 #### [facility] [address] [place], [address] EST GFR - AA 135 mL/min Normal >60 [facility] Comment on above: Result Comment: Afri can [place] GFR Calc Performed By: #### L 500.4050 #### [facility] [address] [place], [address] GAP 4 Low 5-15 [facility] Comment on above: Performed By: #### L 500.4050 #### [facility] [address] [place], [address] GFR/1.73 sq M predicted among non-blacks MDRD (S/P/Bld) [Vol rate/Area] 112 mL/min/{1.73_m2} Normal >60 [facility] Comment on above: Result Comment: Non- GFR Calc Performed By: #### L 500.4050 #### [facility] [address] [place], [address] Globulin (S) [Mass/Vol] 3.2 g/dL Normal 2.2-4.2 [facility] Comment on above: Performed By: #### L 500.4050 #### [facility] [address] [place], [address] Glucose [Mass/Vol] 81 mg/dL Normal 74-106 [facility] Comment on above: Result Comment: Frank santos note revised GLUCOSE reference range effective 2017. Performed By: #### L 500.4050 #### [facility] [address] [place], [address] Potassium [Moles/Vol] 3.9 mmol/L Normal 3.5-5.[address] [facility] Comment on above: Performed By: #### L 500.4050 #### [facility] [address] [place], [address] Sodium [Moles/Vol] 139 mmol/L Normal 136-145 [facility] Comment on above: Performed By: #### L 500.4050 #### [facility] [address] [place], [address] T PROT 7.1 g/dL Normal 6.4-8.2 [facility] Comment on above: Performed By: #### L 500.4050 #### [facility] [address] [place], [address] Urea nitrogen [Mass/Vol] 14.5 RATIO Normal 10-20 [facility] Comment on above: Performed By: #### L 500.4050 #### [facility] [address] [place], [address] Urea nitrogen [Mass/Vol] 10 mg/dL Normal 7-18 [facility] Comment on above: Performed By: #### L 500.4050 #### [facility] [address] [place], [address] CBC W/Diff, Automatedon 09-06 Absolute Neut 5.0 X10 3/uL Normal 2.0-7.7 [facility] Comment on above: Performed By: #### L 100.0100 #### [facility] [address] [place], [address] Basophils/100 WBC (Bld) 0.4 % Normal 0-1 [facility] Comment on above: Performed By: #### L 100.0100 #### [facility] [address] [place], [address] Eosinophils/100 WBC (Bld) 1.1 % Normal 0-5 [facility] Comment on above: Performed By: #### L 100.0100 #### [facility] [address] [place], [address] Erythrocyte distribution width (RBC) [Ratio] 12.2 % Normal 11.6-14.6 [facility] Comment on above: Performed By: #### L 100.0100 #### [facility] [address] [place], [address] Hematocrit (Bld) [Volume fraction] 39.5 % Normal 37-47 [facility] Comment on above: Performed By: #### L 100.0100 #### [facility] [address] [place], [address] Hemoglobin (Bld) [Mass/Vol] 13.0 g/dL Normal 12.0-15.0 [facility] Comment on above: Performed By: #### L 100.0100 #### [facility] [address] [place], [address] IM GRAN % 0.300 % Normal 0.0-0.9 [facility] Comment on above: Result Comment: IG% - Immature Granulocytes (promyelocytes, myelocytes and metamyelocytes) > 1% indicates that a LEFT SHIFT is Present. Performed By: #### L 100.0100 #### [facility] [address] [place], [address] Lymphocytes (Bld) [#/Vol] 1.95 X10 3/uL Normal 0.83-4.51 [facility] Comment on above: Performed By: #### L 100.0100 #### [facility] [address] [place], [address] Lymphocytes/100 WBC (Bld) 26.0 % Normal 19-41 [facility] Comment on above: Performed By: #### L 100.0100 #### [facility] [address] [place], [address] MCH (RBC) [Entitic mass] 27.8 pg Normal 27.0-32.0 [facility] Comment on above: Performed By: #### L 100.0100 #### [facility] [address] [place], [address] MCHC (RBC) [Mass/Vol] 32.9 g/dL Normal 32-[address] [facility] Comment on above: Performed By: #### L 100.0100 #### [facility] [address] [place], [address] MCV (RBC) [Entitic vol] 84.4 fL Normal 81-99 [facility] Comment on above: Performed By: #### L 100.0100 #### [facility] [address] [place], [address] Monocytes/100 WBC (Bld) 6.1 % Normal 0-10 [facility] Comment on above: Performed By: #### L 100.0100 #### [facility] [address] [place], [address] Neutrophils/100 WBC (Bld) 66.1 % Normal 47-70 [facility] Comment on above: Performed By: #### L 100.0100 #### [facility] [address] [place], [address] NRBC, FLAGGED 0 % Normal 0-5 [facility] Comment on above: Performed By: #### L 100.0100 #### [facility] [address] [place], [address] Platelet mean volume (Bld) [Entitic vol] 10.7 fL Normal 6.2-12.0 [facility] Comment on above: Performed By: #### L 100.0100 #### [facility] [address] [place], [address] Platelets (Bld) [#/Vol] 302 10*3/uL Normal 150-450 [facility] Comment on above: Performed By: #### L 100.0100 #### [facility] [address] [place], [address] RBC (Bld) [#/Vol] 4.68 M/mm3 Normal 4.2-5.4 [facility] Comment on above: Performed By: #### L 100.0100 #### [facility] [address] [place], [address] RDW SD 36.5 fl Normal 35.1-43.9 [facility] Comment on above: Performed By: #### L 100.0100 #### [facility] [address] [place], [address] WBC (Bld) [#/Vol] 7.5 10*3/uL Normal 4.4-11.0 [facility] Comment on above: Performed By: #### L 100.0100 #### [facility] [address] [place], [address] Comprehensive Metabolic [facility] 09-20-2019 Albumin [Mass/Vol] 3.9 g/dL Normal 3.2-5.0 [facility] Comment on above: Performed By: #### L 500.4050 #### [facility] [address] [place], [address] Albumin/Globulin [Mass ratio] 1.2 {ratio} Normal 0.9-2.4 [facility] Comment on above: Performed By: #### L 500.4050 #### [facility] [address] [place], [address] ALK P 66 U/L Normal 45-117 [facility] Comment on above: Performed By: #### L 500.4050 #### [facility] [address] [place], [address] ALT [Catalytic activity/Vol] 18 U/L Normal 13-56 [facility] Comment on above: Performed By: #### L 500.4050 #### [facility] [address] [place], [address] AST [Catalytic activity/Vol] 10 U/L Low 15-37 [facility] Comment on above: Performed By: #### L 500.4050 #### [facility] [address] [place], [address] Bilirubin [Mass/Vol] 0.40 mg/dL Normal 0.20-1.00 [facility] Comment on above: Performed By: #### L 500.4050 #### [facility] [address] [place], [address] Calcium [Mass/Vol] 9.4 mg/dL Normal 8.5-10.1 [facility] Comment on above: Performed By: #### L 500.4050 #### [facility] [address] [place], [address] Chloride [Moles/Vol] 108 mmol/L High 98-107 [facility] Comment on above: Performed By: #### L 500.4050 #### [facility] [address] [place], [address] CO2 [Moles/Vol] 28.0 mmol/L Normal 21.0-32.0 [facility] Comment on above: Performed By: #### L 500.4050 #### [facility] [address] [place], [address] Creatinine [Mass/Vol] 0.85 mg/dL Normal 0.55-1.[address] [facility] Comment on above: Result Comment: The validity of the calculated GFR AND GFRAA in patients over 70 years has not been determined. Clinical correlation is essential. Performed By: #### L 500.4050 #### [facility] [address] [place], [address] EST GFR - AA 106 mL/min Normal >60 [facility] Comment on above: Result Comment: Afri can Gabonese GFR Calc Performed By: #### L 500.4050 #### [facility] [address] [place], [address] GAP 3 Low 5-15 [facility] Comment on above: Performed By: #### L 500.4050 #### [facility] [address] [place], [address] GFR/1.73 sq M predicted among non-blacks MDRD (S/P/Bld) [Vol rate/Area] 88 mL/min/{1.73_m2} Normal >60 [facility] Comment on above: Result Comment: Non- GFR Calc Performed By: #### L 500.4050 #### [facility] [address] [place], [address] Globulin (S) [Mass/Vol] 3.2 g/dL Normal 2.2-4.2 [facility] Comment on above: Performed By: #### L 500.4050 #### [facility] [address] [place], [address] Glucose [Mass/Vol] 64 mg/dL Low 74-106 [facility] Comment on above: Result Comment: Frank santos note revised GLUCOSE reference range effective 2017. Performed By: #### L 500.4050 #### [facility] [address] [place], [address] Potassium [Moles/Vol] 4.2 mmol/L Normal 3.5-5.[address] [facility] Comment on above: Performed By: #### L 500.4050 #### [facility] [address] [place], [address] Sodium [Moles/Vol] 139 mmol/L Normal 136-145 [facility] Comment on above: Performed By: #### L 500.4050 #### [facility] [address] [place], [address] T PROT 7.1 g/dL Normal 6.4-8.2 [facility] Comment on above: Performed By: #### L 500.4050 #### [facility] [address] [place], [address] Urea nitrogen [Mass/Vol] 11 mg/dL Normal 7-18 [facility] Comment on above: Performed By: #### L 500.4050 #### [facility] [address] [place], [address] Urea nitrogen [Mass/Vol] 12.9 RATIO Normal 10-20 [facility] Comment on above: Performed By: #### L 500.4050 #### [facility] [address] [place], [address] Lab Miscellaneouson 02-01-20 19 Status See Ref Lab Report Normal [facility] Comment on above: Order Comment: [place] [id number] Performed By: #### 1 [id number] #### MI[facility] Send Outs Subsection [facility] [place] [address] Status See Ref Lab Report Normal [facility] Comment on above: Order Comment: Anti CCP [id number] Performed By: #### 1 [id number] #### [facility] Send Outs Subsection [facility] [place] [address] RF Quanton 01-28-2019 RA Latex Turbid <10.0 Normal 0.0-13.9 [facility] Comment on above: Result Comment: Perf ormed At: [facility] [address] [id number] Reanna Medley PhD Ph:[phone] Performed By: #### 1 [id number] #### [facility] Send Outs Subsection [address] [place] [address] Auto Diffon 01-27-2019 Basophils (Bld) [#/Vol] 0.0 E3/mcL Normal 0.0-0.2 [facility] Comment on above: Order Comment: Order Added by Discern Expert. Performed By: #### 2 [id number] #### [facility] [address] [place] [address] Basophils/100 WBC (Bld) 0.5 % Normal 0.0-2.0 [facility] Comment on above: Order Comment: Order Added by Discern Expert. Performed By: #### 2 [id number] #### [facility] Rem[facility] [address] [place] [address] Eos Absolute 0.1 E3/mcL Normal 0.0-0.7 [facility] Comment on above: Order Comment: Order Added by Discern Expert. Performed By: #### 2 [id number] #### [facility] Rem[facility] [address] [place] [address] Eosinophils/100 WBC (Bld) 1.8 % Normal 0.0-11.0 [facility] Comment on above: Order Comment: Order Added by Discern Expert. Performed By: #### 2 [id number] #### [facility] [address] [place] [address] Lymphocytes (Bld) [#/Vol] 1.5 E3/mcL Normal 1.2-3.4 [facility] Comment on above: Order Comment: Order Added by Discern Expert. Performed By: #### 2 905802 #### [facility] [address] [place] [address] Lymphocytes/100 WBC (Bld) 32.6 % Normal 20.0-55.0 [facility] Comment on above: Order Comment: Order Added by Discern Expert. Performed By: #### 2 606156 #### [facility] RemHemo [address] [place] [address] Harper Absolute 0.3 E3/mcL Normal 0.0-0.7 [facility] Comment on above: Order Comment: Order Added by Discern Expert. Performed By: #### 2 [id number] #### MIYA SalcedoHemo [address] [place] [address] Monocytes/100 WBC (Bld) 7.2 % Normal 0.0-10.0 [facility] Comment on above: Order Comment: Order Added by Discern Expert. Performed By: #### 2 590668 #### [facility] SalcedoHemo [address] [place] [address] Neutro Absolute 2.7 E3/mcL Normal 1.4-6.5 [facility] Comment on above: Order Comment: Order Added by Discern Expert. Performed By: #### 2 269136 #### [facility] RemHemo [address] [place] [address] Neutro Auto 57.9 % Normal 37.0-75.0 [facility] Comment on above: Order Comment: Order Added by Discern Expert. Performed By: #### 2 575281 #### MIYA SalcedoHemo [facility] [place] [address] CBC w/ Auto Diffon 9 Erythrocyte distribution width (RBC) [Ratio] 12.5 % Normal 11.5-14.5 [facility] Comment on above: Performed By: #### 2 [id number] #### MI[facility] SalcedoHemo [address] [place] [address] Hematocrit (Bld) [Volume fraction] 38.8 % Normal 36.0-48.0 [facility] Comment on above: Performed By: #### 2 904301 #### [facility] SalcedoHemo [address] [place] [address] Hemoglobin (Bld) [Mass/Vol] 13.3 g/dL Normal 12.0-16.0 [facility] Comment on above: Performed By: #### 2 530226 #### [facility] SalcedoHemo [address] [place] [address] MCH (RBC) [Entitic mass] 27.7 pg Normal 27.0-31.0 [facility] Comment on above: Performed By: #### 2 848996 #### [facility] SalcedoHemo [address] [place] [address] MCHC (RBC) [Mass/Vol] 34.3 g/dL Normal 33.0-37.0 [facility] Comment on above: Performed By: #### 2 374429 #### MIYA SalcedoHemo [facility] [place] [address] MCV (RBC) [Entitic vol] 80.7 fL Normal 78.0-100.0 [facility] Comment on above: Performed By: #### 2 433521 #### MIYA DenisseHemo [facility] [place] [address] Platelet mean volume (Bld) [Entitic vol] 8.5 fL Normal 7.4-11.0 [facility] Comment on above: Performed By: #### 2 101185 #### MIYA DenisseHemo [facility] [place] [address] Platelets (Bld) [#/Vol] 303 E3/mcL Normal 130-400 [facility] Comment on above: Performed By: #### 2 436009 #### [facility] Rem[facility] [address] [place] [address] RBC (Bld) [#/Vol] 4.80 E6/mcL Normal 3.90-5.40 [facility] Comment on above: Performed By: #### 2 815101 #### MIYA DenisseHemo [address] [place] [address] WBC (Bld) [#/Vol] 4.6 E3/mcL Normal 3.6-11.0 [facility] Comment on above: Performed By: #### 2 297779 #### [facility] RemHemo [address] [place] [address] CMPon 01-27-2019 Albumin [Mass/Vol] 4.1 g/dL Normal 3.4-5.0 [facility] Comment on above: Performed By: #### 2 [id number] #### MI[facility] [employer] [address] [place] [address] Albumin/Globulin [Mass ratio] 1.4 {ratio} Normal 1.1-1.9 [facility] Comment on above: Performed By: #### 2 271142 #### [facility] [employer] [address] [place] [address] Alk Phos 81 Int._Unit/L Normal 33-110 [facility] Comment on above: Performed By: #### 2 679519 #### [facility] [employer] [address] [place] [address] ALT [Catalytic activity/Vol] 10 Int._Unit/L Normal 7-45 [facility] Comment on above: Performed By: #### 2 262884 #### [facility] [employer] [address] [place] [address] Anion gap [Moles/Vol] 9 mmol/L Low 10-20 [facility] Comment on above: Performed By: #### 2 [id number] #### [facility] [employer] [address] [place] [address] AST [Catalytic activity/Vol] 13 Int._Unit/L Normal 9-39 [facility] Comment on above: Performed By: #### 2 762998 #### [facility] [employer] [address] [place] [address] Bili Total 0.36 mg/dL Normal 0.00-1.20 [facility] Comment on above: Performed By: #### 2 992363 #### [facility] [employer] [address] [place] [address] Calcium [Mass/Vol] 9.6 mg/dL Normal 8.6-10.3 [facility] Comment on above: Performed By: #### 2 870827 #### [facility] [employer] [address] [place] [address] Chloride [Moles/Vol] 106 mmol/L Normal 98-107 [facility] Comment on above: Performed By: #### 2 081623 #### [facility] [employer] [address] [place] [address] CO2 [Moles/Vol] 29.0 mmol/L Normal 21.0-32.0 [facility] Comment on above: Performed By: #### 2 232530 #### [facility] [employer] [address] [place] [address] Creatinine [Mass/Vol] 0.7 mg/dL Normal 0.5-1.1 [facility] Comment on above: Performed By: #### 2 128751 #### [facility] [employer] [address] [place] [address] Globulin (S) [Mass/Vol] 3.0 g/dL Normal 2.0-4.0 [facility] Comment on above: Performed By: #### 2 338683 #### [facility] [employer] [address] [place] [address] Glucose [Mass/Vol] 95 mg/dL Normal 70-99 [facility] Comment on above: Performed By: #### 2 400232 #### [facility] [employer] [address] [place] [address] Potassium [Moles/Vol] 4.2 mmol/L Normal 3.5-5.3 [facility] Comment on above: Performed By: #### 2 111094 #### [facility] [employer] [address] [place] [address] Protein [Mass/Vol] 7.0 g/dL Normal 6.4-8.2 [facility] Comment on above: Performed By: #### 2 505801 #### [facility] [employer] [address] [place] [address] Sodium [Moles/Vol] 140 mmol/L Normal 136-145 [facility] Comment on above: Performed By: #### 2 579262 #### [facility] [employer] [address] [place] [address] Urea nitrogen [Mass/Vol] 13 mg/dL Normal 6-23 [facility] Comment on above: Performed By: #### 2 850252 #### [facility] [employer] [address] [place] [address] Urea nitrogen/Creatinine [Mass ratio] 18.6 ratio Normal 5.4-30.0 [facility] Comment on above: Performed By: #### 2 068740 #### [facility] [employer] [address] [place] [address] CRPon 01-27-2019 CRP [Mass/Vol] 0.36 mg/dL Normal 0.00-1.00 [facility] Comment on above: Performed By: #### 2 694104 #### [facility] [employer] [address] [place] [address] Lab Miscellaneouson 01-28-20 19 Test Name [id number] Normal [facility] Comment on above: Order Comment: [place] [id number] Performed By: #### 1 [id number] #### [facility] Send Outs Subsection [address] [place] [address] Test Name [id number] [facility] Comment on above: Order Comment: Anti CCP [id number] Performed By: #### 1 [id number] #### [facility] Send Outs Subsection [address] [place] [address] Sed Rate Automatedon 019 Sed Rate Automated 9 mm/hr [facility] Comment on above: Result Comment: AGE- SPECIFIC REFERENCE RANGES FOR SEDIMENTATION RATE AUTOMATED REFERENCE RANGE - MM/HR AGE MEN WOMEN 0-2 0-2 - PUBERTY 3-13 3-13 PUBERTY - 50 YRS 0-15 0-20 > 50 YRS 0-20 0-30 Performed By: #### 1 [id number] #### MIYA Hematology Manual Subsection [facility] [place] [address] XR Spine Cervical 2 or 3 Vie wson 01-27-2019 XR Spine Cervical 2 or 3 Views Exam Date/Time: 01/27/2019 10:54 EDT Reason for Exam: Neck Pain Report STUDY: XR Spine Cervical 2 or 3 Views; 01/27/2019 10:54 am INDICATION: Neck Pain. COMPARISON: None. ACCESSION NUMBER(S): [id number] ORDERING CLINICIAN: Bj Leon TECHNIQUE: 3 views [...] Signed by: Yanick Adams MD Technologist: HLNahun [facility] eGFRon 01-27-2019 GFR/1.73 sq M predicted among non-blacks MDRD (S/P/Bld) [Vol rate/Area] mL/min/{1.73_m2} [facility] Comment on above: Order Comment: Order added by Discern Expert. Performed By: #### 1 [id number] #### MIYA [employer] [facility] [place] [address] Vital Signs Date Time Vital Sign Value Performing Clinician Facility 08-03-2023 09:35-0500 Body height 165.1 cm Monica Tulio Other [facility] Other 08-03-2023 09:35-0500 Body mass index (BMI) [Ratio] 26.39 kg/m2 Monica Antunez Other [facility] Other 08-03-2023 09:35-0500 Body temperature 99.1 [degF] Monica Antunez Other [facility] Other 08-03-2023 09:35-0500 Body weight 71.94 kg Monica Antunez Other [facility] Other 08-03-2023 09:35-0500 Diastolic blood pressure 72 mm[Hg] Monica Antunez Other [facility] Other 08-03-2023 09:35-0500 Respiratory rate 18 /min Monica Antunez Other [facility] Other 08-03-2023 09:35-0500 SaO2% (BldA) [Mass fraction] 99 % Monica Antunez Other [facility] Other 08-03-2023 09:35-0500 Systolic blood pressure 111 mm[Hg] Monica Antunez Other [facility] Other 05-09-2023 11:00-0400 Body height 165.1 cm Lisa Carpio Other [facility] Other 05-09-2023 11:00-0400 Body mass index (BMI) [Ratio] 25.29 kg/m2 Lisa Carpio Other [facility] Other 05-09-2023 11:00-0400 Body temperature 98 [degF] Lisa Carpio Other [facility] Other 05-09-2023 11:00-0400 Body weight 68.95 kg Lisa Carpio Other [facility] Other 05-09-2023 11:00-0400 Diastolic blood pressure 64 mm[Hg] Lisa Jansenmond Other [facility] Other 05-09-2023 11:00-0400 Respiratory rate 18 /min Lisa Jansenmond Other [facility] Other 05-09-2023 11:00-0400 SaO2% (BldA) [Mass fraction] 96 % Lisa Carpio Other [facility] Other 05-09-2023 11:00-0400 Systolic blood pressure 98 mm[Hg] Lisa Carpio Other [facility] Other 05-30-2020 09:15-0400 BP Diastolic 68 mm[Hg] [employer] [facility] 05-30-2020 09:15-0400 BP Systolic 102 mm[Hg] [facility] [facility] 05-30-2020 09:15-0400 Pulse (Heart Rate) 88 /min [employer] [facility] 05-30-2020 09:15-0400 Pulse Oximetry 99 % [facility] 05-30-2020 09:15-0400 Respiratory Rate 16 /min [facility] 05-30-2020 08:14-0400 Body Temperature 97.39 [degF] [facility] 05-30-2020 06:27-0400 BMI (Body Mass Index) 21.63 kg/m2 [place] [facility] 05-30-2020 06:27-0400 Body weight 58.97 kg [facility] 05-30-2020 06:27-0400 Height 165.1 cm [facility] Encounters Encounter Date Encounter Type Care Provider Facility Start: 08-03-2023 End: 08-03-2023 ambulatory Monica Antunez Other [facility] Other Start: 08-03-2023 Office outpatient vi sit 15 minutes Monica Antunez [facility] Start: [facility] Start: 05-31-2023 ambulatory HAIR SONG [facility] Start: 05-09-2023 End: 05-09-2023 ambulatory Lisa Carpio Other [facility] [employer] Other Start: 05-09-2023 Office outpatient ne w 20 minutes Lisa Carpio [facility] Start: 03-22-2023 End: 03-22-2023 ambulatory [facility] Start: 01-22-2023 End: 01-23-2023 ambulatory LISA MCCARTHY Facility:[facility] Start: 04-12-2022 End: 04-12-[address] BRENDAN TAYLOR . Facility:[facility] Start: 05-30-2020 End: 05-30-2020 Subsequent hospital visit by physician Van Pinedo Work Phone: [employer] [facility] Comment on above: HSIL (high grade squ amous intraepithelial lesion) on Pap smear of cervix Start: 05-26-2020 End: 05-26-2020 Patient encounter procedure VAN PINEDO [facility] Start: 05-10-2020 End: 05-10-2020 Patient encounter procedure VAN RODRIGUEZN [facility] Procedures Date Procedure Procedure Detail Performing Clinician Start: 05-30-2020 Choriogonadotropin ( test) [Presence] in Urine Van Pinedo Work Phone: Start: 05-30-2020 Urinalysis, reagent strip without microscopy Van Pinedo Work Phone: Plan of Treatment Date Care Activity Detail Author Start: 05-07-2020 Influenza vaccination INFLUENZA VACC INE (#1) [facility] Start: 2017 Screening for malign ant neoplasm of cervix CERVICAL CANCER SCREENING DISCUSSION [facility] Start: 2015 Third diphtheria, te tanus and acellular pertussis (DTaP) vaccination TDAP (ADULT) [facility] Start: 2014 Tetanus vaccination TETANUS [facility] Start: 2012 Screening for Chlamy makenna trachomatis CHLAMYDIA SCREEN [facility] Start: 2009 HIV screening HIV SCREENING DISCUSSI ON [facility] Start: 2007 Vaccination for twila n papillomavirus HPV VACCINE ADOL (1 - 2-dose series) [facility] Start: 1996 GONORRHEA SCREEN GONORRHEA SCREEN [facility] SURGICAL PATHOLOGY REQUEST SURGICAL PATHOLOGY REQUEST Surg Path Routine HSIL (high grade squamous intraepithelial lesion) on Pap smear of cervix Release Upon Ordering for 1 Occurrences starting 05/30/2020 [facility] Comment on above: Release Upon Orderin g for 1 Occurrences starting 05/30/2020 Payers Date Payer Category Payer Private Health Insurance [facility] [id number] 2019-Present [id number] 2019 Unknown [id number] 1996 Unknown [id number] 03 1996 Unknown [id number] 1996 Unknown [id number] 1996 Unknown [id number] 1959 Unknown [id number] 1959 Unknown [id number] Social History Date Type Detail Facility Start: 05-30-2020 Tobacco smoking status NHIS Never smoker [facility] Start: 05-30-2020 Tobacco use and exposure Never used [facility] Start: 05-30-2020 Alcohol intake Ex-drinker (finding) [facility] Start: 05-23-2020 Alcohol Comment rarely [facility] Sex Assigned At Not on file [facility] Exposure to SARS-CoV-2 (event) Not sure [facility] Sex Assigned At Sex Assigned At Bir th [facility] Other Evaluation note 08-03-2023 Note Date & [...] treatment plan. Patient left in stable condition [facility] Other Progress note 05-31-2023 Note Date & Type Note Facility 05-31-2023 Note Called and spoke wit h patient - she just picked Corlanor up from her local pharmacy. No questions at this time and we will no longer follow up until time for PA renewal. Mari Voss, Dionne, [facility] Outpatient Clinical Pharmacist [facility] [id number] 06/03/23 10:57 AM [facility] Progress note 05-31-2023 Note Date & Type Note Facility 05-31-2023 Note New rx received for Corlanor 5mg BID for treatment of G90.A POTS. PA required. Previous meds tried: Florinef (10/27-03/26) Failure Bystolic (10/27-03/26) INTOLERANT Wellbutrin (10/27-03/26) Failure Metoprolol (03/26-Current) Insufficient, sometimes INTOLERANT PA initiated via fax to [facility]. Calling pt to discuss PA process. Pt informed. F/U upon determination. Paul Beck CPhT [facility] 232:54 PM [facility] Progress note 05-31-2023 Note Date & Type Note Facility 05-31-2023 Note PA Approved through 05/29/2024. Patient wants to get it filled at the [facility] in [place]. Transferred prescription via fax ([phone]) at 10:45 AM today. Jesse Rios (Robbie), Dionne, PGY-1 [employer] 06/01/23 10:47 AM [facility] [phone] [facility] Progress note 05-31-2023 Note Date & Type Note Facility 05-31-2023 Note Zo Lange is a ple asant 27 year old adule referred to Dr Tereso Garcia and the [facility] in the [facility] at the [facility] for an evaluation of known postural orthostatic [...] of NE and (more content not included)... 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 Stephen Joyce, WANDER-CELLULAR EQUIPMENT REPAIRER [facility] Cardiovascular Medicine [facility] History general Narrative - Reported Note Date & Type Note Facility History general Narrative - Reported Type Medical History Seasonal allergic rhinitis Medical History Depression Medical History POTS (postural ortho static tachycardia syndrome) Medical History Vitamin D deficiency, unspecifie d Surgical History LEEP Surgical History wisdom teeth Master [employer] Other Summary Purpose Family History No Family [...] * LEEP (Loop Electrosurgical Excision Procedure): Post-op ([place]) documented in this encounter Assessments Diagnosis Acute post-operative pain- Primary Preop testing Preoperative examination, unspecified HSIL (high grade squamous intraepithelial lesion) on Pap smear of cervix Additional Source Comments INFORMATION SOURCE (unrecogn ized section and content) DATE CREATED AUTHOR 03/18/2019 [facility] DATE CREATED AUTHOR AUTHOR'S ORGANIZ ATION 05/15/2020 [facility] DATE CREATED AUTHOR AUTHOR'S ORGANIZ ATION 05/27/2020 [facility] DATE CREATED AUTHOR AUTHOR'S ORGANIZ ATION 06/06/2020 [facility] DATE CREATED AUTHOR AUTHOR'S ORGANIZ ATION 09/02/2020 [facility] DATE CREATED AUTHOR AUTHOR'S ORGANIZ ATION 01/30/2023 [facility] DATE CREATED AUTHOR AUTHOR'S ORGANIZ ATION 06/14/2023 [facility] Reason for Visit (unrecogniz ed section and content) BODY ACHES, NAUSEA, CONGESTI ON Status Reason Specialty Diagnoses / Procedures Re ferred By Contact Referred To Contact Diagnoses HSIL (high grade squamous intraepithelial lesion) on Pap smear of cervix HSIL (high grade squamous intraepithelial lesion) on Pap smear of cervix [R87.613] Procedures MS CONIZATION CERVIX,LOOP ELECTRD CONIZATION CERVIX W/ LOOP [...] Rx handed to pt, IV discontinued by [employer], pt to waiting car via wheelchair in company of [employer]. Transferred patient to OP bay 1, report given to Jaime SIMS. at bedside. POST OPERATIVE/PROCEDURE NOTE Zo Reza ([id number]) SURGEON Surgeon(s) and Role: * Van Pinedo MD - Primary BEVEL OPERATOR None ANESTHESIOLOGIST WOOD STRIP BLOCK FLOOR INSTALLER: Bao Quintana III, APRN-WOOD STRIP BLOCK FLOOR INSTALLER SURGICAL STAFF Energy Auditor: Taz Peng RN; Nenita Smyth RN [employer] Bi Developer: Na Martin PROCEDURE PERFORMED Procedure(s) (LRB): CONIZATION [...] BE BASED ON THE PRIMARY CLINICAL RECORDS. [facility] provides no warranty or guarantee of the accuracy or completeness of information in this document.
[2024-11-09 12:56] LABS: Bilirubin Urine NEGATIVE (NEGATIVE); Blood Urine NEGATIVE (NEGATIVE); Clarity Urine CLEAR (CLEAR); Color Urine LT. YELLOW (YELLOW); Glucose Urine UA NEGATIVE (NEGATIVE); Ketones Urine NEGATIVE (NEGATIVE); Leukocyte Esterase Urine TRACE (NEGATIVE); Nitrite Urine NEGATIVE (NEGATIVE); Protein Urine NEGATIVE (NEG/TRACE); Specific Gravity Urine 1.015 (1.005-1.025); Urobilinogen Urine 0.2 EU/dL (0.2-1.0)
[2024-11-09 13:13] LABS: Bacteria Urine TRACE #/HPF (NONE SEEN); Cast Seen? NONE SEEN #/LPF (NONE SEEN); Crystals Seen? None Seen #/HPF (None Seen); Mucus Urine TRACE (NONE SEEN); RBC Urine NONE SEEN #/HPF (0-2); Squamous Epithelial Cell Urine MODERATE #/LPF (NONE/RARE); Urine Culture Indicated ALREADY ORDERED; WBC Urine 0-2 #/HPF (NONE SEEN)
== END 2024-11-09 11:58 | disposition home or self-care (01) ==
LOC: LAB 11:59
PROVIDERS: PCP Nurse Practitioner Family; Visit Provider Nurse Practitioner Family
DX: N39.0 Urinary tract infection, site not specified (principal)
CPT/HCPCS: 81001; 87086

== ENCOUNTER 2024-11-11 09:53 | Outpatient (OUT) | payer OTHER, SELFPAY ==
--- NOTE | 2024-11-11 09:55 | US_ITS ---
[address] [address] Patient Name: ZO GREENFIELD MRN: [id number] date: 1995 Sex: F Assigned Patient Location: [place] Current Patient Location: [place] Accession/Order Number: [id number] Exam Date: 11/11/2024 10:26 Report Date: 11/11/2024 10:30 At the request of: CLAUDETTE MCCARTHY Procedure: US renal bladder Bilateral Renal Ultrasound HISTORY: Recurrent UTIs COMPARISON: Comparison CT of the abdomen and pelvis 01/17/2021 redemonstration of tiny cysts. RIGHT kidney measures 10.7 cm. LEFT kidney measures 11.1 cm. Hydronephrosis: None RENAL STONE: Bilateral echogenic foci present. Right midpole measuring 2 mm. Left inferior pole measuring 4 mm. RENAL LESIONS: No renal lesion identified. URINARY BLADDER: Unremarkable REPRODUCTIVE STRUCTURES Not assessed IMPRESSION : No hydronephrosis. Suspected bilateral nephrolithiasis measuring up to 4 mm. Impression dictated by: Elie Houston M.D.11/11/2024 10:30 AM Dictation Location[facility] Electron[facility] authenticated by: [id number] Y Date: 11/11/2024 10:30
--- OUTSIDE RECORDS SUMMARY | 2024-11-11 09:55 | XMS_ITS | CCD ---
Author Organization [facility] Care Team Providers Care Supervisor Fabrication Name Role Phone VAN PINEDO Attending Unavailable VAN PINEDO Admitting Unavailable VAN PINEDO Referring Unavailable Bj Leon Primary Care Provider [phone] BRAND[address] ., DR BRENDAN Wilkerson Primary Care [...] oral tablet (1 source) alpha-Adrenergic Agonist, Uncompetitive R-yejpkf-N-aspartate Receptor Antagonist, Sigma-1 Agonist Start: 08-03-20 23 [...] Anesthetic Start: 05-30-2020 End: 05-30-2020 lidocaine-epinephrin e 1%-1:585818 injection 1 ml HYDROmorphone hydrochloride 2 mg/ml [...] (COVID-19) RNA DORINDA+probe Ql (Unsp spec) Positive [employer] Other COVID/FLU RT-PCR Negative [employer] Other Quick Strepon 08-03-2023 S. pyogenes Org specific cx Ql (Throat) Negative [employer] Other Quick Strep [employer] Other [id number] 06-11-2023 [id number] Patient calls again with symptoms. Fatigue, chest pain, brain fog and high HR. Corlanor doesn't seem to be helping. Normal [facility] Patient Messageon 06-09-2023 Patient Message [id number] Zo Lange Nahun 1995 F Date Provider Department Center 06/09/2023 HAIR TAI [facility] CARD [place] Heart[facility] Family History Problem [...] Mother Father Other Alive Neg Hx Normal [facility] CATECHOLAMINES, FRACTIONATED , PLASMAon 05-31-2023 CATECHOLAMINE INTERPRETATION See Note Normal [facility] Comment on above: Order Comment: Supin e [...] developed and its performance characteristics determined by [facility]. It has not been cleared or approved by the US Food and Drug Administration. This test was performed in a CLIA certified laboratory and is intended for clinical purposes. Performed By: [facility] [address] [place] [address] Tool And Die Maker Apprentice: Akira Mercado MD, PhD CLIA Number: [id number] Performed By: #### L [id number] ####[facility] ([facility])[address] [place] [address] DOPAMINE (PG/ML) IN SER/PLAS <20 Normal 0-20 [facility] Comment on above: Order Comment: Supin e 30 minutes NE, EPI, DopamineUpright 30 minutes repeat NE, EPI, Dopamine Performed By: #### L [id number] ####[facility] ([facility] [place] [address] EPINEPHRINE <10 Low 10-200 [facility] Comment on above: Order Comment: Supin e 30 minutes NE, EPI, DopamineUpright 30 minutes repeat NE, EPI, Dopamine Performed By: #### L [id number] ####[facility] ([facility])[address] [place] [address] NOREPINEPHRINE (PG/ML) IN PLASMA 211 pg/mL Normal 80-520 [facility] Comment on above: Order Comment: Supin e 30 minutes NE, EPI, DopamineUpright 30 minutes repeat NE, EPI, Dopamine Performed By: #### L [id number] ####[facility] ([place])[address] [place] [address] CORTISOLon 05-31-2023 CORTISOL (UG/DL) IN SER/PLAS 3.2 ug/dL Normal 0-9 [facility] Comment on above: Performed By: #### L [id number] ####[facility] ([place])[address] [place] [address] Consulton 05-31-2023 Consult [id number] Zo Lange 1995 F Date Provider Department Center 05/31/2023 135-[facility] CARD [place] HeartVAS Family History Problem Relation Age of Onset No Known Problems Mother Other Father Ankylosing spondylitis Other Celiac disease Other Rheum arthritis Other Seizures Neg Hx Fainting Neg Hx Sudden Neg Hx Arrhythmia Neg Hx SIDS Neg Hx Congenital heart disease Neg Hx Congenital Hearing Loss Neg Hx Family Status - Relation Status Age at Mother Father Other Alive Neg Hx Level of Service:73205 IN OFFICE/OUTPATIENT ESTABLISHED MOD MDM 30-39 MIN Reason for Visit and Comments: Follow-up [891974] - POTS Normal [facility] Documentationon 05-31-2023 Documentation [id number] Zo Lange 1995 Date Provider Department Center [...] Specialty Pharmacy Note [Other] - Corlanor Normal [facility] HISTAMINE, PLASMAon 05-31-20 23 HISTAMINE PLASMA <8 Normal 0-8 [facility] Comment on above: Result Comment: INTE RPRETIVE INFORMATION: Histamine, Plasma This test was developed and its performance characteristics determined by [facility]. It has not been cleared or approved by the US Food and Drug Administration. This test was performed in a CLIA certified laboratory and is intended for clinical purposes. Performed By: [facility] [address] [place] [address] Tool And Die Maker Apprentice: Akira Mercado MD, PhD CLIA Number: [id number] Performed By: #### L [id number] ####[facility] ([facility])[address] [place] [address] Labon 05-31-2023 Lab [id number] Zo Lange 1995 F Date Provider Department [place] 05/31/2023 2245-[facility] OPD LAB RESOURCE [facility]PD [place] [facility] Family History Problem Relation Age of Onset No Known Problems Mother Other Father Ankylosing spondylitis Other Celiac disease Other Rheum arthritis Other Seizures Neg Hx Fainting Neg Hx Sudden Neg Hx Arrhythmia Neg Hx SIDS Neg Hx Congenital heart disease Neg Hx Congenital Hearing Loss Neg Hx Family Status - Relation Status Age at Mother Father Other Alive Neg Hx Normal [facility] METANEPHRINES PLASMAon 05-31 METANEPHRINE 0.11 nmol/L Normal 0.00-0.49 [facility] Comment on above: Performed By: #### L [id number] ####[facility] ([facility])[address] [place] [address] METANEPHRINE INTERP See Note Normal [facility] Comment on above: Result Comment: INTE [...] developed and its performance characteristics determined by [facility]. It has not been cleared or approved by the US Food and Drug Administration. This test was performed in a CLIA certified laboratory and is intended for clinical purposes. Performed By: [facility] [address] [place] [address] Tool And Die Maker Apprentice: Akira Mercado MD, PhD CLIA Number: [id number] Performed By: #### L [id number] ####[facility] ([facility])[address] [place] [address] NORMETANEPHRINE 0.22 nmol/L Normal 0.00-0.89 [facility] Comment on above: Performed By: #### L [id number] ####[facility] ([facility])[address] [place] [address] PTH, INTACTon 05-31-2023 PARATHYRIN INTACT (PG/ML) IN SER/PLAS 27 pg/mL Normal 12-88 [facility] Comment on above: Performed By: #### L [id number] ####[facility] ([facility])[address] [place] [address] THYROID PEROXIDASE ANTIBODYo n 05-31-2023 THYROPEROXIDASE AB (IU/ML) IN SER/PLAS 2.3 IU/mL Normal 0.0-9.0 [facility] Comment on above: Result Comment: Perf ormed By: [facility] [address] [place] [address] Tool And Die Maker Apprentice: Akira Mercado MD, PhD CLIA Number: [id number] Performed By: #### L [id number] ####[facility] ([facility])[address] [place] [address] THYROID STIMULATING IMMUNOGL OBULINon 05-31-2023 THYROID STIMULATING IMMUNOGLOBULIN <0.10 Normal <=0.54 [facility] Comment on above: Result Comment: INTE RPRETIVE [...] medical history, and other findings. Performed By: [facility] [address] [place] [address] Tool And Die Maker Apprentice: Akira Mercado MD, PhD CLIA Number: [id number] Performed By: #### L [id number] ####[facility] ([facility])[address] [place] [address] TRYPTASEon 05-31-2023 TRYPTASE (NG/ML) IN SER/PLAS 5.4 ug/L Normal <=10.9 [facility] Comment on above: Result Comment: Perf ormed By: [facility] [address] [place] [address] Tool And Die Maker Apprentice: Akira Mercado MD, PhD CLIA Number: [id number] Performed By: #### L [id number] ####[facility] ([facility])[address] [place] [address] Quick Strepon 05-09-2023 S. pyogenes Org specific cx Ql (Throat) Negative Located Within [facility] Other Quick Strep Located Within [facility] Other 36on 03-30-2023 36 ? She can take two pills if BP is above 100 and HR is high. I agree with arm BP cuff for monitoring. Thanks. [facility] 36 Incomplete Note ? She can take two pills if BP is above 100 and HR is high. I agree with arm BP cuff for monitoring. Thanks. [facility] 36 She can take two pills if BP is above 100 and HR is high. I agree with arm BP cuff for monitoring. Thanks. [facility] 36 Patient called to make you aware that her HR is still in the 150's. She said after you started her on low dose metoprolol, the first two days were fine. Ever since then her HR has shot back up. She isn't scheduled with Lindsey yet so I will reach back out to the [facility] girls again. I advised patient to get a BP cuff if possible. Any suggestions for her? Thanks! [facility] 36on 03-22-2023 36 Hi Radha. Can you please get this patient set up to see Lindsey for POTS? Thanks so much. [facility] Center Office Visiton 03-22-2023 Follow-up visit [id number] Davidson Langecarlo Garnica 1995 F Date Provider Department Center 03/22/2023 STEPHEN PAYNE JAD Callahan No family history on file Level of Service:45352 IN OFFICE/OUTPATIENT ESTABLISHED LOW MDM 20-29 MIN Reason for Visit and Comments: Rapid Heart Rate [808502] Chest Pain [633475] Shortness of Breath [902569] Fatigue [46] Normal [facility] ESTROGENon 01-30-2023 Estrogens, Total 42 pg/mL Normal [facility] Comment on above: Result Comment: Prep ubertal < 40 Female Cycle: 1-10 Days 16 - 328 11-20 Days 34 - 501 21-30 Days 48 - 350 Post-Menopausal 40 - 244 Performed By: #### T SH, FT3, CMP, LIPID, T4 #### [facility] [address] [place] [address] Dr. John Patel FSHon 01-23-2023 FSH 5.0 mIU/mL Normal [facility] Comment on above: Result Comment: Adul t Female: Follicular phase 3.5 - 12.5 Ovulation phase 4.7 - 21.5 Luteal phase 1.7 - 7.7 Postmenopausal 25.8 - 134.8 Performed By: #### L [facility] #### [facility] [address] [place] [address] Dr. John Patel INSULINon 01-23-2023 Insulin 7.6 uIU/mL Normal 2.6-24.9 [facility] Comment on above: Performed By: #### T SH, FT3, CMP, LIPID, T4 #### [facility] [address] [place] [address] Dr. John Patel PROGESTERONEon 01-23-2023 Progesterone 0.2 ng/mL Normal [facility] Comment on above: Result Comment: Foll icular phase 0.1 - 0.9 Luteal phase 1.8 - 23.9 Ovulation phase 0.1 - 12.0 First trimester 11.0 - 44.3 Second trimester 25.4 - 83.3 Third trimester 58.7 - 214.0 Postmenopausal 0.0 - 0.1 Performed By: #### P ROGES #### [facility] [address] [place] [address] Dr. John Patel PROLACTINon 01-23-2023 Prolactin 8.6 ng/mL Normal 4.8-23.3 [facility] Comment on above: Performed By: #### T SH, FT3, CMP, LIPID, T4 #### [facility] [address] [place] [address] Dr. John Patel CBC AUTO DIFFon 01-22-2023 BASO # 0.0 103/ul Normal 0.0-0.1 [facility] Comment on above: Performed By: #### T SH, FT3, CMP, LIPID, T4 #### [facility] [address] [place] [address] Dr. John Patel Basophils/100 WBC (Bld) 0.5 % Normal 0.2-2.0 [facility] Comment on above: Performed By: #### T SH, FT3, CMP, LIPID, T4 #### [facility] [address] [place] [address] Dr. John Patel EO # 0.1 103/ul Normal 0.0-0.7 [facility] Comment on above: Performed By: #### T SH, FT3, CMP, LIPID, T4 #### [facility] [address] [place] [address] Dr. John Patel Eosinophils/100 WBC (Bld) 0.7 % Critically low 0.9-7.0 [facility] Comment on above: Performed By: #### T SH, FT3, CMP, LIPID, T4 #### [facility] [address] [place] [address] Dr. John Patel Erythrocyte distribution width (RBC) [Ratio] 12.3 % Normal 11.0-15.0 [facility] Comment on above: Performed By: #### T SH, FT3, CMP, LIPID, T4 #### [facility] [address] [place] [address] Dr. John Patel Hematocrit (Bld) [Volume fraction] 37.7 % Normal 36.0-48.0 [facility] Comment on above: Performed By: #### T SH, FT3, CMP, LIPID, T4 #### [facility] [address] [place] [address] Dr. John Patel Hemoglobin (Bld) [Mass/Vol] 12.8 g/dL Normal 12.0-16.0 [facility] Comment on above: Performed By: #### T SH, FT3, CMP, LIPID, T4 #### [facility] [address] [place] [address] Dr. John Patel IG # 0.03 10e3/ul Normal 0.00-0.03 [facility] Comment on above: Performed By: #### T SH, FT3, CMP, LIPID, T4 #### [facility] [address] [place] [address] Dr. John Patel IG % 0.4 % Normal 0.0-0.5 [facility] Comment on above: Performed By: #### T SH, FT3, CMP, LIPID, T4 #### [facility] [address] [place] [address] Dr. John Patel LYMPH # 1.8 103/ul Normal 1.2-3.8 [facility] Comment on above: Performed By: #### T SH, FT3, CMP, LIPID, T4 #### [facility] [address] [place] [address] Dr. John Patel Lymphocytes/100 WBC (Bld) 21.4 % Normal 20.5-60.0 [facility] Comment on above: Performed By: #### T SH, FT3, CMP, LIPID, T4 #### [facility] [address] [place] [address] Dr. John Patel MANUAL DIFF REQ NO Normal [facility] Comment on above: Performed By: #### T SH, FT3, CMP, LIPID, T4 #### [facility] [address] [place] [address] Dr. John Patel MCH (RBC) [Entitic mass] 27.6 pg Normal 26.7-34.0 [facility] Comment on above: Performed By: #### T SH, FT3, CMP, LIPID, T4 #### [facility] [address] [place] [address] Dr. John Patel MCHC (RBC) [Mass/Vol] 34.0 g/dL Normal 29.9-35.2 [facility] Comment on above: Performed By: #### T SH, FT3, CMP, LIPID, T4 #### [facility] [address] [place] [address] Dr. John Patel MCV (RBC) [Entitic vol] 81.3 fL Normal 81.0-99.0 [facility] Comment on above: Performed By: #### T SH, FT3, CMP, LIPID, T4 #### [facility] [address] [place] [address] Dr. John Patel MONO # 0.4 103/ul Normal 0.3-0.8 [facility] Comment on above: Performed By: #### T SH, FT3, CMP, LIPID, T4 #### [facility] [address] [place] [address] Dr. John Patel Monocytes/100 WBC (Bld) 4.5 % Normal 1.7-12.0 [facility] Comment on above: Performed By: #### T SH, FT3, CMP, LIPID, T4 #### [facility] [address] [place] [address] Dr. John Patel NEUT # 6.2 103/ul Normal 1.4-6.5 [facility] Comment on above: Performed By: #### T SH, FT3, CMP, LIPID, T4 #### [facility] [address] [place] [address] Dr. John Patel Neutrophils/100 WBC (Bld) 72.5 % Normal 43.0-75.0 [facility] Comment on above: Performed By: #### T SH, FT3, CMP, LIPID, T4 #### [facility] [address] [place] [address] Dr. John Patel Platelet mean volume (Bld) [Entitic vol] 10.1 fL Normal 9.5-13.5 [facility] Comment on above: Performed By: #### T SH, FT3, CMP, LIPID, T4 #### [facility] [address] [address] [address] John Patel PLT 295 103/ul Normal 150-450 [facility] Comment on above: Performed By: #### T SH, FT3, CMP, LIPID, T4 #### [facility] [address] [address] [address] John Patel RBC 4.64 106/ul Normal 4.20-5.40 [facility] Comment on above: Performed By: #### T SH, FT3, CMP, LIPID, T4 #### [facility] [address] [address] [address] John Patel WBC 8.5 103/ul Normal 4.0-11.0 [facility] Comment on above: Performed By: #### T SH, FT3, CMP, LIPID, T4 #### [facility] [address] [place] [address] Dr. John Patel FREE T3on 01-22-2023 FREE T3 2.44 pg/mlL Normal 2.18-3.98 [facility] Comment on above: Performed By: #### T SH, FT3, CMP, LIPID, T4 #### [facility] [address] [place] [address] Dr. John Patel GLYCOHEMOGLOBIN A1Con 2022 ADA RECOMMENDATION SEE BELOW Normal [facility] Comment on above: Result Comment: ADA RECOMMENDED LIMIT 4.0 - 6.0 ADA THERAPEUTIC TARGET < 7.0 ACTION SUGGESTED > 7.0 Performed By: #### A 1C #### [facility] [address] [place] [address] Dr. John Patel Glucose [Mass/Vol] 94 mg/dL Normal [facility] Comment on above: Performed By: #### A 1C #### [facility] [address] [place] [address] Dr. John Patel HbA1c (Bld) [Mass fraction] 4.9 % Normal 4.5-6.2 [facility] Comment on above: Performed By: #### A 1C #### [facility] [address] [address] [address] John Patel IRONon 01-22-2023 Iron [Mass/Vol] 55.0 ug/dL Normal 50.0-170.0 [facility] Comment on above: Performed By: #### V ITAD, IRON #### [facility] [address] [address] [address] John Patel LIPID PROFILEon 01-22-2023 CHOL-HDL RATIO NORM SEE BELOW Normal [facility] Comment on above: Result Comment: 3.3 - 4.4 LOW RISK 4.4 - 7.1 AVERAGE RISK 7.1 - 11.0 MODERATE RISK >11.0 HIGH RISK Performed By: #### T SH, FT3, CMP, LIPID, T4 #### [facility] [address] [address] [address] John Patel Cholesterol [Mass/Vol] 156 mg/dL Normal <=200 [facility] Comment on above: Performed By: #### T SH, FT3, CMP, LIPID, T4 #### [facility] [address] [address] [address] John Patel Cholesterol in HDL [Mass/Vol] 50 mg/dL Normal 40-60 [facility] Comment on above: Performed By: #### T SH, FT3, CMP, LIPID, T4 #### [facility] [address] [address] [address] John Patel Cholesterol in LDL [Mass/Vol] 90.6 mg/dL Normal [facility] Comment on above: Performed By: #### T SH, FT3, CMP, LIPID, T4 #### [facility] [address] [address] [address] John Patel Cholesterol.total/Cho lesterol in HDL [Mass ratio] 3.1 {ratio} Normal [facility] Comment on above: Performed By: #### T SH, FT3, CMP, LIPID, T4 #### [facility] [address] [address] [address] John Patel HDL NORMAL > or = 60 mg/dl - LOW CARDIOVASCULAR RISK <40 mg/dl - HIGH CARDIOVASCULAR RISK Normal [facility] Comment on above: Performed By: #### T SH, FT3, CMP, LIPID, T4 #### [facility] [address] [address] [address] John Patel LDL CALC NORMAL SEE BELOW Normal [facility] Comment on above: Result Comment: <100 mg/dl OPTIMAL 100 - 129 mg/dl NEAR OR ABOVE OPTIMAL 130 - 159 mg/dl BORDERLINE HIGH 160 - 189 mg/dl HIGH >190 mg/dl VERY HIGH Performed By: #### T SH, FT3, CMP, LIPID, T4 #### [facility] [address] [address] [address] John Patel Triglyceride [Mass/Vol] 77 mg/dL Normal <=150 [facility] Comment on above: Performed By: #### T SH, FT3, CMP, LIPID, T4 #### [facility] [address] [address] [address] John Patel VLDL CALC 15.4 mg/dL Normal [facility] Comment on above: Performed By: #### T SH, FT3, CMP, LIPID, T4 #### [facility] [address] [address] [address] John Patel PROF 14(COMP METB)on 023 Albumin [Mass/Vol] 3.6 g/dL Normal 3.4-5.0 [facility] Comment on above: Performed By: #### T SH, FT3, CMP, LIPID, T4 #### [facility] [address] [address] [address] John Patel Albumin/Globulin [Mass ratio] 1.0 {ratio} Normal [facility] Comment on above: Performed By: #### T SH, FT3, CMP, LIPID, T4 #### [facility] [address] [address] [address] John Patel ALP [Catalytic activity/Vol] 67 U/L Normal 46-116 [facility] Comment on above: Performed By: #### T SH, FT3, CMP, LIPID, T4 #### [facility] [address] [address] [address] John Patel ALT [Catalytic activity/Vol] 23 U/L Normal 14-59 [facility] Comment on above: Performed By: #### T SH, FT3, CMP, LIPID, T4 #### [facility] [address] [place] [address] Dr. John Patel Anion gap [Moles/Vol] 14.8 mmol/L Normal [facility] Comment on above: Performed By: #### T SH, FT3, CMP, LIPID, T4 #### [facility] [address] [address] [address] John Patel AST [Catalytic activity/Vol] 12 U/L Critically low 15-37 [facility] Comment on above: Performed By: #### T SH, FT3, CMP, LIPID, T4 #### [facility] [address] [place] [address] Dr. John Patel Bilirubin [Mass/Vol] 0.3 mg/dL Normal 0.2-1.0 [facility] Comment on above: Performed By: #### T SH, FT3, CMP, LIPID, T4 #### [facility] [address] [place] [address] Dr. John Patel Calcium [Mass/Vol] 8.7 mg/dL Normal 8.5-10.1 [facility] Comment on above: Performed By: #### T SH, FT3, CMP, LIPID, T4 #### [facility] [address] [place] [address] Dr. John Patel Chloride [Moles/Vol] 106 mmol/L Normal 98-107 [facility] Comment on above: Performed By: #### T SH, FT3, CMP, LIPID, T4 #### [facility] [address] [place] [address] Dr. John Patel CO2 [Moles/Vol] 25.1 mmol/L Normal 21.0-32.0 [facility] Comment on above: Performed By: #### T SH, FT3, CMP, LIPID, T4 #### [facility] [address] [place] [address] Dr. John Patel Creatinine [Mass/Vol] 0.67 mg/dL Normal 0.55-1.02 [facility] Comment on above: Performed By: #### T SH, FT3, CMP, LIPID, T4 #### [facility] [address] [place] [address] Dr. John Patel EGFR-AF FRENCH >60 Normal >=60 [facility] Comment on above: Performed By: #### T SH, FT3, CMP, LIPID, T4 #### [facility] [address] [place] [address] Dr. John Patel EGFR-NON AF FRENCH >60 Normal >=60 [facility] Comment on above: Performed By: #### T SH, FT3, CMP, LIPID, T4 #### [facility] [address] [place] [address] Dr. John Patel Globulin (S) [Mass/Vol] 3.6 g/dL Normal [facility] Comment on above: Performed By: #### T SH, FT3, CMP, LIPID, T4 #### [facility] [address] [place] [address] Dr. John Patel Glucose [Mass/Vol] 89 mg/dL Normal 74-106 The [facility] Comment on above: Performed By: #### T SH, FT3, CMP, LIPID, T4 #### [facility] [address] [place] [address] Dr. John Patel Potassium [Moles/Vol] 3.9 mmol/L Normal 3.5-5.1 [facility] Comment on above: Performed By: #### T SH, FT3, CMP, LIPID, T4 #### [facility] [address] [place] [address] Dr. John Patel Protein [Mass/Vol] 7.2 g/dL Normal 6.4-8.2 [facility] Comment on above: Performed By: #### T SH, FT3, CMP, LIPID, T4 #### [facility] [address] [place] [address] Dr. John Patel Sodium [Moles/Vol] 142 mmol/L Normal 136-145 [facility] Comment on above: Performed By: #### T SH, FT3, CMP, LIPID, T4 #### [facility] [address] [address] [address] John Patel Urea nitrogen [Mass/Vol] 10.0 mg/dL Normal 7.0-18.0 [facility] Comment on above: Performed By: #### T SH, FT3, CMP, LIPID, T4 #### [facility] [address] [place] [address] Dr. John Patel Urea nitrogen/Creatinine [Mass ratio] 14.9 mg/mg Normal [facility] Comment on above: Performed By: #### T SH, FT3, CMP, LIPID, T4 #### [facility] [address] [address] [address] John Patel T4on 01-22-2023 T4 [Mass/Vol] 6.60 ug/dL Normal 4.80-13.90 [facility] Comment on above: Performed By: #### T SH, FT3, CMP, LIPID, T4 #### [facility] [address] [place] [address] Dr. John Patel TSHon 01-22-2023 TSH 1.541 uIU/mL Normal 0.358-3.740 [facility] Comment on above: Performed By: #### T SH, FT3, CMP, LIPID, T4 #### [facility] [address] [place] [address] Dr. John Patel VITAMIN D 25 OHon 01-22-2023 VIT D 25-OH 22.3 ng/mL Normal [facility] Comment on above: Performed By: #### V ITKAYLEIGH, IRON #### [facility] [address] [place] [address] Dr. John Patel VIT D RANGES SEE BELOW Normal [facility] Comment on above: Result Comment: <20 ng/mL Vit D deficient 20 - <30 ng/mL Vit D insufficient 30 - 100 ng/mL Vit D sufficient >100 ng/mL Potential Toxicity Performed By: #### V ITKAYLEIGH, IRON #### [facility] [address] [place] [address] Dr. John Patel Quantiferon TB-Gold+on 09-02 QFT MITOGEN ZAYRA > 10.00 Normal . [facility] Comment on above: Performed By: #### L 3400.8000 #### [facility] (refer to report for specific site) refer to report for address and phone number QFT NIL VALUE 0.03 IU/mL Normal . [facility] Comment on above: Performed By: #### L 3400.8000 #### [facility] (refer to report for specific site) refer to report for address and phone number QFT TB GOLD Comment Normal . [facility] Comment on above: Result Comment: The QuantiFERON-TB Gold Plus result is determined by subtracting the Nil value from either TB antigen (Ag) tube. The mitogen tube serves as a control for the test. Performed By: #### L 3400.8000 #### [facility] (refer to report for specific site) refer to report for address and phone number QFT TB POS CRIT Negative Normal Negative [facility] Comment on above: Result Comment: The specimen received for QuantiFERON testing was incubated by the ordering institution. Specific procedures outlined in our Directory of Services and in the package insert for the QuantiFERON Gold (In Tube) test must be followed to enable for proper stimulation of cells for the production of interferon gamma. Performed at: [facility] [id number] Knitter Helper: Galindo Forte PhD, Phone: [phone] Performed By: #### L 3400.7999 #### [facility] (refer to report for specific site) refer to report for address and phone number QFT TB1+ AG ZAYRA 0.04 IU/mL Normal . [facility] Comment on above: Performed By: #### L 3400.7999 #### [facility] (refer to report for specific site) refer to report for address and phone number QFT TB2+ AG ZAYRA 0.02 IU/mL Normal . [facility] Comment on above: Performed By: #### L 3400.8000 #### [facility] (refer to report for specific site) refer to report for address and phone number CBC W/Diff, Automatedon 12-2 Absolute Neut 5.8 X10 3/uL Normal 2.0-7.7 [facility] Comment on above: Performed By: #### L 3400.8000 #### [facility] (refer to report for specific site) refer to report for address and phone number Basophils/100 WBC (Bld) 0.5 % Normal 0-1 [facility] Comment on above: Performed By: #### L 3400.8000 #### [facility] (refer to report for specific site) refer to report for address and phone number Eosinophils/100 WBC (Bld) 0.8 % Normal 0-5 [facility] Comment on above: Performed By: #### L 3400.8000 #### [facility] (refer to report for specific site) refer to report for address and phone number Erythrocyte distribution width (RBC) [Ratio] 12.3 % Normal 11.6-14.6 [facility] Comment on above: Performed By: #### L 3400.8000 #### [facility] (refer to report for specific site) refer to report for address and phone number Hematocrit (Bld) [Volume fraction] 37.7 % Normal 37-47 [facility] Comment on above: Performed By: #### L 3400.8000 #### [facility] (refer to report for specific site) refer to report for address and phone number Hemoglobin (Bld) [Mass/Vol] 12.5 g/dL Normal 12.0-15.0 [facility] Comment on above: Performed By: #### L 3400.8000 #### [facility] (refer to report for specific site) refer to report for address and phone number IM GRAN % 0.500 % Normal 0.0-0.9 [facility] Comment on above: Result Comment: IG% - Immature Granulocytes (promyelocytes, myelocytes and metamyelocytes) > 1% indicates that a LEFT SHIFT is Present. Performed By: #### L 3400.8000 #### [facility] (refer to report for specific site) refer to report for address and phone number Lymphocytes (Bld) [#/Vol] 1.92 X10 3/uL Normal 0.83-4.51 [facility] Comment on above: Performed By: #### L 3400.8000 #### [facility] (refer to report for specific site) refer to report for address and phone number Lymphocytes/100 WBC (Bld) 23.0 % Normal 19-41 [facility] Comment on above: Performed By: #### L 3400.8000 #### [facility] (refer to report for specific site) refer to report for address and phone number MCH (RBC) [Entitic mass] 28.0 pg Normal 27.0-32.0 [facility] Comment on above: Performed By: #### L 3400.8000 #### [facility] (refer to report for specific site) refer to report for address and phone number MCHC (RBC) [Mass/Vol] 33.2 g/dL Normal 32-36 [facility] Comment on above: Performed By: #### L 3400.8000 #### [facility] (refer to report for specific site) refer to report for address and phone number MCV (RBC) [Entitic vol] 84.5 fL Normal 81-99 [facility] Comment on above: Performed By: #### L 3400.8000 #### [facility] (refer to report for specific site) refer to report for address and phone number Monocytes/100 WBC (Bld) 5.5 % Normal 0-10 [facility] Comment on above: Performed By: #### L 3400.8000 #### [facility] (refer to report for specific site) refer to report for address and phone number Neutrophils/100 WBC (Bld) 69.7 % Normal 47-70 [facility] Comment on above: Performed By: #### L 3400.8000 #### [facility] (refer to report for specific site) refer to report for address and phone number NRBC, FLAGGED 0 % Normal 0-5 [facility] Comment on above: Performed By: #### L 3400.8000 #### [facility] (refer to report for specific site) refer to report for address and phone number Platelet mean volume (Bld) [Entitic vol] 10.6 fL Normal 6.2-12.0 [facility] Comment on above: Performed By: #### L 3400.8000 #### [facility] (refer to report for specific site) refer to report for address and phone number Platelets (Bld) [#/Vol] 307 10*3/uL Normal 150-450 [facility] Comment on above: Performed By: #### L 3400.8000 #### [facility] (refer to report for specific site) refer to report for address and phone number RBC (Bld) [#/Vol] 4.46 M/mm3 Normal 4.2-5.4 [facility] Comment on above: Performed By: #### L 3400.8000 #### [facility] (refer to report for specific site) refer to report for address and phone number RDW SD 37.5 fl Normal 35.1-43.9 [facility] Comment on above: Performed By: #### L 3400.8000 #### [facility] (refer to report for specific site) refer to report for address and phone number WBC (Bld) [#/Vol] 8.3 10*3/uL Normal 4.4-11.0 [facility] Comment on above: Performed By: #### L 3400.8000 #### [facility] (refer to report for specific site) refer to report for address and phone number Cerv Spine 4 or 5 Viewson Cerv Spine 4 or 5 Views [facility] [address] [place] [address] Cerv Spine 4 or 5 Views MR#: [id number] Acct: [id number] Name: ZO REZA Rep #: [id number] : 1995 F 25 From: Leonardo restrepo MD PCP: Dr. Bj Leon MD Status: [facility] CLI Study: Cerv Spine 4 or 5 Views Date of Exam: 08/27/20 Exam# [id number] Ordering Dr: Desi Moraes MD STUDY: X-RAY [...] Bj Leon MD; Dr. Desi Moraes MD Enterprise Data Architect: Signed Normal [facility] Chest PA and Lateralon 08-27 Chest PA and Lateral [facility] [address] [place] [address] Chest PA and Lateral MR#: [id number] Acct: [id number] Name: ZO REZA Rep #: [id number] : 1995 25 From: Matheus stahl MD PCP: Dr. Bj Leon MD Status: [facility] CLI Study: Chest PA and Lateral Date of Exam: 08/27/20 Exam# [id number] Ordering Dr: Desi Moraes MD STUDY: X-RAY [...] Bj Leon MD; Dr. Desi Moraes MD Enterprise Data Architect: Signed Normal [facility] Comprehensive Metabolic Prof ilon 08-27-2020 Albumin [Mass/Vol] 3.8 g/dL Normal 3.2-5.0 [facility] Comment on above: Performed By: #### L 3400.8000 #### [facility] (refer to report for specific site) refer to report for address and phone number Albumin/Globulin [Mass ratio] 1.1 {ratio} Normal 0.9-2.4 [facility] Comment on above: Performed By: #### L 3400.8000 #### [facility] (refer to report for specific site) refer to report for address and phone number ALK P 60 U/L Normal 45-117 [facility] Comment on above: Performed By: #### L 3400.8000 #### [facility] (refer to report for specific site) refer to report for address and phone number ALT [Catalytic activity/Vol] 19 U/L Normal 13-56 [facility] Comment on above: Performed By: #### L 3400.8000 #### [facility] (refer to report for specific site) refer to report for address and phone number AST [Catalytic activity/Vol] 11 U/L Low 15-37 [facility] Comment on above: Performed By: #### L 3400.8000 #### [facility] (refer to report for specific site) refer to report for address and phone number Bilirubin [Mass/Vol] 0.20 mg/dL Normal 0.20-1.00 [facility] Comment on above: Result Comment: For patients on eltrombopag therapy, use of Dimension [place] TBIL is not recommended. Performed By: #### L 3400.8000 #### [facility] (refer to report for specific site) refer to report for address and phone number Calcium [Mass/Vol] 8.6 mg/dL Normal 8.5-10.1 [facility] Comment on above: Performed By: #### L 3400.8000 #### [facility] (refer to report for specific site) refer to report for address and phone number Chloride [Moles/Vol] 105 mmol/L Normal 98-107 [facility] Comment on above: Performed By: #### L 3400.7999 #### [facility] (refer to report for specific site) refer to report for address and phone number CO2 [Moles/Vol] 29.0 mmol/L Normal 21.0-32.0 [facility] Comment on above: Performed By: #### L 3400.8000 #### [facility] (refer to report for specific site) refer to report for address and phone number Creatinine [Mass/Vol] 0.80 mg/dL Normal 0.55-1.02 [facility] Comment on above: Result Comment: The validity of the calculated GFR AND GFRAA in patients over 70 years has not been determined. Clinical correlation is essential. Performed By: #### L 3400.8000 #### [facility] (refer to report for specific site) refer to report for address and phone number EST GFR - AA 113 mL/min Normal >60 [facility] Comment on above: Result Comment: Afri can Swazi GFR Calc Performed By: #### L 3400.8000 #### [facility] (refer to report for specific site) refer to report for address and phone number GAP 5 Normal 5-15 [facility] Comment on above: Performed By: #### L 3400.8000 #### [facility] (refer to report for specific site) refer to report for address and phone number GFR/1.73 sq M predicted among non-blacks MDRD (S/P/Bld) [Vol rate/Area] 93 mL/min/{1.73_m2} Normal >60 [facility] Comment on above: Result Comment: Non- GFR Calc Performed By: #### L 3400.8000 #### [facility] (refer to report for specific site) refer to report for address and phone number Globulin (S) [Mass/Vol] 3.4 g/dL Normal 2.2-4.2 [facility] Comment on above: Performed By: #### L 3400.8000 #### [facility] (refer to report for specific site) refer to report for address and phone number Glucose [Mass/Vol] 81 mg/dL Normal 74-106 [facility] Comment on above: Result Comment: Frank santos note revised GLUCOSE reference range effective 2017. Performed By: #### L 3400.8000 #### [facility] (refer to report for specific site) refer to report for address and phone number Potassium [Moles/Vol] 3.8 mmol/L Normal 3.5-5.1 [facility] Comment on above: Performed By: #### L 3400.7999 #### [facility] (refer to report for specific site) refer to report for address and phone number Sodium [Moles/Vol] 139 mmol/L Normal 136-145 [facility] Comment on above: Performed By: #### L 3400.7999 #### [facility] (refer to report for specific site) refer to report for address and phone number T PROT 7.2 g/dL Normal 6.4-8.2 [facility] Comment on above: Performed By: #### L 3400.8000 #### [facility] (refer to report for specific site) refer to report for address and phone number Urea nitrogen [Mass/Vol] 14 mg/dL Normal 7-18 [facility] Comment on above: Performed By: #### L 3400.7999 #### [facility] (refer to report for specific site) refer to report for address and phone number Urea nitrogen [Mass/Vol] 17.4 RATIO Normal 10-20 [facility] Comment on above: Performed By: #### L 3400.8000 #### [facility] (refer to report for specific site) refer to report for address and phone number Quantiferon TB-Gold+on 06-28 QFT MITOGEN ZAYRA > 10.00 Normal . [facility] Comment on above: Performed By: #### L 3400.8000 #### [facility] (refer to report for specific site) refer to report for address and phone number QFT NIL VALUE 0.01 IU/mL Normal . [facility] Comment on above: Performed By: #### L 3400.8000 #### [facility] (refer to report for specific site) refer to report for address and phone number QFT TB GOLD Comment Normal . [facility] Comment on above: Result Comment: The QuantiFERON-TB Gold Plus result is determined by subtracting the Nil value from either TB antigen (Ag) tube. The mitogen tube serves as a control for the test. Performed By: #### L 3400.8000 #### [facility] (refer to report for specific site) refer to report for address and phone number QFT TB POS CRIT Negative Normal Negative [facility] Comment on above: Result Comment: The specimen received for QuantiFERON testing was incubated by the ordering institution. Specific procedures outlined in our Directory of Services and in the package insert for the QuantiFERON Gold (In Tube) test must be followed to enable for proper stimulation of cells for the production of interferon gamma. Performed at: [address] [id number] Knitter Helper: Galindo Forte PhD, Phone: [phone] Performed By: #### L 3400.8000 #### [facility] (refer to report for specific site) refer to report for address and phone number QFT TB1+ AG ZAYRA 0.02 IU/mL Normal . [facility] Comment on above: Performed By: #### L 3400.8000 #### [facility] (refer to report for specific site) refer to report for address and phone number QFT TB2+ AG ZAYRA 0.01 IU/mL Normal . [facility] Comment on above: Performed By: #### L 3400.8000 #### [facility] (refer to report for specific site) refer to report for address and phone number CBC W/Diff, Automatedon 10-2 0-2020 Absolute Neut 6.6 X10 3/uL Normal 2.0-7.7 [facility] Comment on above: Performed By: #### L 100.0100 #### [facility] [address] [place], [address] Basophils/100 WBC (Bld) 0.3 % Normal 0-1 [facility] Comment on above: Performed By: #### L 100.0100 #### [facility] [address] [place], [address] Eosinophils/100 WBC (Bld) 0.6 % Normal 0-5 [facility] Comment on above: Performed By: #### L 100.0100 #### [facility] [address] [place], [address] Erythrocyte distribution width (RBC) [Ratio] 11.6 % Normal 11.6-14.6 [facility] Comment on above: Performed By: #### L 100.0100 #### [facility] [address] [place], [address] Hematocrit (Bld) [Volume fraction] 40.0 % Normal 37-47 [facility] Comment on above: Performed By: #### L 100.0100 #### [facility] [address] [place], [address] Hemoglobin (Bld) [Mass/Vol] 13.0 g/dL Normal 12.0-15.0 [facility] Comment on above: Performed By: #### L 100.0100 #### [facility] [address] [place], [address] IM GRAN % 0.400 % Normal 0.0-0.9 [facility] Comment on above: Result Comment: IG% - Immature Granulocytes (promyelocytes, myelocytes and metamyelocytes) > 1% indicates that a LEFT SHIFT is Present. Performed By: #### L 100.0100 #### [facility] [address] [place], [address] Lymphocytes (Bld) [#/Vol] 1.85 X10 3/uL Normal 0.83-4.51 [facility] Comment on above: Performed By: #### L 100.0100 #### [facility] [address] [place], [address] Lymphocytes/100 WBC (Bld) 20.5 % Normal 19-41 [facility] Comment on above: Performed By: #### L 100.0100 #### [facility] [address] [place], [address] MCH (RBC) [Entitic mass] 27.3 pg Normal 27.0-32.0 [facility] Comment on above: Performed By: #### L 100.0100 #### [facility] [address] [place], [address] MCHC (RBC) [Mass/Vol] 32.5 g/dL Normal 32-36 [facility] Comment on above: Performed By: #### L 100.0100 #### [facility] [address] [place], [address] MCV (RBC) [Entitic vol] 84.0 fL Normal 81-99 [facility] Comment on above: Performed By: #### L 100.0100 #### [facility] [address] [place], [address] Monocytes/100 WBC (Bld) 4.9 % Normal 0-10 [facility] Comment on above: Performed By: #### L 100.0100 #### [facility] [address] [place], [address] Neutrophils/100 WBC (Bld) 73.3 % High 47-70 [facility] Comment on above: Performed By: #### L 100.0100 #### [facility] [address] [place], [address] NRBC, FLAGGED 0 % Normal 0-5 [facility] Comment on above: Performed By: #### L 100.0100 #### [facility] [address] [place], [address] Platelet mean volume (Bld) [Entitic vol] 10.7 fL Normal 6.2-12.0 [facility] Comment on above: Performed By: #### L 100.0100 #### [facility] [address] [place], [address] Platelets (Bld) [#/Vol] 339 10*3/uL Normal 150-450 [facility] Comment on above: Performed By: #### L 100.0100 #### [facility] [address] [place], [address] RBC (Bld) [#/Vol] 4.76 M/mm3 Normal 4.2-5.4 [facility] Comment on above: Performed By: #### L 100.0100 #### [facility] [address] [place], [address] RDW SD 35.3 fl Normal 35.1-43.9 [facility] Comment on above: Performed By: #### L 100.0100 #### [facility] [address] [place], [address] WBC (Bld) [#/Vol] 9.0 10*3/uL Normal 4.4-11.0 [facility] Comment on above: Performed By: #### L 100.0100 #### [facility] [address] [place], [address] Comprehensive Metabolic Prof [facility] 06-25-2020 Albumin [Mass/Vol] 4.0 g/dL Normal 3.2-5.0 [facility] Comment on above: Performed By: #### L 500.4050 #### [facility] [address] [place], [address] Albumin/Globulin [Mass ratio] 1.1 {ratio} Normal 0.9-2.4 [facility] Comment on above: Performed By: #### L 500.4050 #### [facility] [address] [place], [address] ALK P 69 U/L Normal 45-117 [facility] Comment on above: Performed By: #### L 500.4050 #### [facility] [address] [place], [address] ALT [Catalytic activity/Vol] 17 U/L Normal 13-56 [facility] Comment on above: Performed By: #### L 500.4050 #### [facility] [address] [place], [address] AST [Catalytic activity/Vol] 11 U/L Low 15-37 [facility] Comment on above: Performed By: #### L 500.4050 #### [facility] [address] [place], [address] Bilirubin [Mass/Vol] 0.40 mg/dL Normal 0.20-1.00 [facility] Comment on above: Result Comment: For patients on eltrombopag therapy, use of Dimension [place] TBIL is not recommended. Performed By: #### L 500.4050 #### [facility] [address] [place], [address] Calcium [Mass/Vol] 9.1 mg/dL Normal 8.5-10.1 [facility] Comment on above: Performed By: #### L 500.4050 #### [facility] [address] [place], [address] Chloride [Moles/Vol] 105 mmol/L Normal 98-107 [facility] Comment on above: Performed By: #### L [id number] #### [facility] [address] [place], [address] CO2 [Moles/Vol] 30.0 mmol/L Normal 21.0-32.0 [facility] Comment on above: Performed By: #### L 500.4050 #### [facility] [address] [place], [address] Creatinine [Mass/Vol] 0.67 mg/dL Normal 0.55-1.02 [facility] Comment on above: Result Comment: The validity of the calculated GFR AND GFRAA in patients over 70 years has not been determined. Clinical correlation is essential. Performed By: #### L 500.4050 #### [facility] [address] [place], [address] EST GFR - AA 139 mL/min Normal >60 [facility] Comment on above: Result Comment: Afri can Swazi GFR Calc Performed By: #### L 500.4050 #### [facility] [address] [place], [address] GAP 5 Normal 5-15 [facility] Comment on above: Performed By: #### L 500.4050 #### [facility] [address] [place], [address] GFR/1.73 sq M predicted among non-blacks MDRD (S/P/Bld) [Vol rate/Area] 115 mL/min/{1.73_m2} Normal >60 [facility] Comment on above: Result Comment: Non- GFR Calc Performed By: #### L 500.4050 #### [facility] [address] [place], [address] Globulin (S) [Mass/Vol] 3.5 g/dL Normal 2.2-4.2 [facility] Comment on above: Performed By: #### L 500.4050 #### [facility] [address] [place], [address] Glucose [Mass/Vol] 83 mg/dL Normal 74-106 [facility] Comment on above: Result Comment: Frank santos note revised GLUCOSE reference range effective 2017. Performed By: #### L 500.4050 #### [facility] [address] [place], [address] Potassium [Moles/Vol] 3.5 mmol/L Normal 3.5-5.1 [facility] Comment on above: Performed By: #### L 500.4050 #### [facility] [address] [place], [address] Sodium [Moles/Vol] 140 mmol/L Normal 136-145 [facility] Comment on above: Performed By: #### L [id number] #### [facility] [address] [place], [address] T PROT 7.5 g/dL Normal 6.4-8.2 [facility] Comment on above: Performed By: #### L [id number] #### [facility] [address] [place], [address] Urea nitrogen [Mass/Vol] 11.9 RATIO Normal 10-20 [facility] Comment on above: Performed By: #### L [id number] #### [facility] [address] [place], [address] Urea nitrogen [Mass/Vol] 8 mg/dL Normal 7-18 [facility] Comment on above: Performed By: #### L 500.4050 #### [facility] [address] [place], [address] HCG QUALITATIVE, URINEon HCG ( test) Ql (U) Negative [facility] [employer] [facility] Comment on above: Testing performed at [place], [place] [address] URINALYSIS, MACROon 05-30-20 20 Bilirubin Ql (U) [...] System Comment on above: Testing performed at [place], [place] [address] Nitrite Ql (U) Negative NEGATIVE [facility] System pH (U) 5.5 [pH] [facility] Protein Ql (U) Negative NEGATIVE mg/dl [facility] Specific gravity (U) [Rel density] 1.025 [facility] Urobilinogen (U) [Mass/Vol] 0.2 [facility] URINE HCG QUALon 05-30-2020 Beta HCG ( test) Ql (U) Negative Normal [facility] Comment on above: Result Comment: Test ing performed at [place] [address] Performed By: #### U HCGT, UMAC #### [place] [address] URINE MACROSCOPICon 05-30-20 20 Bilirubin Ql (U) Negative Normal NEGATIVE [facility] Comment on above: Performed By: #### U HCGT, UMAC #### [place] [address] Clarity (U) CLEAR Normal CLEAR [facility] Comment on above: Performed By: #### U HCGT, UMAC #### [place] [address] Color (U) YELLOW Normal YELLOW [facility] Comment on above: Performed By: #### U HCGT, UMAC #### [place] [address] Glucose Ql (U) Negative Normal NEGATIVE [facility] Comment on above: Performed By: #### U HCGT, UMAC #### [place] [address] pH (U) 5.5 [pH] Normal 5.0-7.0 [facility] Comment on above: Performed By: #### U HCGT, UMAC #### [place] [address] Protein (U) [Mass/Vol] Negative Normal NEGATIVE [facility] Comment on above: Performed By: #### U HCGT, UMAC #### [place] [address] URINE HEMOGLOBIN Negative Normal NEGATIVE [facility] Comment on above: Performed By: #### U HCGT, UMAC #### Testing performed at [facility] [address] [place] [address] URINE KETONE Negative Normal NEGATIVE [facility] Comment on above: Performed By: #### U HCGT, UMAC #### Testing performed at [facility] [address] [place] [address] URINE LEUKOTEST Negative Normal NEGATIVE [facility] Comment on above: Result Comment: Test ing performed at [place] [address] Performed By: #### U HCGT, UMAC #### Testing performed at [place] [id number] URINE NITRATES Negative Normal NEGATIVE [facility] Comment on above: Performed By: #### U HCGT, UMAC #### Testing performed at [address] [address] URINE SPEC GRAVITY 1.025 Normal 1.010-1.025 [facility] Comment on above: Performed By: #### U HCGT, UMAC #### Testing performed at [address] [address] Urobilinogen Qn (U) 0.2 {Edna'U}/dL Normal 0.2-1.0 [facility] Comment on above: Performed By: #### U HCGT, UMAC #### Testing performed at [place] [id number] COVID-19, MOLECULARon 2019 SARS-COV-2 RNA (NIHARIKA) Not Detected Normal Not Detected [facility] Comment on above: Result Comment: This [...] at the following links: For Healthcare Providers: https://www.fda.gov/media/663703/download For Patients: https://www.fda.gov/media/990149/download Performed By: #### L [id number] #### [facility] [place] [address] Homero Kaur M.D. [id number] CBC W/Diff, Automatedon - Absolute Neut 4.6 X10 3/uL Normal 2.0-7.7 [facility] Comment on above: Performed By: #### L 100.0100 #### [facility] [address] [place], [address] Basophils/100 WBC (Bld) 0.4 % Normal 0-1 [facility] Comment on above: Performed By: #### L 100.0100 #### [facility] [address] [place], [address] Eosinophils/100 WBC (Bld) 1.6 % Normal 0-5 [facility] Comment on above: Performed By: #### L 100.0100 #### [facility] [address] [place], [address] Erythrocyte distribution width (RBC) [Ratio] 12.5 % Normal 11.6-14.6 [facility] Comment on above: Performed By: #### L 100.0100 #### [facility] [address] [place], [address] Hematocrit (Bld) [Volume fraction] 40.2 % Normal 37-47 [facility] Comment on above: Performed By: #### L 100.0100 #### [facility] [address] [place], [address] Hemoglobin (Bld) [Mass/Vol] 13.0 g/dL Normal 12.0-15.0 [facility] Comment on above: Performed By: #### L 100.0100 #### [facility] [address] [place], [address] IM GRAN % 0.300 % Normal 0.0-0.9 [facility] Comment on above: Result Comment: IG% - Immature Granulocytes (promyelocytes, myelocytes and metamyelocytes) > 1% indicates that a LEFT SHIFT is Present. Performed By: #### L 100.0100 #### [facility] [address] [place], [address] Lymphocytes (Bld) [#/Vol] 1.77 X10 3/uL Normal 0.83-4.51 [facility] Comment on above: Performed By: #### L 100.0100 #### [facility] [address] [place], [address] Lymphocytes/100 WBC (Bld) 25.4 % Normal 19-41 [facility] Comment on above: Performed By: #### L 100.0100 #### [facility] [address] [place], [address] MCH (RBC) [Entitic mass] 28.1 pg Normal 27.0-32.0 [facility] Comment on above: Performed By: #### L 100.0100 #### [facility] [address] [place], [address] MCHC (RBC) [Mass/Vol] 32.3 g/dL Normal 32-36 [facility] Comment on above: Performed By: #### L 100.0100 #### [facility] [address] [place], [address] MCV (RBC) [Entitic vol] 86.8 fL Normal 81-99 [facility] Comment on above: Performed By: #### L 100.0100 #### [facility] [address] [place], [address] Monocytes/100 WBC (Bld) 6.6 % Normal 0-10 [facility] Comment on above: Performed By: #### L 100.0100 #### [facility] [address] [place], [address] Neutrophils/100 WBC (Bld) 65.7 % Normal 47-70 [facility] Comment on above: Performed By: #### L 100.0100 #### [facility] [address] [place], [address] NRBC, FLAGGED 0 % Normal 0-5 [facility] Comment on above: Performed By: #### L 100.0100 #### [facility] [address] [place], [address] Platelet mean volume (Bld) [Entitic vol] 10.7 fL Normal 6.2-12.0 [facility] Comment on above: Performed By: #### L 100.0100 #### [facility] [address] [place], [address] Platelets (Bld) [#/Vol] 288 10*3/uL Normal 150-450 [facility] Comment on above: Performed By: #### L 100.0100 #### [facility] [address] [place], [address] RBC (Bld) [#/Vol] 4.63 M/mm3 Normal 4.2-5.4 [facility] Comment on above: Performed By: #### L 100.0100 #### [facility] [address] [place], [address] RDW SD 38.6 fl Normal 35.1-43.9 [facility] Comment on above: Performed By: #### L 100.0100 #### [facility] [address] [place], [address] WBC (Bld) [#/Vol] 7.0 10*3/uL Normal 4.4-11.0 [facility] Comment on above: Performed By: #### L 100.0100 #### [facility] [address] [place], [address] [facility] Albumin [Mass/Vol] 3.7 g/dL Normal 3.2-5.0 [facility] Comment on above: Performed By: #### L 500.4050 #### [facility] [address] [place], [address] Albumin/Globulin [Mass ratio] 1.1 {ratio} Normal 0.9-2.4 [facility] Comment on above: Performed By: #### L 500.4050 #### [facility] [address] [place], [address] ALK P 60 U/L Normal 45-117 [facility] Comment on above: Performed By: #### L 500.4050 #### [facility] [address] [place], [address] ALT [Catalytic activity/Vol] 21 U/L Normal 13-56 [facility] Comment on above: Performed By: #### L 500.4050 #### [facility] [address] [place], [address] AST [Catalytic activity/Vol] 12 U/L Low 15-37 [facility] Comment on above: Performed By: #### L 500.4050 #### [facility] [address] [place], [address] Bilirubin [Mass/Vol] 0.40 mg/dL Normal 0.20-1.00 [facility] Comment on above: Result Comment: For patients on eltrombopag therapy, use of Dimension [place] TBIL is not recommended. Performed By: #### L 500.4050 #### [facility] [address] [place], [address] Calcium [Mass/Vol] 8.8 mg/dL Normal 8.5-10.1 [facility] Comment on above: Performed By: #### L 500.4050 #### [facility] [address] [place], [address] Chloride [Moles/Vol] 105 mmol/L Normal 98-107 [facility] Comment on above: Performed By: #### L 500.4050 #### [facility] [address] [place], [address] CO2 [Moles/Vol] 28.0 mmol/L Normal 21.0-32.0 [facility] Comment on above: Performed By: #### L 500.4050 #### [facility] [address] [place], [address] Creatinine [Mass/Vol] 0.74 mg/dL Normal 0.55-1.02 [facility] Comment on above: Result Comment: The validity of the calculated GFR AND GFRAA in patients over 70 years has not been determined. Clinical correlation is essential. Performed By: #### L 500.4050 #### [facility] [address] [place], [address] EST GFR - AA 125 mL/min Normal >60 [facility] Comment on above: Result Comment: Afri can Swazi GFR Calc Performed By: #### L 500.4050 #### [facility] [address] [place], [address] GAP 6 Normal 5-15 [facility] Comment on above: Performed By: #### L 500.4050 #### [facility] [address] [place], [address] GFR/1.73 sq M predicted among non-blacks MDRD (S/P/Bld) [Vol rate/Area] 103 mL/min/{1.73_m2} Normal >60 [facility] Comment on above: Result Comment: Non- GFR Calc Performed By: #### L 500.4050 #### [facility] [address] [place], [address] Globulin (S) [Mass/Vol] 3.4 g/dL Normal 2.2-4.2 [facility] Comment on above: Performed By: #### L 500.4050 #### [facility] [address] [place], [address] Glucose [Mass/Vol] 76 mg/dL Normal 74-106 [facility] Comment on above: Result Comment: Frank santos note revised GLUCOSE reference range effective 2017. Performed By: #### L 500.4050 #### [facility] [address] [place], [address] Potassium [Moles/Vol] 3.6 mmol/L Normal 3.5-5.1 [facility] Comment on above: Performed By: #### L 500.4050 #### [facility] [address] [place], [address] Sodium [Moles/Vol] 139 mmol/L Normal 136-145 [facility] Comment on above: Performed By: #### L 500.4050 #### [facility] [address] [place], [address] T PROT 7.1 g/dL Normal 6.4-8.2 [facility] Comment on above: Performed By: #### L 500.4050 #### [facility] [address] [place], [address] Urea nitrogen [Mass/Vol] 9 mg/dL Normal 7-18 [facility] Comment on above: Performed By: #### L 500.4050 #### [facility] [address] [place], [address] Urea nitrogen [Mass/Vol] 12.2 RATIO Normal 10-20 [facility] Comment on above: Performed By: #### L 500.4050 #### [facility] [address] [place], [address] CBC W/Diff, Automatedon 04-0 -2019 Absolute Neut 5.3 X10 3/uL Normal 2.0-7.7 [facility] Comment on above: Performed By: #### L 100.0100 #### [facility] [address] [place], [address] Basophils/100 WBC (Bld) 0.3 % Normal 0-1 [facility] Comment on above: Performed By: #### L 100.0100 #### [facility] [address] [place], [address] Eosinophils/100 WBC (Bld) 1.0 % Normal 0-5 [facility] Comment on above: Performed By: #### L 100.0100 #### [facility] [address] [place], [address] Erythrocyte distribution width (RBC) [Ratio] 12.3 % Normal 11.6-14.6 [facility] Comment on above: Performed By: #### L 100.0100 #### [facility] [address] [place], [address] Hematocrit (Bld) [Volume fraction] 39.4 % Normal 37-47 [facility] Comment on above: Performed By: #### L 100.0100 #### [facility] [address] [place], [address] Hemoglobin (Bld) [Mass/Vol] 12.9 g/dL Normal 12.0-15.0 [facility] Comment on above: Performed By: #### L 100.0100 #### [facility] [address] [place], [address] IM GRAN % 1.000 % High 0.0-0.9 [facility] Comment on above: Result Comment: IG% - Immature Granulocytes (promyelocytes, myelocytes and metamyelocytes) > 1% indicates that a LEFT SHIFT is Present. Performed By: #### L 100.0100 #### [facility] [address] [place], [address] Lymphocytes (Bld) [#/Vol] 1.86 X10 3/uL Normal 0.83-4.51 [facility] Comment on above: Performed By: #### L 100.0100 #### [facility] [address] [place], [address] Lymphocytes/100 WBC (Bld) 23.9 % Normal 19-41 [facility] Comment on above: Performed By: #### L 100.0100 #### [facility] [address] [place], [address] MCH (RBC) [Entitic mass] 28.0 pg Normal 27.0-32.0 [facility] Comment on above: Performed By: #### L 100.0100 #### [facility] [address] [place], [address] MCHC (RBC) [Mass/Vol] 32.7 g/dL Normal 32-36 [facility] Comment on above: Performed By: #### L 100.0100 #### [facility] [address] [place], [address] MCV (RBC) [Entitic vol] 85.5 fL Normal 81-99 [facility] Comment on above: Performed By: #### L 100.0100 #### [facility] [address] [place], [address] Monocytes/100 WBC (Bld) 6.0 % Normal 0-10 [facility] Comment on above: Performed By: #### L 100.0100 #### [facility] [address] [place], [address] Neutrophils/100 WBC (Bld) 67.8 % Normal 47-70 [facility] Comment on above: Performed By: #### L 100.0100 #### [facility] [address] [place], [address] NRBC, FLAGGED 0 % Normal 0-5 [facility] Comment on above: Performed By: #### L 100.0100 #### [facility] [address] [place], [address] Platelet mean volume (Bld) [Entitic vol] 10.4 fL Normal 6.2-12.0 [facility] Comment on above: Performed By: #### L 100.0100 #### [facility] [address] [place], [address] Platelets (Bld) [#/Vol] 264 10*3/uL Normal 150-450 [facility] Comment on above: Performed By: #### L 100.0100 #### [facility] [address] [place], [address] RBC (Bld) [#/Vol] 4.61 M/mm3 Normal 4.2-5.4 [facility] Comment on above: Performed By: #### L 100.0100 #### [facility] [address] [place], [address] RDW SD 37.8 fl Normal 35.1-43.9 [facility] Comment on above: Performed By: #### L 100.0100 #### [facility] [address] [place], [address] WBC (Bld) [#/Vol] 7.8 10*3/uL Normal 4.4-11.0 [facility] Comment on above: Performed By: #### L 100.0100 #### [facility] [address] [place], [address] Comprehensive Metabolic Prof ilon 12-14-2019 Albumin [Mass/Vol] 3.9 g/dL Normal 3.2-5.0 [facility] Comment on above: Performed By: #### L 500.4050 #### [facility] [address] [place], [address] Albumin/Globulin [Mass ratio] 1.2 {ratio} Normal 0.9-2.4 [facility] Comment on above: Performed By: #### L 500.4050 #### [facility] [address] [place], [address] ALK P 65 U/L Normal 45-117 [facility] Comment on above: Performed By: #### L 500.4050 #### [facility] [facility] [address] [place], [address] ALT [Catalytic activity/Vol] 20 U/L Normal 13-56 [facility] Comment on above: Performed By: #### L 500.4050 #### [facility] [address] [place], [address] AST [Catalytic activity/Vol] 11 U/L Low 15-37 [facility] Comment on above: Performed By: #### L 500.4050 #### [facility] [address] [place], [address] Bilirubin [Mass/Vol] 0.40 mg/dL Normal 0.20-1.00 [facility] Comment on above: Result Comment: For patients on eltrombopag therapy, use of Dimension [place] TBIL is not recommended. Performed By: #### L 500.4050 #### [facility] [address] [place], [address] Calcium [Mass/Vol] 8.9 mg/dL Normal 8.5-10.1 [facility] Comment on above: Performed By: #### L 500.4050 #### [facility] [address] [place], [address] Chloride [Moles/Vol] 105 mmol/L Normal 98-107 [facility] Comment on above: Performed By: #### L 500.4050 #### [facility] [address] [place], [address] CO2 [Moles/Vol] 30.0 mmol/L Normal 21.0-32.0 [facility] Comment on above: Performed By: #### L 500.4050 #### [facility] [address] [place], [address] Creatinine [Mass/Vol] 0.69 mg/dL Normal 0.55-1.02 [facility] Comment on above: Result Comment: The validity of the calculated GFR AND GFRAA in patients over 70 years has not been determined. Clinical correlation is essential. Performed By: #### L 500.4050 #### [facility] [address] [place], [address] EST GFR - AA 135 mL/min Normal >60 [facility] Comment on above: Result Comment: Afri can Swazi GFR Calc Performed By: #### L 500.4050 #### [facility] [address] [place], [address] GAP 4 Low 5-15 [facility] Comment on above: Performed By: #### L 500.4050 #### [facility] [address] [place], [address] GFR/1.73 sq M predicted among non-blacks MDRD (S/P/Bld) [Vol rate/Area] 112 mL/min/{1.73_m2} Normal >60 [facility] Comment on above: Result Comment: Non- GFR Calc Performed By: #### L 500.4050 #### [facility] [address] [place], [address] Globulin (S) [Mass/Vol] 3.2 g/dL Normal 2.2-4.2 [facility] Comment on above: Performed By: #### L 500.4050 #### [facility] [address] [place], [address] Glucose [Mass/Vol] 81 mg/dL Normal 74-106 [facility] Comment on above: Result Comment: Frank santos note revised GLUCOSE reference range effective 2017. Performed By: #### L 500.4050 #### [facility] [address] [place], [address] Potassium [Moles/Vol] 3.9 mmol/L Normal 3.5-5.1 [facility] Comment on above: Performed By: #### L 500.4050 #### [facility] [address] [place], [address] Sodium [Moles/Vol] 139 mmol/L Normal 136-145 [facility] Comment on above: Performed By: #### L 500.4050 #### [facility] [address] [place], [address] T PROT 7.1 g/dL Normal 6.4-8.2 [facility] Comment on above: Performed By: #### L 500.4050 #### [facility] [address] [place], [address] Urea nitrogen [Mass/Vol] 14.5 RATIO Normal 10-20 [facility] Comment on above: Performed By: #### L 500.4050 #### [facility] [address] [place], [address] Urea nitrogen [Mass/Vol] 10 mg/dL Normal 7-18 [facility] Comment on above: Performed By: #### L 500.4050 #### [facility] [address] [place], [address] CBC W/Diff, Automatedon 09-06 Absolute Neut 5.0 X10 3/uL Normal 2.0-7.7 [facility] Comment on above: Performed By: #### L 100.0100 #### [facility] [address] [place], [address] Basophils/100 WBC (Bld) 0.4 % Normal 0-1 [facility] Comment on above: Performed By: #### L 100.0100 #### [facility] [address] [place], [address] Eosinophils/100 WBC (Bld) 1.1 % Normal 0-5 [facility] Comment on above: Performed By: #### L 100.0100 #### [facility] [address] [place], [address] Erythrocyte distribution width (RBC) [Ratio] 12.2 % Normal 11.6-14.6 [facility] Comment on above: Performed By: #### L 100.0100 #### [facility] [address] [place], [address] Hematocrit (Bld) [Volume fraction] 39.5 % Normal 37-47 [facility] Comment on above: Performed By: #### L 100.0100 #### [facility] [address] [place], [address] Hemoglobin (Bld) [Mass/Vol] 13.0 g/dL Normal 12.0-15.0 [facility] Comment on above: Performed By: #### L 100.0100 #### [facility] [address] [place], [address] IM GRAN % 0.300 % Normal 0.0-0.9 [facility] Comment on above: Result Comment: IG% - Immature Granulocytes (promyelocytes, myelocytes and metamyelocytes) > 1% indicates that a LEFT SHIFT is Present. Performed By: #### L 100.0100 #### [facility] [address] [place], [address] Lymphocytes (Bld) [#/Vol] 1.95 X10 3/uL Normal 0.83-4.51 [facility] Comment on above: Performed By: #### L 100.0100 #### [facility] [address] [place], [address] Lymphocytes/100 WBC (Bld) 26.0 % Normal 19-41 [facility] Comment on above: Performed By: #### L 100.0100 #### [facility] [address] [place], [address] MCH (RBC) [Entitic mass] 27.8 pg Normal 27.0-32.0 [facility] Comment on above: Performed By: #### L 100.0100 #### [facility] [address] [place], [address] MCHC (RBC) [Mass/Vol] 32.9 g/dL Normal 32-36 [facility] Comment on above: Performed By: #### L 100.0100 #### [facility] [address] [place], [address] MCV (RBC) [Entitic vol] 84.4 fL Normal 81-99 [facility] Comment on above: Performed By: #### L 100.0100 #### [facility] [address] [place], [address] Monocytes/100 WBC (Bld) 6.1 % Normal 0-10 [facility] Comment on above: Performed By: #### L 100.0100 #### [facility] [address] [place], [address] Neutrophils/100 WBC (Bld) 66.1 % Normal 47-70 [facility] Comment on above: Performed By: #### L 100.0100 #### [facility] [address] [place], [address] NRBC, FLAGGED 0 % Normal 0-5 [facility] Comment on above: Performed By: #### L 100.0100 #### [facility] [address] [place], [address] Platelet mean volume (Bld) [Entitic vol] 10.7 fL Normal 6.2-12.0 [facility] Comment on above: Performed By: #### L 100.0100 #### [facility] [address] [place], [address] Platelets (Bld) [#/Vol] 302 10*3/uL Normal 150-450 [facility] Comment on above: Performed By: #### L 100.0100 #### [facility] [address] [place], [address] RBC (Bld) [#/Vol] 4.68 M/mm3 Normal 4.2-5.4 [facility] Comment on above: Performed By: #### L 100.0100 #### [facility] [address] [place], [address] RDW SD 36.5 fl Normal 35.1-43.9 [facility] Comment on above: Performed By: #### L 100.0100 #### [facility] [address] [place], [address] WBC (Bld) [#/Vol] 7.5 10*3/uL Normal 4.4-11.0 [facility] Comment on above: Performed By: #### L 100.0100 #### [facility] [address] [place], [address] Comprehensive Metabolic [facility] 09-20-2019 Albumin [Mass/Vol] 3.9 g/dL Normal 3.2-5.0 [facility] Comment on above: Performed By: #### L 500.4050 #### [facility] [address] [place], [address] Albumin/Globulin [Mass ratio] 1.2 {ratio} Normal 0.9-2.4 [facility] Comment on above: Performed By: #### L 500.4050 #### [facility] [address] [place], [address] ALK P 66 U/L Normal 45-117 [facility] Comment on above: Performed By: #### L 500.4050 #### [facility] [address] [place], [address] ALT [Catalytic activity/Vol] 18 U/L Normal 13-56 [facility] Comment on above: Performed By: #### L 500.4050 #### [facility] [address] [place], [address] AST [Catalytic activity/Vol] 10 U/L Low 15-37 [facility] Comment on above: Performed By: #### L 500.4050 #### [facility] [address] [place], [address] Bilirubin [Mass/Vol] 0.40 mg/dL Normal 0.20-1.00 [facility] Comment on above: Performed By: #### L 500.4050 #### [facility] [address] [place], [address] Calcium [Mass/Vol] 9.4 mg/dL Normal 8.5-10.1 [facility] Comment on above: Performed By: #### L 500.4050 #### [facility] [address] [place], [address] Chloride [Moles/Vol] 108 mmol/L High 98-107 [facility] Comment on above: Performed By: #### L 500.4050 #### [facility] [address] [place], [address] CO2 [Moles/Vol] 28.0 mmol/L Normal 21.0-32.0 [facility] Comment on above: Performed By: #### L 500.4050 #### [facility] [address] [place], [address] Creatinine [Mass/Vol] 0.85 mg/dL Normal 0.55-1.02 [facility] Comment on above: Result Comment: The validity of the calculated GFR AND GFRAA in patients over 70 years has not been determined. Clinical correlation is essential. Performed By: #### L 500.4050 #### [facility] [address] [place], [address] EST GFR - AA 106 mL/min Normal >60 [facility] Comment on above: Result Comment: Afri can Swazi GFR Calc Performed By: #### L 500.4050 #### [facility] [address] [place], [address] GAP 3 Low 5-15 [facility] Comment on above: Performed By: #### L 500.4050 #### [facility] [address] [place], [address] GFR/1.73 sq M predicted among non-blacks MDRD (S/P/Bld) [Vol rate/Area] 88 mL/min/{1.73_m2} Normal >60 [facility] Comment on above: Result Comment: Non- GFR Calc Performed By: #### L 500.4050 #### [facility] [address] [place], [address] Globulin (S) [Mass/Vol] 3.2 g/dL Normal 2.2-4.2 [facility] Comment on above: Performed By: #### L 500.4050 #### [facility] [address] [place], [address] Glucose [Mass/Vol] 64 mg/dL Low 74-106 [facility] Comment on above: Result Comment: Frank santos note revised GLUCOSE reference range effective 2017. Performed By: #### L 500.4050 #### [facility] [address] [place], [address] Potassium [Moles/Vol] 4.2 mmol/L Normal 3.5-5.1 [facility] Comment on above: Performed By: #### L 500.4050 #### [facility] [address] [place], [address] Sodium [Moles/Vol] 139 mmol/L Normal 136-145 [facility] Comment on above: Performed By: #### L 500.4050 #### [facility] [address] [place], [address] T PROT 7.1 g/dL Normal 6.4-8.2 [facility] Comment on above: Performed By: #### L 500.4050 #### [facility] [address] [place], [address] Urea nitrogen [Mass/Vol] 11 mg/dL Normal 7-18 [facility] Comment on above: Performed By: #### L 500.4050 #### [facility] [address] [place], [address] Urea nitrogen [Mass/Vol] 12.9 RATIO Normal 10-20 [facility] Comment on above: Performed By: #### L 500.4050 #### [facility] [address] [place], [address] Lab Miscellaneouson 02-01-20 19 Status See Ref Lab Report Normal [facility] Comment on above: Order Comment: [place] [id number] Performed By: #### 1 [id number] #### [facility] Send Outs Subsection [facility] [place] [address] Status See Ref Lab Report Normal [facility] Comment on above: Order Comment: Anti CCP [id number] Performed By: #### 1 [id number] #### [facility] [employer] [facility] [place] [address] RF Quanton 01-28-2019 RA Latex Turbid <10.0 Normal 0.0-13.9 [facility] Comment on above: Result Comment: Perf ormed At: [facility] [address] [id number] Renana Medley PhD Ph:[phone] Performed By: #### 1 [id number] #### [facility] [employer] [address] [place] [address] Auto Diffon 01-27-2019 Basophils (Bld) [#/Vol] 0.0 E3/mcL Normal 0.0-0.2 [facility] Comment on above: Order Comment: Order Added by Discern Expert. Performed By: #### 2 [id number] #### [facility] [employer] [address] [place] [address] Basophils/100 WBC (Bld) 0.5 % Normal 0.0-2.0 [facility] Comment on above: Order Comment: Order Added by Discern Expert. Performed By: #### 2 [id number] #### [facility] [employer] [address] [place] [address] Eos Absolute 0.1 E3/mcL Normal 0.0-0.7 [facility] Comment on above: Order Comment: Order Added by Discern Expert. Performed By: #### 2 [id number] #### [facility] [employer] [address] [place] [address] Eosinophils/100 WBC (Bld) 1.8 % Normal 0.0-11.0 [facility] Comment on above: Order Comment: Order Added by Discern Expert. Performed By: #### 2 [id number] #### [facility] [employer] [address] [place] [address] Lymphocytes (Bld) [#/Vol] 1.5 E3/mcL Normal 1.2-3.4 [facility] Comment on above: Order Comment: Order Added by Discern Expert. Performed By: #### 2 [id number] #### [facility] [employer] [address] [place] [address] Lymphocytes/100 WBC (Bld) 32.6 % Normal 20.0-55.0 [facility] Comment on above: Order Comment: Order Added by Discern Expert. Performed By: #### 2 [id number] #### [facility] [employer] [address] [place] [address] Obion Absolute 0.3 E3/mcL Normal 0.0-0.7 [facility] Comment on above: Order Comment: Order Added by Discern Expert. Performed By: #### 2 [id number] #### MIYA SalcedoHemo [address] [place] [address] Monocytes/100 WBC (Bld) 7.2 % Normal 0.0-10.0 [facility] Comment on above: Order Comment: Order Added by Discern Expert. Performed By: #### 2 [id number] #### MIYA SalcedoHemo [address] [place] [address] Neutro Absolute 2.7 E3/mcL Normal 1.4-6.5 [facility] Comment on above: Order Comment: Order Added by Discern Expert. Performed By: #### 2 [id number] #### [facility] [employer] [address] [place] [address] Neutro Auto 57.9 % Normal 37.0-75.0 [facility] Comment on above: Order Comment: Order Added by Discern Expert. Performed By: #### 2 [id number] #### MIYA SalcedoHemo [facility] [place] [address] CBC w/ Auto Diffon 9 Erythrocyte distribution width (RBC) [Ratio] 12.5 % Normal 11.5-14.5 [facility] Comment on above: Performed By: #### 2 [id number] #### MIYA SalcedoHemo [address] [place] [address] Hematocrit (Bld) [Volume fraction] 38.8 % Normal 36.0-48.0 [facility] Comment on above: Performed By: #### 2 [id number] #### MIYA SalcedoHemo [address] [place] [address] Hemoglobin (Bld) [Mass/Vol] 13.3 g/dL Normal 12.0-16.0 [facility] Comment on above: Performed By: #### 2 [id number] #### MIYA SalcedoHemo [address] [place] [address] MCH (RBC) [Entitic mass] 27.7 pg Normal 27.0-31.0 [facility] Comment on above: Performed By: #### 2 [id number] #### MIYA SalcedoHemo [address] [place] [address] MCHC (RBC) [Mass/Vol] 34.3 g/dL Normal 33.0-37.0 [facility] Comment on above: Performed By: #### 2 [id number] #### MIYA SalcedoHemo [facility] [place] [address] MCV (RBC) [Entitic vol] 80.7 fL Normal 78.0-100.0 [facility] Comment on above: Performed By: #### 2 738012 #### MIYA DenisseHemo [facility] [place] [address] Platelet mean volume (Bld) [Entitic vol] 8.5 fL Normal 7.4-11.0 [facility] Comment on above: Performed By: #### 2 700758 #### MIYA DenisseHemo [facility] [place] [address] Platelets (Bld) [#/Vol] 303 E3/mcL Normal 130-400 [facility] Comment on above: Performed By: #### 2 [id number] #### [facility] [employer] [address] [place] [address] RBC (Bld) [#/Vol] 4.80 E6/mcL Normal 3.90-5.40 [facility] Comment on above: Performed By: #### 2 626651 #### MIYA DenisseHemo [address] [place] [address] WBC (Bld) [#/Vol] 4.6 E3/mcL Normal 3.6-11.0 [facility] Comment on above: Performed By: #### 2 086795 #### [facility] Rem[employer] [address] [place] [address] CMPon 01-27-2019 Albumin [Mass/Vol] 4.1 g/dL Normal 3.4-5.0 [facility] Comment on above: Performed By: #### 2 [id number] #### MI[facility] [employer] [address] [place] [address] Albumin/Globulin [Mass ratio] 1.4 {ratio} Normal 1.1-1.9 [facility] Comment on above: Performed By: #### 2 [id number] #### [facility] [employer] [address] [place] [address] Alk Phos 81 Int._Unit/L Normal 33-110 [facility] Comment on above: Performed By: #### 2 [id number] #### [employer] [employer] [address] [place] [address] ALT [Catalytic activity/Vol] 10 Int._Unit/L Normal 7-45 [facility] Comment on above: Performed By: #### 2 [id number] #### [facility] [employer] [address] [place] [address] Anion gap [Moles/Vol] 9 mmol/L Low 10-20 [facility] Comment on above: Performed By: #### 2 [id number] #### [facility] [employer] [address] [place] [address] AST [Catalytic activity/Vol] 13 Int._Unit/L Normal 9-39 [facility] Comment on above: Performed By: #### 2 [id number] #### [facility] [employer] [address] [place] [address] Bili Total 0.36 mg/dL Normal 0.00-1.20 [facility] Comment on above: Performed By: #### 2 [id number] #### [facility] [employer] [address] [place] [address] Calcium [Mass/Vol] 9.6 mg/dL Normal 8.6-10.3 [facility] Comment on above: Performed By: #### 2 175927 #### [facility] [employer] [address] [place] [address] Chloride [Moles/Vol] 106 mmol/L Normal 98-107 [facility] Comment on above: Performed By: #### 2 133081 #### [facility] [employer] [address] [place] [address] CO2 [Moles/Vol] 29.0 mmol/L Normal 21.0-32.0 [facility] Comment on above: Performed By: #### 2 623686 #### [facility] [employer] [address] [place] [address] Creatinine [Mass/Vol] 0.7 mg/dL Normal 0.5-1.1 [facility] Comment on above: Performed By: #### 2 [id number] #### [facility] [employer] [address] [place] [address] Globulin (S) [Mass/Vol] 3.0 g/dL Normal 2.0-4.0 [facility] Comment on above: Performed By: #### 2 467346 #### [employer] [employer] [address] [place] [address] Glucose [Mass/Vol] 95 mg/dL Normal 70-99 [facility] Comment on above: Performed By: #### 2 235417 #### [employer] [employer] [address] [place] [address] Potassium [Moles/Vol] 4.2 mmol/L Normal 3.5-5.3 [facility] Comment on above: Performed By: #### 2 187860 #### [employer] [employer] [address] [place] [address] Protein [Mass/Vol] 7.0 g/dL Normal 6.4-8.2 [facility] Comment on above: Performed By: #### 2 [id number] #### [employer] [employer] [address] [place] [address] Sodium [Moles/Vol] 140 mmol/L Normal 136-145 [facility] Comment on above: Performed By: #### 2 [id number] #### [facility] [employer] [address] [place] [address] Urea nitrogen [Mass/Vol] 13 mg/dL Normal 6-23 [facility] Comment on above: Performed By: #### 2 074046 #### [facility] [employer] [address] [place] [address] Urea nitrogen/Creatinine [Mass ratio] 18.6 ratio Normal 5.4-30.0 [facility] Comment on above: Performed By: #### 2 [id number] #### [facility] [employer] [address] [place] [address] CRPon 01-27-2019 CRP [Mass/Vol] 0.36 mg/dL Normal 0.00-1.00 [facility] Comment on above: Performed By: #### 2 [id number] #### [facility] [employer] [address] [place] [address] Lab Miscellaneouson 01-28-20 19 Test Name [id number] Normal [facility] Comment on above: Order Comment: [place] [id number] Performed By: #### 1 [id number] #### MIYA Send Outs Subsection [address] [place] [address] Test Name [id number] [facility] Comment on above: Order Comment: Anti CCP [id number] Performed By: #### 1 [id number] #### MI[facility] Send Outs Subsection [address] [place] [address] Sed Rate Automatedon 019 Sed Rate Automated 9 mm/hr [facility] Comment on above: Result Comment: AGE- SPECIFIC REFERENCE RANGES FOR SEDIMENTATION RATE AUTOMATED REFERENCE RANGE - MM/HR AGE MEN WOMEN 0-2 0-2 - PUBERTY 3-13 3-13 PUBERTY - 50 YRS 0-15 0-20 > 50 YRS 0-20 0-30 Performed By: #### 1 [id number] #### MIYA Hematology Manual Subsection [facility] [id number] XR Spine Cervical 2 or 3 Vie wson 01-27-2019 XR Spine Cervical 2 or 3 Views Exam Date/Time: 01/27/2019 10:54 EDT Reason for Exam: Neck Pain Report STUDY: XR Spine Cervical 2 or 3 Views; 01/27/2019 10:54 am INDICATION: Neck Pain. COMPARISON: None. ACCESSION NUMBER(S): [id number] ORDERING CLINICIAN: Bj Leon TECHNIQUE: 3 views [...] Signed by: Yanick Adams MD Technologist: HLNahun [facility] eGFRon 01-27-2019 GFR/1.73 sq M predicted among non-blacks MDRD (S/P/Bld) [Vol rate/Area] mL/min/{1.73_m2} [facility] Comment on above: Order Comment: Order added by Discern Expert. Performed By: #### 1 [id number] #### MI[facility] [facility] [id number] Vital Signs Date Time Vital Sign Value Performing Clinician Facility 08-03-2023 09:35-0500 Body height 165.1 cm Monica Tulio Other [facility] Other 08-03-2023 09:35-0500 Body mass index (BMI) [Ratio] 26.39 kg/m2 Monica Antunez Other [facility] Other 08-03-2023 09:35-0500 Body temperature 99.1 [degF] Monica Antunez Other [facility] Other 08-03-2023 09:35-0500 Body weight 71.94 kg Monica Antunez Other [facility] Other 08-03-2023 09:35-0500 Diastolic blood pressure 72 mm[Hg] Monica Antunez Other [facility] Other 08-03-2023 09:35-0500 Respiratory rate 18 /min Monica Antunez Other [facility] Other 08-03-2023 09:35-0500 SaO2% (BldA) [Mass fraction] 99 % Monica Antunez Other [facility] Other 08-03-2023 09:35-0500 Systolic blood pressure 111 mm[Hg] Monica Antunez Other [facility] Other 05-09-2023 11:00-0400 Body height 165.1 cm Lisa Carpio Other [facility] Other 05-09-2023 11:00-0400 Body mass index (BMI) [Ratio] 25.29 kg/m2 Lisa Carpio Other [facility] Other 05-09-2023 11:00-0400 Body temperature 98 [degF] Lisa Carpio Other [facility] Other 05-09-2023 11:00-0400 Body weight 68.95 kg Lisa Carpio Other [facility] Other 05-09-2023 11:00-0400 Diastolic blood pressure 64 mm[Hg] Lisa Jansenmond Other [facility] Other 05-09-2023 11:00-0400 Respiratory rate 18 /min Lisa Jansenmond Other [facility] Other 05-09-2023 11:00-0400 SaO2% (BldA) [Mass fraction] 96 % Lisa Carpio Other [facility] Other 05-09-2023 11:00-0400 Systolic blood pressure 98 mm[Hg] Lisa Carpio Other [facility] Other 05-30-2020 09:15-0400 BP Diastolic 68 mm[Hg] [facility] 05-30-2020 09:15-0400 BP Systolic 102 mm[Hg] [facility] 05-30-2020 09:15-0400 Pulse (Heart Rate) 88 /min [facility] 05-30-2020 09:15-0400 Pulse Oximetry 99 % [facility] 05-30-2020 09:15-0400 Respiratory Rate 16 /min [facility] 05-30-2020 08:14-0400 Body Temperature 97.39 [degF] Van [facility] 05-30-2020 06:27-0400 BMI (Body Mass Index) 21.63 kg/m2 [facility] 05-30-2020 06:27-0400 Body weight 58.97 kg [facility] 05-30-2020 06:27-0400 Height 165.1 cm [facility] Encounters Encounter Date Encounter Type Care Provider Facility Start: 08-03-2023 End: 08-03-2023 ambulatory Monica Antunez Other [facility] Other Start: 08-03-2023 Office outpatient vi sit 15 minutes Monica Antunez [facility] Start: [facility]-31-20[facility] Start: 05-31-2023 ambulatory HAIR SONG [facility] Start: 05-09-2023 End: 05-09-2023 ambulatory Lisa Carpio Other [facility] Other Start: 05-09-2023 Office outpatient ne w 20 minutes Lisa Carpio [facility] Start: 03-22-2023 End: 03-22-2023 ambulatory [facility] Start: 01-22-2023 End: 01-23-2023 ambulatory LISA MCCARTHY Facility:[facility] Start: 04-12-2022 End: 04-12-[address] BRENDAN TAYLOR . Facility:[facility] Start: 05-30-2020 End: 05-30-2020 Subsequent hospital visit by physician Van Pinedo Work Phone: [facility] Comment on above: HSIL (high grade squ amous intraepithelial lesion) on Pap smear of cervix Start: 05-26-2020 End: 05-26-2020 Patient encounter procedure VAN PINEDO [facility] Start: 05-10-2020 End: 05-10-2020 Patient encounter procedure VAN RODRIGUEZN [facility] Procedures Date Procedure Procedure Detail Performing Clinician Start: 05-30-2020 Choriogonadotropin ( test) [Presence] in Urine Van Pinedo Work Phone: Start: 05-30-2020 Urinalysis, reagent strip without microscopy Van Pinedo Work Phone: Plan of Treatment Date Care Activity Detail Author Start: 05-07-2020 Influenza vaccination INFLUENZA VACC INE (#1) [facility] Start: 2017 Screening for malign ant neoplasm of cervix CERVICAL CANCER SCREENING DISCUSSION [facility] Start: 2015 Third diphtheria, te tanus and acellular pertussis (DTaP) vaccination TDAP (ADULT) [facility] Start: 2014 Tetanus vaccination TETANUS [facility] Start: 2012 Screening for Chlamy makenna trachomatis CHLAMYDIA SCREEN [facility] Start: 2009 HIV screening HIV SCREENING DISCUSSI ON [facility] Start: 2007 Vaccination for twila n papillomavirus HPV VACCINE ADOL (1 - 2-dose series) [facility] Start: 1996 GONORRHEA SCREEN GONORRHEA SCREEN [facility] SURGICAL PATHOLOGY REQUEST SURGICAL PATHOLOGY REQUEST Surg Path Routine HSIL (high grade squamous intraepithelial lesion) on Pap smear of cervix Release Upon Ordering for 1 Occurrences starting 05/30/2020 [facility] Comment on above: Release Upon Orderin g for 1 Occurrences starting 05/30/2020 Payers Date Payer Category Payer Private Health Insurance [employer] [id number] 2019-Present [id number] 2019 Unknown [id number] 1996 Unknown [id number] 1996 Unknown [id number] 1996 Unknown [id number] 1996 Unknown [id number] 1959 Unknown [id number] 1959 Unknown [id number] Social History Date Type Detail Facility Start: 05-30-2020 Tobacco smoking status NHIS Never smoker [facility] Start: 05-30-2020 Tobacco use and exposure Never used [facility] Start: 05-30-2020 Alcohol intake Ex-drinker (finding) [facility] Start: 05-23-2020 Alcohol Comment rarely [facility] Sex Assigned At Not on file [facility] Exposure to SARS-CoV-2 (event) Not sure [facility] Sex Assigned At Sex Assigned At Bir th [facility] Other Evaluation note 08-03-2023 Note Date & [...] treatment plan. Patient left in stable condition [facility] Other Progress note 05-31-2023 Note Date & Type Note Facility 05-31-2023 Note Called and spoke wit h patient - she just picked Corlanor up from her local pharmacy. No questions at this time and we will no longer follow up until time for PA renewal. Mari Voss, [place], [facility] Outpatient Clinical Pharmacist [facility] [phone] 06/03/23 10:57 AM [facility] Progress note 05-31-2023 Note Date & Type Note Facility 05-31-2023 Note New rx received for Corlanor 5mg BID for treatment of G90.A POTS. PA required. Previous meds tried: Florinef (10/27-03/26) Failure Bystolic (10/27-03/26) INTOLERANT Wellbutrin (10/27-03/26) Failure Metoprolol (03/26-Current) Insufficient, sometimes INTOLERANT PA initiated via fax to [facility]. Calling pt to discuss PA process. Pt informed. F/U upon determination. Paul Beck CPhT [facility] 232:54 PM [facility] Progress note 05-31-2023 Note Date & Type Note Facility 05-31-2023 Note PA Approved through 05/29/2024. Patient wants to get it filled at the [facility] in [place]. Transferred prescription via fax ([phone]) at 10:45 AM today. Jesse Rios (Robbie), Dionne, PGY-1 Signal Person 06/01/23 10:47 AM [facility] [phone] [facility] Progress note 05-31-2023 Note Date & Type Note Facility 05-31-2023 Note Zo Lange is a ple asant 27 year old adule referred to Dr Tereso Garcia and the [facility] in the [facility] at the [facility] for an evaluation of known postural orthostatic [...] of [place] and (more content not included)... 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 Stephen Joyce, WANDER-FLIGHT SERVICE SPECIALIST [facility] Physicians Cardiovascular Medicine [facility] History general Narrative - Reported Note Date & Type Note Facility History general Narrative - Reported Type Medical History Seasonal allergic rhinitis Medical History Depression Medical History POTS (postural ortho static tachycardia syndrome) Medical History Vitamin D deficiency, unspecifie d Surgical History LEEP Surgical History wisdom teeth [facility] Other Summary Purpose Family History No Family [...] * LEEP (Loop Electrosurgical Excision Procedure): Post-op (Tamazight) documented in this encounter Assessments Diagnosis Acute post-operative pain- Primary Preop testing Preoperative examination, unspecified HSIL (high grade squamous intraepithelial lesion) on Pap smear of cervix Additional Source Comments INFORMATION SOURCE (unrecogn ized section and content) DATE CREATED AUTHOR 03/18/2019 [facility] DATE CREATED AUTHOR AUTHOR'S ORGANIZ ATION 05/15/2020 [facility] DATE CREATED AUTHOR AUTHOR'S ORGANIZ ATION 05/27/2020 [facility] DATE CREATED AUTHOR AUTHOR'S ORGANIZ ATION 06/06/2020 [facility] DATE CREATED AUTHOR AUTHOR'S ORGANIZ ATION 09/02/2020 [facility] DATE CREATED AUTHOR AUTHOR'S ORGANIZ ATION 01/30/2023 [facility] DATE CREATED AUTHOR AUTHOR'S ORGANIZ ATION 06/14/2023 [facility] Reason for Visit (unrecogniz ed section and content) BODY ACHES, NAUSEA, CONGESTI ON Status Reason Specialty Diagnoses / Procedures Re ferred By Contact Referred To Contact Diagnoses HSIL (high grade squamous intraepithelial lesion) on Pap smear of cervix HSIL (high grade squamous intraepithelial lesion) on Pap smear of cervix [R87.613] Procedures IN CONIZATION CERVIX,LOOP ELECTRD CONIZATION CERVIX W/ LOOP [...] Rx handed to pt, IV discontinued by COMPLIANCE INVESTIGATOR, pt to waiting car via wheelchair in company of ANNUAL GIVING DIRECTOR. Transferred patient to OP bay 1, report given to Jaime SIMS. at bedside. POST OPERATIVE/PROCEDURE NOTE Zo Reza ([id number]) SURGEON Surgeon(s) and Role: * Van Pinedo MD - Primary POTABLE WATER TREATMENT OPERATOR None ANESTHESIOLOGIST POSTAL SUPERINTENDENT: Bao Quintana III, APRN-POSTAL SUPERINTENDENT SURGICAL STAFF Harpooner: Taz Peng RN; Nenita Smyth RN Lead Clinical Research Coordinator: Na Martin PROCEDURE PERFORMED Procedure(s) (LRB): CONIZATION [...] BE BASED ON THE PRIMARY CLINICAL RECORDS. [facility]. provides no warranty or guarantee of the accuracy or completeness of information in this document.
== END 2024-11-11 09:54 | disposition home or self-care (01) ==
LOC: US 09:53
PROVIDERS: PCP Nurse Practitioner Family; Visit Provider Nurse Practitioner Family
DX: N39.0 Urinary tract infection, site not specified (principal); N20.0 Calculus of kidney
CPT/HCPCS: 76770

== ENCOUNTER 2024-11-24 12:40 | Outpatient (OUT) | payer OTHER, SELFPAY ==
--- NOTE | 2024-11-24 12:43 | CT_ITS ---
The [address] [address] Patient Name: ZO GREENFIELD MRN: [id number] date: 1995 Sex: F Assigned Patient Location: CT Current Patient Location: CT Accession/Order Number: [id number] Exam Date: 11/24/2024 14:41 Report Date: 11/24/2024 14:43 At the request of: CLAUDETTE MCCARTHY Procedure: CT abdomen pelvis w con CT ABDOMEN AND PELVIS WITH INTRAVENOUS CONTRAST: CLINICAL HISTORY: Hematuria, urine frequency COMPARISON: None TECHNIQUE: Spiral images were obtained through the abdomen and pelvis following the administration of intravenous contrast. This CT exam was performed using one or more following dose reduction techniques: Automated exposure control, adjustment of the mA and/or kV according to patient size, or use of iterative reconstruction technique. FINDINGS: Lung Bases: [No acute process.] Organs:Liver gallbladder portal vein pancreas spleen and adrenal glands all appear unremarkable. Cystic changes involving the kidneys without definitive stone or hydronephrosis. Aorta appears normal in caliber.[ GI: Stomach is grossly unremarkable. Small bowel appears nondilated. No acute colonic abnormality is seen.[ Pelvis:[Urinary bladder is grossly unremarkable. Uterus is grossly unremarkable. No adnexal mass.] Peritoneum/Retroperitoneum:No free air or free fluid or lymphadenopathy.[ Abd wall/Bones:No acute findings. Osseous structures demonstrate no acute process.[ CT/CT abdomen pelvis w con IMPRESSION: No acute process. No CT abnormality is seen to explain the patient's hematuria. Impression dictated by: Deandre Ramirez Jr., D.O.11/24/2024 2:43 PM Dictation Location[facility] Electronically authenticated by: [id number] Y Date: 11/24/2024 14:43
== END 2024-11-24 12:41 | disposition home or self-care (01) ==
LOC: CT 12:40
PROVIDERS: PCP Nurse Practitioner Family; Visit Provider Nurse Practitioner Family
DX: R31.9 Hematuria, unspecified (principal); R35.0 Frequency of micturition
CPT/HCPCS: 74177; Q9967